=== PATIENT | female | born 1960 | race Caucasian/White ===

== ENCOUNTER 2022-11-09 07:22 | Emergency (ER) | payer OTHER, SELFPAY ==
--- NOTE | ~2022-11-09 | XR_ITS ---
EXAMINATION: XR shoulder RT min 2V DATE: 11/09/2022 07:44 INDICATION: Right shoulder pain. Fall. TECHNIQUE: 4 views of right shoulder were obtained. COMPARISON: None. FINDINGS: Bone alignment is normal. No fracture. Glenohumeral joint is normal. There is severe acromi oclavicular joint osteoarthritis. IMPRESSION: 1. Severe right acromioclavicular joint osteoarthritis. Reviewed, dictated and finalized at location A.
[2022-11-09 07:28] VITALS: BP 129/68; PULSE 76; RESP 18; TEMP 36.3; O2SAT 100
--- NOTE | 2022-11-09 07:30 | ED.UPPEXIN ---
HPI - Extremity Injury (Upper) General Chief Complaint: Extremity Injury, Upper Stated Complaint: right shoulder injury Time Seen by Provider: 11/09/22 07:26 Source: patient and RN notes reviewed Mode of arrival: ambulatory Limitations: no limitations History of Present Illness HPI narrative: This is a right hand dominant 62 year old female who presents for evaluation of right shoulder pain. PAtient states that her dog knocked her down onto her right shoulder. She reports mild pain to right shoulder but she reports she is unable to lift. She has not taken any medication for pain. She reports pain 4/10. She denies hitting her head or LOC. She denies numbness tingling. Related Data Allergies Allergy/AdvReac Type Severity Reaction Status Date / Time Sulfa (Sulfonamide Allergy Unknown Unknown Verified 11/09/22 07:36 Antibiotics) Review of Systems Review of Systems: All systems reviewed & are unremarkable except as noted in HPI and below PMFSH Surgical History Surgical History (Updated 11/09/22 @ 07:31 by Amarilys Pedraza MD) H/O: hysterectomy History of tonsillectomy Social History Social History (Updated 11/09/22 @ 07:31 by Amarilys Pedraza MD) Smoking status: Current every day smoker Exam Const: General: no acute distress and alert Nutritional Appearance: well nourished Orientation/consciousness: patient oriented x3 HENMT: Head: normal to inspection Eyes: EOM: EOMs intact bilaterally Neck: Neck: normal visual inspection Resp: Effort & Inspection: normal respiratory effort Auscultation: clear to auscultation bilaterally Cardio: Rate: regular rate Rhythm: regular rhythm Heart sounds: no murmurs Skin: General skin exam: normal color Rashes: no rashes Wounds: no wounds Neuro: General: patient oriented x3, moves all extremities and CN's II-XI intact bilaterally Extrem: Other: no shoulder deformity, no bruising, no swelling. PAtient is unable to abduct at shoulder due to pain. bilateral equal pedal pulses Psych: Mental Status: mental status grossly normal Affect: normal affect Attitude: cooperative Course Reevaluation(s) Reevaluation #1: I discussed with patient shoulder shows severe osteoarthritis. She has been given ibuprofen and right arm sling. She will follow up with PCP in 1-2 weeks for reassessment. Date: 11/09/22 Time: 08:15 Vital Signs Vital signs: Vital Signs Temperature 97.4 F L 11/09/22 07:28 Pulse Rate 76 11/09/22 07:28 Respiratory Rate 18 11/09/22 07:28 Blood Pressure 129/68 11/09/22 07:28 Pulse Oximetry 100 11/09/22 07:28 Oxygen Delivery Room Air 11/09/22 07:28 Temperature 97.4 F L 11/09/22 07:28 Pulse Rate 76 11/09/22 07:28 Respiratory Rate 18 11/09/22 07:28 Blood Pressure 129/68 11/09/22 07:28 Pulse Oximetry 100 11/09/22 07:28 Oxygen Delivery Room Air 11/09/22 07:28 MDM - Extremity Injury (Upper) Differential Diagnosis Differential diagnosis: Likely dislocation of shoulder, fracture of humerus, fracture of clavicle and other (shoulder sprain. ) Imaging Data Radiologist's impression: ITS Impressions Shoulder X-Ray 11/09/22 07:47 IMPRESSION: 1. Severe right acromioclavicular joint osteoarthritis. Discharge Plan Discharge Clinical Impression: Injury of right shoulder Qualifiers: Encounter type: initial encounter Qualified Code(s): S49.91XA - Unspecified injury of right shoulder and upper arm, initial encounter Patient Disposition: Home, Self-Care Condition: Stable Instructions: How to Use a Sling (ED), Shoulder Pain (ED), Rotator Cuff Injury Exercises (DC) Additional Instructions: Follow up with your primary care provider or orthopedic surgeon in 1-2 weeks if pain has not improved. Prescriptions: New ibuprofen 600 mg tablet 600 mg PO TID PRN (Reason: pain) Qty: 20 0RF Follow-up/Referrals: PHYSICIAN,BOND WRITER [Primary Care Provider] - [place] Eduardo M
--- NOTE | 2022-11-09 08:05 | PC.NURSE ---
ERP orders for a arm sling instead of immobilizer. RN applies sling. PMS is present after application.
[2022-11-09] MEDS: IBUPROFEN 600 MG TABLET PO (08:10)
[2022-11-09 08:19] VITALS: BP 106/55; PULSE 71; RESP 18; O2SAT 97
== END 2022-11-09 08:25 | disposition home or self-care (01) ==
PROVIDERS: Emergency Provider General Practice
DX: S49.91XA Unspecified injury of right shoulder and upper arm, initial encounter (principal); F17.200 Nicotine dependence, unspecified, uncomplicated; Z90.710 Acquired absence of both cervix and uterus; M19.011 Primary osteoarthritis, right shoulder; W54.1XXA Struck by dog, initial encounter
CPT/HCPCS: 73030; 99283; A4565; A9270

== ENCOUNTER 2023-11-20 07:59 | Outpatient (CLI) | payer OTHER, SELFPAY ==
--- NOTE | ~2023-11-20 | MR_ITS ---
MRI of the right shoulder Technique: Axial proton-density fat-sat images, coronal proton density fat-sat and T2 fat-sat images, and sagittal T1-weighted and T2 fat-sat images were acquired. Clinical History: Injury Findings: There is moderate AC joint degenerative change, with subacromial spur present. Coracoclavic ular, coracoacromial, and coracohumeral ligaments are intact. There is full-thickness tear involving essentially the entire supraspinatus tendon. Fluid-filled gap measures approximately 2.6 x 2.5 cm in extent. Infraspinatus tendon is intact, with moderate to sever e tendinosis. Subscapularis tendon is intact, with mild to moderate tendinosis. Tendon of the long he ad of the biceps is intact. No labral tear evident. Inferior glenohumeral ligament is intact. There is no significant degenerative change of the glenohum eral joint. There is minimal glenohumeral joint effusion. There is minimal fluid in the subacromial/s ubdeltoid bursa. No muscle atrophy or edema evident. Impression: Complete, full-thickness tear of the supraspinatus tendon, as detailed above. Background rotator cuff tendinosis, as above. Moderate AC joint degenerative change. Reviewed, dictated and finalized at location . Impression: Complete, full-thickness tear of the supraspinatus tendon, as detailed above. Background rotator cuff tendinosis, as above. Moderate AC joint degenerative change.
== END 2023-11-20 08:00 | disposition home or self-care (01) ==
LOC: ANHIMG 08:02
PROVIDERS: PCP Physician Assistant; Visit Provider Orthopaedic Surgery
DX: S46.811A Strain of other muscles, fascia and tendons at shoulder and upper arm level, right arm, initial encounter (principal)
CPT/HCPCS: 73221

== ENCOUNTER 2023-12-03 08:48 | Outpatient (CLI) | payer OTHER, SELFPAY ==
--- NOTE | ~2023-12-03 | XR_ITS ---
EXAMINATION: XR chest 2V DATE: 12/03/2023 09:13 INDICATION: Preop. TECHNIQUE: Frontal and lateral views of the chest were obtained. COMPARISON: None. FINDINGS: There is no pneumonia, pleural effusion, or pneumothorax. The heart size is normal. There i s chronic anterior wedging of multiple mid thoracic vertebral bodies. IMPRESSION: 1. No acute cardiopulmonary disease. Reviewed, dictated and finalized at location A.
--- NOTE | 2023-12-03 09:19 | ECG_ITS ---
Test Date: 2023-12-03 09:28:13 Measurements Intervals [place] Rate: P: VA: QRS: QRSD: T: QT: QTc: Interpretive Statements SINUS RHYTHM NORMAL ECG Electronically Signed On 12-03-2023 15:20:46 CDT by Mumtaz Alvarado D.O.
== END 2023-12-03 08:49 | disposition home or self-care (01) ==
PROVIDERS: PCP Physician Assistant; Visit Provider Physician Assistant
DX: Z01.818 Encounter for other preprocedural examination (principal)
CPT/HCPCS: 71046; 93005

== ENCOUNTER 2023-12-13 10:02 | Outpatient (CLI) | payer OTHER, SELFPAY ==
--- NOTE | ~2023-12-13 | CT_ITS ---
CT Scan of the Chest without Contrast: Clinical Indication: Lung cancer screening, nicotine dependence Technique: Contiguous sections were acquired throughout the chest without intravenous contrast. Dose reduction technique was used on this scan by utilizing automated exposure control and iterative recon struction technique. The dose-length product (DLP) was 72.74 mGy-cm. Findings: There is no evidence of any significant mediastinal, hilar or axillary lymphadenopathy. The mediastin al soft tissues appear normal. There is no evidence of pleural or pericardial effusion. There is a 10 mm fissural nodule along the right minor fissure (axial image 70). Images through the upper abdomen reveal 8.2 cm left renal mass with extensive macroscopic fat, compat ible with large angiomyolipoma. T9 compression fracture noted. Impression: Lung RADS 4A: Suspicious. 3 month follow-up CT recommended. PET CT could also be considered. 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 T9 compression fracture. Reviewed, dictated and finalized at location . Impression: Lung RADS 4A: Suspicious. 3 month follow-up CT recommended. PET CT could also b e considered. 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 T9 compression fracture.
== END 2023-12-13 10:03 | disposition home or self-care (01) ==
LOC: ANHIMG 10:04
PROVIDERS: PCP Physician Assistant; Visit Provider Physician Assistant
DX: Z12.2 Encounter for screening for malignant neoplasm of respiratory organs (principal); Z87.891 Personal history of nicotine dependence; R91.8 Other nonspecific abnormal finding of lung field
CPT/HCPCS: 71271

== ENCOUNTER 2023-12-26 08:27 | Outpatient (CLI) | payer OTHER, SELFPAY ==
--- NOTE | ~2023-12-26 | MM_ITS ---
EXAMINATION: MM screening jose BI w cb HISTORY: Screening TECHNIQUE: Craniocaudal and mediolateral oblique 3-D tomosynthesis images were obtained and synthetic 2-D images were generated. CAD analysis was submitted and interpreted. COMPARISON: No prior mammogram is available for comparison at this institution. BREAST PARENCHYMAL COMPOSITION: Not Dense: The breasts are almost entirely fatty. FINDINGS: There is no evidence of suspicious mass, calcification, or architectural distortion to sugg est malignancy in either breast. There has been no suspicious interval change. IMPRESSION: 1. No mammographic evidence of malignancy. 2. Recommend routine screening mammography in one year. BI-RADS Category 1: Negative Reviewed, dictated and finalized at location B.
== END 2023-12-26 08:28 | disposition home or self-care (01) ==
LOC: ANHIMG 08:28
PROVIDERS: PCP Physician Assistant; Visit Provider Physician Assistant
DX: Z12.31 Encounter for screening mammogram for malignant neoplasm of breast (principal)
CPT/HCPCS: 77063; 77067

== ENCOUNTER 2024-01-09 09:02 | Outpatient (CLI) | payer OTHER, SELFPAY ==
--- NOTE | ~2024-01-09 | PE_ITS ---
EXAMINATION: PET skull to mid thigh DATE: 01/09/2024 11:01 INDICATION: Lung nodule TECHNIQUE: Blood glucose level was 112 mg/dL. 9.982 mCi of 18-fluorodeoxyglucose (18-FDG) was adminis tered i.v. Low dose computed tomography (CT) images were acquired from the base of the brain to the p roximal thighs for attenuation correction and anatomic localization. Positron emission tomography (PE T) images were acquired in the same distribution beginning 57 minutes after injection. Images includi ng fused PET/CT images were reconstructed in axial, coronal, and sagittal planes. Automated exposure control technique was employed. The dose-length product was 854.13mGy-cm. COMPARISON: Chest CT dated 12/13/2023 FINDINGS: Head/neck: There is symmetric increased activity in the oral cavity, palatine and lingual tonsils, laryngeal mus cles and ocular muscles without CT correlate, likely physiologic. No pathologically enlarged cervical lymphadenopathy or suspicious foci of increased FDG uptake in the visualized head or neck. Chest: Small calcified left lower lobe nodule and calcified mediastinal lymph nodes consistent with old gran ulomatous disease. Mild emphysema. Mild dependent atelectasis in both lower lobes. No evident FDG upt fern associated with the previous noted nodule along the right minor fissure. When visualized on the s agittal images these appear to represent 2 separate likely benign flat lizz fissural nodules, the sma ller measuring 5 mm in maximal diameter extending caudal to the fissure and the second measuring 7 mm in maximal diameter extending cephalad to the fissure. No other suspicious pulmonary nodules, pneumo dimitri, pulmonary edema or pleural effusion. Heart size is normal. No pericardial effusion. Thoracic aor ta is normal in caliber. There is diffuse mild uptake along the mid to distal esophagus suggestive of esophagitis which could be related to reflux. There is a small sliding-type hiatal hernia. No pathol ogically enlarged or FDG avid thoracic lymphadenopathy. Abdomen/pelvis/proximal thighs: Physiologic renal accumulation and excretion of FDG activity in the kidneys, bladder and along portio ns of ureters. Again seen is an 8.5 x 5.3 cm mixed macroscopic fat and soft tissue density mass arisi ng from the upper pole of the left kidney with prominent draining vessels most consistent with an ang iomyolipoma. There is increased FDG uptake associated with the mass. There are also multiple new dens ities within the mass which suggests interval embolization. There are a few small nonobstructing ston es in the right kidney measuring <3 mm each. Normal degree and heterogenous pattern of increased upta ke throughout the liver without radiologic correlate or dominant FDG avid lesion. There are a few sma ll low-attenuation hepatic cysts, the largest along the gallbladder fossa measuring 1.3 cm with corre sponding photopenic defect on PET imaging. The gallbladder, pancreas, spleen and bilateral adrenal gl ands are normal. Moderate uptake scattered throughout the bowels without radiologic correlate, also l ikely physiologic. Photopenic defect associated with a 3.0 cm left adnexal cyst. The uterus is not id entified and has likely been surgically resected. There is increased FDG uptake at the right groin wh ich appears associated with stranding surrounding the right, and femoral artery and vein as opposed t o a few small right inguinal lymph nodes this is more likely related to recent vascular access likely associated with the suspected embolization of the left renal mass. Correlate with surgical history. No other pathologically enlarged or FDG avid abdominal, pelvic or inguinal lymphadenopathy. Musculoskeletal: There is mild uptake such with a healing anterior right third rib fracture. No other suspicious lytic , blastic or abnormally FDG avid bone lesions. IMPRESSION: 1. No abnormal FDG uptake associated with a couple small likely perifissu
[2024-01-09 09:32] LABS: Glucose Point of Care 112 mg/dl (65-105)
== END 2024-01-09 09:03 | disposition home or self-care (01) ==
LOC: ANHIMG 09:04
PROVIDERS: PCP Physician Assistant; Visit Provider Physician Assistant
DX: R91.1 Solitary pulmonary nodule (principal); K44.9 Diaphragmatic hernia without obstruction or gangrene
CPT/HCPCS: 78815; A9552

== ENCOUNTER 2024-08-11 09:18 | Outpatient (CLI) | payer OTHER, SELFPAY ==
--- NOTE | 2024-08-11 | ECG_ITS ---
Test Date: 2024-08-11 10:30:39 Measurements Intervals [place] Rate: 75 P: 152 MS: 171 QRS: -14 QRSD: 82 T: 150 QT: 372 QTc: 418 Interpretive Statements ECTOPIC ATRIAL RHYTHM POSSIBLE LEFT ATRIAL ENLARGEMENT [-0.1mV P-WAVE IN V1/V2] POSSIBLE LATERAL MYOCARDIAL INFARCTION , OF INDETERMINATE AGE [30 ms Q WAVE IN I/aVL/V5/V6] No previous ECG available for comparison Electronically Signed On 08-11-2024 13:42:11 CDT by Levar Claudio M.D.
--- NOTE | ~2024-08-11 | XR_ITS ---
EXAMINATION: XR chest 2V 08/11/2024 09:37 INDICATION: Preop clearance PROCEDURE: 2 view chest COMPARISON: 12/03/2023 FINDINGS: The lungs are clear. The cardiomediastinal silhouette is within normal limits. There are no pleural effusions. There is no pneumothorax suspected. There is a chronic mid thoracic wedge com pression fracture. There are breast implants. IMPRESSION: 1: NO ACUTE CARDIOPULMONARY DISEASE. Reviewed, dictated and finalized at location B.
--- OUTSIDE RECORDS SUMMARY | 2024-08-11 09:38 | XMS_ITS | Referral Summary ---
Author Organization [facility] Address [address] [place] [address] Care Team Providers Care Concrete Rod Buster Name Role Phone Laura Choudhary Primary Care Provider + Encounters Date Type Department Care Team Description 07/30/2024 3:00 PM CDT Lab [facility] Office Building [address] [place] [address] Renal angiomyolipoma 07/30/2024 3:20 PM CDT Office Visit [facility] Surgery [address] [place] [address] [address] [place] [address] Donald Nicolas MD Renal angiomyolipoma 07/29/2024 Telephone [facility] Surgery [address] [place] [address] [address] [place] [address] Shilpa Barcenas RMA 07/24/2024 Results Follow-Up [facility] Surgery [address] [place] [address] [address] [place] [address] Donald Nicolas MD Surgical pathology 07/17/2024 10:24 AM CDT - 07/18/2024 12:16 PM CDT Hospital Encounter [address] [address] Donald Nicolas MD Kidney lesion Discharge Disposition: Discharge to home or self care 07/17/2024 Orders Only [facility] Surgery [address] [place] [address] [address] [place] [address] Donald Nicolas MD Renal angiomyolipoma (Primary Dx) 07/17/2024 12:50 PM CDT - 07/17/2024 8:00 PM CDT Surgery [facility] Operating Room 1 [place] [address] Donald Nicolas MD XI RADICAL NEPHRECTOMY - LAPAROSCOPIC ROBOTIC ASSISTED 07/17/2024 11:47 AM CDT Anesthesia Event [facility] Operating Room 1 [place] [address] Manuel Sullivan MD Richardson, Genea Michelle, NP 06/24/2024 Telephone [facility] Surgery [address] [place] [address] [address] [place] [phone] Shilpa Barcenas, [facility] 06/22/2024 Telephone [facility] Surgery [address] [place] [address] [address] [place] [address] Meliza Barcenasl, [facility] 06/17/2024 2:00 PM CDT Pre-Admission Testing [facility] Center for Preoperative Assessment and Planning [facility] ([facility]) [address] [place] [address] Preoperative testing (Primary Dx); Kidney lesion 05/19/2024 9:56 AM DOCTOR CHIROPRACTIC - 05/19/2024 11:59 PM DOCTOR CHIROPRACTIC Hospital Encounter [facility] [place] [address] [place] [address] [place] [address] Renal angiomyolipoma Discharge Disposition: Discharge to home or self care 05/19/2024 10:40 AM DOCTOR CHIROPRACTIC Office Visit [facility] Surgery [address] [place] [address] [address] [place] [address] Donald Nicolas MD Renal angiomyolipoma (Primary Dx) from Last 3 Months Allergies Active Allergy Reactions Criticality Noted Date Comments Sulfa (Sulfonamide Antibiotics) Vomiting Low Medications amitriptyline (ELAVIL) 100 mg tabletIndicatio ns:Insomnia Take 1 tablet (100 mg total) by mouth nightly 12/30/2019 Active atorvastatin (LIPITOR) 40 mg tablet Take 1 tablet (40 mg total) by mouth nightly Active aspirin 81 mg enteric coated tablet Take 1 tablet (81 mg total) by mouth daily 05/12/2021 Active acetaminophen 500 mg capsuleIndicati ons:Pain Take 2 capsules (1,000 mg total) by mouth every 6 (six) hours 30 tablet 07/18/2024 Active oxyCODONE (ROXICODONE) 5 mg immediate release tabletIndicatio ns:Pain Take 1 tablet (5 mg total) by mouth every 4 (four) hours as needed for pain 10 tablet 07/18/2024 Active polyethylene glycol (MIRALAX) 17 gram/dose bulk powderIndicatio ns:constipation Take 17 g by mouth daily 510 g 07/18/2024 Active scopolamine 1 mg over 3 days patch [address] 1 patch on the skin every third day for 72 hours 14 patch 07/18/2024 Active Active Problems Problem Noted Date Diagnosed Date Kidney lesion 05/19/2024 Nausea and vomiting, unspecified vomiting type 1 Assessment & Plan (01/06/2024 11:31 AM CDT): 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 Woke up 01/03 with N/V so presented to the ED - ED labs reassuring (leukocytosis and elevated lactate attributable to procedure) - IR consulted in ED, presentation c/w embolization syndrome - IVF - Supportive care with antiemetics and pain control - Symptoms improved, advanced to regular diet - Low c/f procedural bleeding at this time given lack of pain and stable hgb - IR consented to discharge if tolerating PO - DC Rx: short course oxy 5 Q4, zofran, senna Renal angiomyolipoma 01/03/2024 Assessment & Plan (01/06/2024 11:13 AM CDT): S/p embolization with IR 01/02. Was planned for overnight observation but pt wanted to dc home instead. Presented to the ED 01/03 with N/V. - See N/V above - Continue f/u with urology Dyslipidemia 03/09/2020 Assessment & Plan (01/06/2024 11:13 AM CDT): - Cont statin Vasovagal syncope 01/20/2020 Cyclical vomiting 01/20/2020 Tobacco abuse 01/20/2020 Marijuana abuse 01/20/2020 Social History Tobacco Use Types Packs/Day Years Used Date Smoking Tobacco: Every Day Cigarettes 0.5 52.4 Started: 1972 Smokeless Tobacco: Never Tobacco Cessation:Ready to Q uit: Not Asked; Counseling Given: Not Answered Alcohol Use Standard Drinks/Week Comments Not Currently 0 (1 standard drink = 0.6 oz pur e alcohol) AUDIT-C Answer Date Recorded Q1: How often do you have a drink containing alcohol? Never 07/17/2024 Q2: How many drinks containi ng alcohol do you have on a typical day when you are drinking? Patient does not drink Q3: How often do you have si x or more drinks on one occasion? Never 07/17/2024 Personal Safety Answer Date Recorded Have you ever been in or are you currently in a harmful physical or emotional relationship or is someone making you feel afraid or unsafe? Denies 07/17/2024 Comments No Sex and Gender Information Value Date Recorded Sex Assigned at Not on file Legal Sex Female 8:28 AM DOCTOR CHIROPRACTIC Gender Identity Not on file Sexual Orientation Not on file Last Filed Vital Signs Vital Sign Reading Time Taken Comments Blood Pressure 149/72 07/18/2024 8:55 AM CDT Pulse 73 07/18/2024 8:55 AM CDT Temperature 36.6 C (97.9 F) 07/18/2024 8:55 AM CDT Respiratory Rate 16 07/18/2024 8:55 AM CDT Oxygen Saturation 100% 07/18/2024 8:55 AM CDT Inhaled Oxygen Concentration - - Weight 67.6 kg (149 lb) 07/30/2024 3:07 PM CDT Height 160 cm (5' 2.99 ) 07/30/2024 3:07 PM CDT Body Mass Index 26.4 07/30/2024 3:07 PM CDT Plan of Treatment Not on file Medical Devices Implanted Type Area Field Crop Technical Officer Device Identifier Shelf Expiration Date Model / Serial / Lot [employer] Coil Embolization Coated Detachable Helical Concerto [id number] Nylon Vq-7-9-[place] - [id number] Implanted:Qty: 1 on 01/03/2024 at [facility] [employer] 08/21/2026 NV-4-8-BELLA X / / [id number] [employer] Coil Embolization Coated Detachable Helical Concerto [id number] Nylon Xj-2-1-[place] - [id number] Implanted:Qty: 1 on 01/03/2024 at [facility] [employer] 10/03/2026 NV-3-4-BELLA X / / [id number] [employer] Coil Embolization Coated Detachable Helical Concerto [id number] Nylon Mz-4-9-[place] - [id number] Implanted:Qty: 1 on 01/03/2024 at [facility] [employer] 10/27/2026 NV-3-4-BELLA X / / [id number] [employer] Coil Embolization Coated Detachable Helical Concerto [id number] Nylon Sx-2-5-[place] - [id number] Implanted:Qty: 1 on 01/03/2024 at [facility] [employer] 08/21/2026 NV-4-8-BELLA X / / [id number] [employer] Coil Embolization Coated Detachable Helical Concerto [id number] Nylon Ci-3-2-[place] - [id number] Implanted:Qty: 1 on 01/03/2024 at [facility] [employer] 07/14/2026 NV-3-4-BELLA X / / [id number] [employer] Coil Embolization Coated Detachable Helical Concerto [id number] Nylon Mn-8-8-[place] - [id number] Implanted:Qty: 1 on 01/03/2024 at [facility] [employer] 05/29/2026 NV-3-4-BELLA X / / [id number] [employer] Angio-Seal Vip 6fr Closere Device [id number] - [id number] Implanted:Qty: 1 on 01/03/2024 at [facility] [employer] 06/13/2024 [id number] / / [id number] Procedures Procedure Name Priority Date/Time Associated Diagnosis Comments EGFR Routine 07/30/2024 3:01 PM CDT Renal angiomyolipoma CBC WITHOUT DIFFERENTIAL Routine 07/30/2024 3:01 PM CDT Renal angiomyolipoma BASIC METABOLIC PANEL Routine 07/30/2024 3:01 PM CDT Renal angiomyolipoma EGFR Timed 07/17/2024 9:56 PM CDT CBC WITHOUT DIFFERENTIAL Timed 07/17/2024 9:56 PM CDT BASIC METABOLIC PANEL Timed 07/17/2024 9:56 PM CDT MAGNESIUM Timed 07/17/2024 9:56 PM CDT PHOSPHORUS Timed 07/17/2024 9:56 PM CDT SURGICAL PATHOLOGY Routine 07/17/2024 3: 55 PM CDT Kidney lesion HI AN PROCEDURE PLACEHOLDER Routine 07/17/2024 12:10 PM CDT HI AN PROCEDURE PLACEHOLDER Routine 07/17/2024 12:09 PM CDT HI AN PROCEDURE PLACEHOLDER Routine 07/17/2024 12:09 PM CDT HI AN ELECTIVE ENDOTRACHEAL AIRWAY Routine 07/17/2024 12:09 PM CDT XI NEPHRECTOMY - LAPAROSCOPIC ROBOTIC ASSISTED 07/17/2024 11:52 AM CDT Kidney lesion Case Notes 06/24-Case has approval from Dr. Prieto to run passed 1899 via email (EF) 06/22- updated date to 07/17 per office via staff msg asking Dr. Prieto for permission to run late. (EF)05/20- 285+[id number]= 345 Epic time (EF) EGFR Routine 06/17/2024 2:53 PM CDT Kidney lesion DIFFERENTIAL AUTO Routine 06/17/2024 2:5 3 PM CDT Preoperative testing TYPE AND SCREEN 14 DAY Routine 06/17/2024 2:53 PM CDT Preoperative testing CBC WITH AUTO DIFFERENTIAL Routine 06/17/2024 2:53 PM CDT Preoperative testing BASIC METABOLIC PANEL Routine 06/17/2024 2:53 PM CDT Kidney lesion CT ABDOMEN W WO CONTRAST Schedule Routine, Read Routine (OP Routine) 05/19/2024 10:15 AM DOCTOR CHIROPRACTIC Renal angiomyolipoma POCT CREATININE FOR CONTRAST EVALUATION Routine 05/19/2024 10:07 AM DOCTOR CHIROPRACTIC from Last 3 Months Results * (ABNORMAL) eGFR (07/30/2024 3:01 PM CDT) eGFR 56(L) >=60 mL/min/1. 73 m2 Comment: Interpretive Data Reference Interval Normal >/= 90 mL/min/1.73m2 Mildly decreased* 60 - 89 mL/min/1.73m2 Mildly to moderately decreased 45 - 59 mL/min/1.73m2 Moderately to severely decreased 30 - 44 mL/min/1.73m2 Severely decreased 15 - 29 mL/min/1.73m2 Kidney Failure < 15 mL/min/1.73m2 *Relative to young adult level Estimated glomerular filtration rate is determined by the 2020 CKD-EPI equation recommended by the National Kidney Foundation (A Unifying Approach to GFR Estimation: Recommendations of the NKF-ASK Task Force on Reassessing the Inclusion of Race in Diagnosing Kidney Disease, JASN 2020). The CKD-EPI equation should not be used for patients with unstable renal function and has not been validated in children and those over 70. Current interpretive data was last reviewed 2021. Testing performed by: [facility], [address] [place] [address], [place]., [address] Blood 07/30/2024 3:01 PM CDT 07/30/2024 4:15 PM CDT us Donald Nicolas MD LAB BLOOD ORDERABLES Final Resul t [facility] [address] [place] [address] Department [place] [address] * (ABNORMAL) CBC without differential (07/30/2024 3:01 PM CDT) [facility] WBC 11.10(H) 3.80 - 9.90 K/cumm Comment:Testing performed by : [address] [address] Hgb 10.9(L) 11.9 - 15.5 g/dL [facility] Comment:Testing performed by : [address] [address] Hct 34.9(L) 35.6 - 45.5 % [facility] Comment:Testing performed by : [address] [address] Plt 471(H) 150 - 400 K/cumm [facility] Comment:Testing performed by : [address] [address] MPV 9.6 9.1 - 12.3 fL [facility] Comment:Testing performed by : [address] [address] RBC 3.58(L) 3.90 - 5.20 M/cumm [facility] Comment:Testing performed by : [address] [address] MCV 97.5(H) 81.3 - 96.4 fL [facility] Comment:Testing performed by : [address] [address] MCH 30.4 27.1 - 33.3 pg [facility] Comment:Testing performed by : [address] [address] MCHC 31.2(L) 32.3 - 35.7 g/dL [facility] Comment:Testing performed by : [address], [address] RDW CV 14.7 11.1 - 14.9 % [facility] Comment:Testing performed by : [address] [address] RDW SD 53.4(H) 35.7 - 48.1 fL [facility] Comment:Testing performed by : [address] [address] NRBC abs 0.00 0.00 - 0.01 K/cumm [facility] Comment:Testing performed by : [address] [address] Blood 07/30/2024 3:01 PM CDT 07/30/2024 4:17 PM CDT Narrative [facility] - 07/30/2024 4:26 PM CDT S/p left radical nephrectomy us Donald Nicolas MD LAB BLOOD ORDERABLES Final Resul t [facility] [address] [facility] Department [place] [address] * Basic metabolic panel (07/30/2024 3:01 PM CDT) Sodium 136 135 - 145 mmol/L Comment:Testing performed by : [address] [address] Potassium, pl 4.2 3.3 - 4.9 mmol/L [facility] Comment:Testing performed by : [address] [address] Chloride 102 97 - 110 mmol/L [facility] Comment:Testing performed by : [address] [address] CO2 25 22 - 32 mmol/L [facility] Comment:Testing performed by : [address] [address] Anion gap 9 2 - 15 mmol/L [facility] Comment:Testing performed by : [address] [address] BUN 14 6 - 25 mg/dL [facility] Comment:Testing performed by : [address] [address] Creatinine 1.10 0.60 - 1.10 mg/dL [facility] Comment:Testing performed by : [address] [address] Glucose 126 70 - 199 mg/dL [facility] Comment: Interpretive Data Fasting glucose >/= 126 mg/dl is diagnostic for diabetes. Fasting is defined as no caloric intake for at least 8 hours. Fasting glucose between 100 mg/dl to 125 mg/dl is diagnostic of prediabetes. In a patient with classic symptoms of hyperglycemia or hyperglycemic crisis, a random glucose >/= 200 mg/dl is diagnostic for diabetes. In the absence of unequivocal hyperglycemia, results should be confirmed by repeat testing. The classification and Diagnosis of Diabetes Diabetes Care 202; 46: S19-S40. Current interpretive data was last revised 2022. Testing performed by: [facility], [address] [place] [address]., [address] Calcium 9.1 8.5 - 10.3 mg/dL [facility] Comment:Testing performed by : [address] [address] Blood 07/30/2024 3:01 PM CDT 07/30/2024 4:15 PM CDT Narrative [facility] - 07/30/2024 4:30 PM CDT S/p left radical nephrectomy us Donald Nicolas MD LAB BLOOD ORDERABLES Final Resul t [facility] [address] [facility] Department [place] [address] * (ABNORMAL) eGFR (07/17/2024 9:56 PM CDT) eGFR 56(L) >=60 mL/min/1. 73 m2 Comment: Interpretive Data Reference Interval Normal >/= 90 mL/min/1.73m2 Mildly decreased* 60 - 89 mL/min/1.73m2 Mildly to moderately decreased 45 - 59 mL/min/1.73m2 Moderately to severely decreased 30 - 44 mL/min/1.73m2 Severely decreased 15 - 29 mL/min/1.73m2 Kidney Failure < 15 mL/min/1.73m2 *Relative to young adult level Estimated glomerular filtration rate is determined by the 2020 CKD-EPI equation recommended by the National Kidney Foundation (A Unifying Approach to GFR Estimation: Recommendations of the NKF-ASK Task Force on Reassessing the Inclusion of Race in Diagnosing Kidney Disease, JASN 2020). The CKD-EPI equation should not be used for patients with unstable renal function and has not been validated in children and those over 70. Current interpretive data was last reviewed 2021. Blood 07/17/2024 9:56 PM CDT 07/17/2024 10:17 PM CDT Donald Nicolas MD LAB BLOOD ORDERABLES Final Resul t Performing Organization Address City/[facility]/ZIP Co de Phone Number [facility] [place] [address] * (ABNORMAL) CBC without differential (07/17/2024 9:56 PM CDT) WBC 13.28(H) 3.80 - 9.90 K/cumm Hgb 11.8(L) 11.9 - 15.5 g/dL [facility] Hct 35.6 35.6 - 45.5 % [facility] Plt 282 150 - 400 K/cumm [facility] MPV 9.9 9.1 - 12.3 fL [facility] RBC 3.87(L) 3.90 - 5.20 M/cumm [facility] MCV 92.0 81.3 - 96.4 fL [facility] MCH 30.5 27.1 - 33.3 pg [facility] MCHC 33.1 32.3 - 35.7 g/dL [facility] RDW CV 14.8 11.1 - 14.9 % [facility] RDW SD 50.2(H) 35.7 - 48.1 fL [facility] NRBC abs 0.00 0.00 - 0.01 K/cumm [facility] Blood 07/17/2024 9:56 PM CDT 07/17/2024 10:17 PM CDT Donald Nicolas MD LAB BLOOD ORDERABLES Final Resul t Performing Organization Address City/[facility]/ZIP Co de Phone Number [facility] Department [place] [address] * Phosphorus (07/17/2024 9:56 PM CDT) [facility] Phosphorus, pl 3.4 2.3 - 4.5 mg/dL Blood 07/17/2024 9:56 PM CDT 07/17/2024 10:17 PM CDT Donald Nicolas MD LAB BLOOD ORDERABLES Final Resul t Performing Organization Address City/[facility] Co de Phone Number [facility] Department [place] [address] * Magnesium (07/17/2024 9:56 PM CDT) [facility] Magnesium 2.5 1.4 - 2.5 mg/dL Blood 07/17/2024 9:56 PM CDT 07/17/2024 10:17 PM CDT Donald Nicolas MD LAB BLOOD ORDERABLES Final Resul t Performing Organization Address [facility] de Phone Number [facility] Department [place] [address] * (ABNORMAL) Basic metabolic panel (07/17/2024 9:56 PM CDT) [facility] Sodium 140 135 - 145 mmol/L Potassium, pl 4.3 3.3 - 4.9 mmol/L [facility] Chloride 107 97 - 110 mmol/L [facility] CO2 25 22 - 32 mmol/L [facility] Anion gap 8 2 - 15 mmol/L [facility] BUN 13 6 - 25 mg/dL [facility] Creatinine 1.11(H) 0.60 - 1.10 mg/dL [facility] Glucose 134 70 - 199 mg/dL [facility] Comment: Interpretive Data Fasting glucose >/= 126 mg/dl is diagnostic for diabetes. Fasting is defined as no caloric intake for at least 8 hours. Fasting glucose between 100 mg/dl to 125 mg/dl is diagnostic of prediabetes. In a patient with classic symptoms of hyperglycemia or hyperglycemic crisis, a random glucose >/= 200 mg/dl is diagnostic for diabetes. In the absence of unequivocal hyperglycemia, results should be confirmed by repeat testing. The classification and Diagnosis of Diabetes Diabetes Care 202; 46: S19-S40. Current interpretive data was last revised 2022. Calcium 9.1 8.5 - 10.3 mg/dL [facility] Blood 07/17/2024 9:56 PM CDT 07/17/2024 10:17 PM CDT us Donald Nicolas MD LAB BLOOD ORDERABLES Final Resul t [facility] Department [place] [address] * Surgical pathology (07/17/2024 3:55 PM CDT) Tissue (Kidney, total nephrectomy) 07/17/2024 3:55 PM CDT Comment:Specimen bi-valved o n surgical table Narrative PATHOLOGY [facility] - 07/24/2024 2:55 PM CDT EPIC results best viewed via link to PDF [facility] Christina Diaz Laboratory [place] [address] Note to Patients: This report may contain a detailed description of human tissue sent by a health care provider to the laboratory for pathologic evaluation. The content of this report is essential for diagnosis and may provide important critical findings. This information may be unfamiliar to patients to review without a medical professional present. It is advised that the patient review this report in the presence of a health care provider who can answer questions and explain the details. SURGICAL PATHOLOGY REPORT FINAL Patient Name: FRANCA ROGERS Gender: F : 1960 (Age: 64) Address: [address] [place] [id number] Hospital #: [id number] Taken:07/17/2024 Received:07/17/2024 Reported: 07/24/2024 Patient Type: [facility] Inpatient Service: Urology Location: [facility] 310 Physician(s): Donald Nicolas M.D. TREV Vasquez M.D. 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 Liliana Hinojosa M.D., PH.D. Report Electronically Reviewed and Signed Out By Liliana Hinojoas M.D., PH.D. 07/24/2024 14:55:34 Microscopic Description and Comment: Immunostains of HMB45, Melan A, CD31, and Cathepsin K were performed with appropriate control. The results support the diagnosis. Shay Jerez M.D. 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 Operative procedure: Radical nephrectomy Specimen(s) Received: A: Left kidney Gross Description: Received in formalin, labeled with the patient's identifiers and left kidney is a 394.1 g, 10.2 x 8.5 x 7.0 cm kidney with perinephric fat. Extending from the renal pelvis are a ureter (5.0 cm in length x 0.3 cm in diameter), renal vein (0.8 cm in length x 0.5 cm in diameter), and renal artery (0.3 cm in length x 0.3 cm in diameter). Gerota's fascia is mostly intact on the surface of the specimen. The vascular and ureteral margins are shaved, and the external surface is inked black. The specimen is already sectioned transversely in the operating room to show a 6.5 x 5.0 x 4.8 cm beige, friable, solid, adipose lesion located in interpolar region of the left kidney with mostly fatty cut surface. The mass lesion occupies more than 70% of the surface area of the mid-transverse plane and directly abuts the renal pelvis. The lesion measures 2.0 cm to the ureteral pelvic junction, 1.5 cm to the arterial vascular margin, and 1.0 cm to the renal vein margin. The mass is abutting the renal capsule, perinephric fat and soft tissue. The distal ureteral margin is remote. There are no additional renal pelvic mucosal lesions grossly visible. The uninvolved renal parenchyma is minimal and is red-brown, with a indistinct corticomedullary junction. The renal vein is opened to show no lesion. The perinephric fat is sectioned and dissected to show no lymph nodes. No adrenal gland is present. Tire Technician sections are submitted and labeled as follows: A1 Ureter, artery and vein margins, en face A2 Lesion to kidney parenchyma, upper pole A3 Lesion to kidney parenchyma, lower pole A4 Lesion to renal pelvic A5 Lesion to capsule A6 Lesion to perirenal adipose tissue A7 Putative necrotic area A8-A10 Additional sections of the lesion Jar 2. /07/20/2024 15:36 Gross Resident:Shay Jerez M.D. By this signature, I attest that the above diagnosis is based upon my personal examination of the slides(and/or other material). Addenda/Procedures The performance characteristics of some immunohistochemical stains, fluorescence in-situ hybridization tests and immunophenotyping by flow cytometry cited in this report (if any) were determined by the Surgical Pathology and Flow Cytometry Departments at [facility] as part of an ongoing water quality manager program and in compliance with federally mandated regulations drawn from the Clinical Laboratory Improvement Act of 1988 (CLIA '88). Some of these tests rely on the use of analyte specific reagents and are subject to specific labeling requirements by the US Food and Drug Administration. Such diagnostic tests may only be performed in a facility that is certified by the Department of Health and Human Services as a high complexity laboratory under CLIA '88. The FDA has determined that such clearance or approval is not necessary. This test is used for clinical purposes. It should not be regarded as investigational or for research. Nevertheless, federal rules concerning the medical use of analyte specific reagents require that the following disclaimer be attached to the report: This test was developed and its performance characteristics determined by the Surgical Pathology and Flow Cytometry Departments of [facility]. It has not been cleared or approved by the U. S. Food and Drug Administration. IMAGES AND SCANNED DOCUMENTS, IF INCLUDED, ONLY VIEWABLE IN PDF VERSION OF REPORT Donald Nicolas MD LAB PATHOLOGY ORDERABLES Final R esult PATHOLOGY [facility] 3rd Floor [place], [place] [phone] * HI AN PROCEDURE PLACEHOLDER (07/17/2024 12:10 PM CDT) Narrative Ashleigh Davis CRNA - 07/17/2024 12:10 PM CDT Ashleigh Davis CRNA 07/17/2024 1:16 PM Arterial Line Patient location: OR Indication: continuous blood pressure monitoring Staff: Supervising provider: Manuel Sullivan MD Placed by: CHILD CARE C[facility] ADMINISTRATOR: Ashleigh Davis CRNA Procedure prep: Prep solution: chlorhexadine/alcohol Prep: sterile gloves and provider hat/mask Arterial line: Catheter size: 20 gauge Catheter length: 1 and 3/4 inch Catheter type: angiocath Seldinger technique: yes Laterality: right Site: radial artery Line secured: tape and Tegaderm Results: good waveform Number of attempts: 1 Assessment: Events: patient tolerated procedure well with no complications us Manuel Sullivan MD ANESTHESIA ORDERABLES Ed ited Result - Final * HI AN PROCEDURE PLACEHOLDER (07/17/2024 12:09 PM CDT) Narrative Ashleigh Davis CRNA - 07/17/2024 12:09 PM CDT Ashleigh Davis CRNA 07/17/2024 12:10 PM Peripheral IV Catheter Patient location: OR Staff: Supervising provider: Manuel Sullivan MD Placed by: CHILD CARE CENTER ADMINISTRATOR: Ashleigh Davis CRNA Preprocedure prep: Prep solution: chlorhexadine PPE: gloves and provider hat/mask PIV line: Laterality: left Site: hand Catheter size: 18 g Technique: anatomical landmarks, direct visualization and palpatation Procedure details: occlusive dressing applied and good blood return Number of attempts: 1 Assessment: Events: patient tolerated procedure well with no complications us Manuel Sullivan MD ANESTHESIA ORDERABLES Fi nal Result * HI AN ELECTIVE ENDOTRACHEAL AIRWAY, HI AN PROCEDURE PLACEHOLDER (07/17/2024 12:09 PM CDT) Narrative Ashleigh Davis CRNA - 07/17/2024 12:09 PM CDT Ashleigh Davis CRNA 07/17/2024 1:16 PM Airway Patient location: OR Urgency: elective Indications for airway management: anesthesia Difficult airway: no Staff: Supervising provider: Manuel Sullivan MD Placed by: [facility] CARE C[facility] ADMINISTRATOR: Ashleigh Davis CRNA Emergent airway documentation: Risks and benefits discussed: yes Consent obtained: yes Consent given by: parent Airway prep: Patient position: sniffing Mask difficulty assessment: 0 - not attempted Spontaneous ventilation during airway: absent Sedation level during airway: GA Final airway details: Final airway type: endotracheal airway Tube type: ETT ETT size: 7.0 mm Cuffed: yes Technique used for successful ETT placement: video laryngoscopy Insertion site: oral Video blade type: Duran Blade size: 3 Cormack-Lehane (direct): grade IIa - partial view of glottis Cormack-Lehane (video): grade I - full view of glottis Initial cuff pressure: 29 cm H2O Cuff volume: 5 mL Cuff inflated with: air ETT to lips: 22 cm Placement verified by: auscultation and CO2 detection Airway secured with: silk tape Number of attempts: 1 Ventilation between attempts: BVM us Manuel Sullivan MD ANESTHESIA ORDERABLES Ed ited Result - Final * TYPE AND SCREEN 14 DAY (06/17/2024 2:53 PM CDT) ABO Rh A Negative Osito, indirect Negative [facility] Blood 06/17/2024 2:53 PM CDT 06/17/2024 4:15 PM CDT Narrative [facility] - 06/17/2024 5:26 PM CDT Is this test being ordered in advance for a procedure?->Yes Expected date of procedure:->07/01/24 Has the patient been transfused in the past 3 months?->No Has the patient been in the past 3 months?->No us Izzy Perez SPEECH THERAPIST LAB BLOOD BANK TEST ORDER [place] Final Result Performing Organization Address City/State/[facility] Co de Phone Number [facility] Department [place] [address] * eGFR (06/17/2024 2:53 PM CDT) eGFR 63 >=60 mL/min/1. 73 m2 Comment: Interpretive Data Reference Interval Normal >/= 90 mL/min/1.73m2 Mildly decreased* 60 - 89 mL/min/1.73m2 Mildly to moderately decreased 45 - 59 mL/min/1.73m2 Moderately to severely decreased 30 - 44 mL/min/1.73m2 Severely decreased 15 - 29 mL/min/1.73m2 Kidney Failure < 15 mL/min/1.73m2 *Relative to young adult level Estimated glomerular filtration rate is determined by the 2020 CKD-EPI equation recommended by the National Kid[employer] (A Unifying Approach to GFR Estimation: Recommendations of the NKF-ASK Task Force on Reassessing the Inclusion of Race in Diagnosing Kidney Disease, JASN 2020). The CKD-EPI equation should not be used for patients with unstable renal function and has not been validated in children and those over 70. Current interpretive data was last reviewed 2021. Blood 06/17/2024 2:53 PM CDT 06/17/2024 3:46 PM CDT us Donald Nicolas MD LAB BLOOD ORDERABLES Final Resul t Performing Organization Address [facility] Co de Phone Number [facility] Department [place] [address] * (ABNORMAL) Differential, auto (06/17/2024 2:53 PM CDT) Neutrophil abs 5.5 1.5 - 6.5 K/cumm Imm gran abs 0.1 0.0 - 0.1 K/cumm [facility] Lymphocyte abs 3.5(H) 0.8 - 3.3 K/cumm [facility] Monocyte abs 0.7 0.2 - 0.8 K/cumm [facility] Eosinophil abs 0.1 0.0 - 0.5 K/cumm [facility] Basophil abs 0.1 0.0 - 0.1 K/cumm [facility] Neutrophil pct 55.9 % [facility] Comment: Interpretive Data Percent cell count reference ranges are not reported, since discordance with absolute values may lead to misinterpretation of CBC data. Current Interpretive Data was last revised on 2017. Imm gran pct 0.5 % [facility] Comment: Interpretive Data Percent cell count reference ranges are not reported, since discordance with absolute values may lead to misinterpretation of CBC data. Current Interpretive Data was last revised on 2017. Lymphocyte pct 35.5 % [facility] Comment: Interpretive Data Percent cell count reference ranges are not reported, since discordance with absolute values may lead to misinterpretation of CBC data. Current Interpretive Data was last revised on 2017. Monocyte pct 6.8 % [facility] Comment: Interpretive Data Percent cell count reference ranges are not reported, since discordance with absolute values may lead to misinterpretation of CBC data. Current Interpretive Data was last revised on 2017. Eosinophil pct 0.6 % [facility] Comment: Interpretive Data Percent cell count reference ranges are not reported, since discordance with absolute values may lead to misinterpretation of CBC data. Current Interpretive Data was last revised on 2017. Basophil pct 0.7 % [facility] Comment: Interpretive Data Percent cell count reference ranges are not reported, since discordance with absolute values may lead to misinterpretation of CBC data. Current Interpretive Data was last revised on 2017. Blood 06/17/2024 2:53 PM CDT 06/17/2024 3:45 PM CDT us Izzy Perez NP LAB BLOOD ORDERABLES Zoya l [facility] Department [place] [address] * (ABNORMAL) CBC with auto differential (06/17/2024 2:53 PM CDT) WBC 9.9 3.8 - 9.9 K/cumm Hgb 12.5 11.9 - 15.5 g/dL [facility] Hct 37.6 35.6 - 45.5 % [facility] Plt 325 150 - 400 K/cumm [facility] MPV 9.7 9.1 - 12.3 fL [facility] RBC 4.12 3.90 - 5.20 M/cumm [facility] MCV 91.3 81.3 - 96.4 fL [facility] MCH 30.3 27.1 - 33.3 pg [facility] MCHC 33.2 32.3 - 35.7 g/dL [facility] RDW CV 15.1(H) 11.1 - 14.9 % [facility] RDW SD 50.6(H) 35.7 - 48.1 fL [facility] NRBC abs 0.00 0.00 - 0.01 K/cumm [facility] Blood 06/17/2024 2:53 PM CDT 06/17/2024 3:45 PM CDT us Izzy Perez SPEECH THERAPIST LAB BLOOD ORDERABLES Zoya l Result [facility] Department [place] [address] * Basic metabolic panel (06/17/2024 2:53 PM CDT) Sodium 139 135 - 145 mmol/L Potassium, pl 4.2 3.3 - 4.9 mmol/L [facility] Chloride 104 97 - 110 mmol/L [facility] CO2 27 22 - 32 mmol/L [facility] Anion gap 8 2 - 15 mmol/L [facility] BUN 13 6 - 25 mg/dL [facility] Creatinine 1.01 0.60 - 1.10 mg/dL [facility] Glucose 79 70 - 199 mg/dL [facility] Comment: Interpretive Data Fasting glucose >/= 126 mg/dl is diagnostic for diabetes. Fasting is defined as no caloric intake for at least 8 hours. Fasting glucose between 100 mg/dl to 125 mg/dl is diagnostic of prediabetes. In a patient with classic symptoms of hyperglycemia or hyperglycemic crisis, a random glucose >/= 200 mg/dl is diagnostic for diabetes. In the absence of unequivocal hyperglycemia, results should be confirmed by repeat testing. The classification and Diagnosis of Diabetes Diabetes Care 2021; 46: S19-S40. Current interpretive data was last revised 2022. 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 No complaints. Hx of appy, mendel, hysterectomy, , tubal ligation. TECHNIQUE: CT scan of the abdomen performed without and with intravenous and without oral contrast using helical scanning technique with dynamic intravenous contrast injection. Reconstructed coronal and sagittal MPR images reviewed. All images stored on PACS. Automated exposure control was used as a dose optimization technique for this examination. CONTRAST TYPE/DOSE: 100mL of IOVERSOL 350 MG IODINE/ML INTRAVENOUS SYRINGE injected via intravenous COMPARISON: CT dated October 10, 2018 FINDINGS: LOWER CHEST: No significant pulmonary abnormalities. No effusion. LIVER: Normal size. No identified cystic or solid masses. GALLBLADDER: No stones identified. No wall thickening or inflammatory changes. BILE DUCTS: No intrahepatic or extrahepatic ductal dilatation. SPLEEN: Normal size. No focal lesions. PANCREAS: No identified cystic or solid masses. No significant calcifications. No adjacent inflammation or peripancreatic fluid collections. Pancreatic duct not dilated. ADRENALS: Normal. KIDNEYS/URINARY TRACT: Again identified involving the interpolar region of the left kidney is a partially exophytic lesion containing large amount of macroscopic fat. Several surgical clips are seen. This is difficult to measure in size however measures approximately 6.7 x 3.9 cm (series 7, image 36; previously 6.5 x 3.8 cm remeasured). Allowing for difference in technique this is stable. This is compatible with the known history of angiomyolipoma.. No stones. No hydronephrosis or hydroureter. Symmetric enhancement. GI: No dilated bowel loops. No obvious wall thickening. No significant diverticular disease. PERITONEUM: No ascites or free air. RETROPERITONEUM: No adenopathy. VASCULATURE: No abdominal aortic aneurysm. MUSCULOSKELETAL: No acute findings. OTHER: No other significant abnormality. IMPRESSION: Left kidney interpolar region 6.7 x 3.9 cm angiomyolipoma, stable. THIS IS AN ELECTRONICALLY VERIFIED FINAL REPORT 05/23/2024 10:41 AM - Electronically signed by Gurdeep Molina M.D. 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 No complaints. Hx of appy, mendel, hysterectomy, , tubal ligation. TECHNIQUE: CT scan of the abdomen performed without and with intravenousand without oral contrast using helical scanning technique with dynamic intravenous contrast injection. Reconstructed coronal and sagittal MPRimages reviewed. All images stored on PACS. Automated exposure control was usedas a dose optimization technique for this examination. CONTRAST TYPE/DOSE: 100mL of IOVERSOL 350 MG IODINE/ML INTRAVENOUSSYRINGE injected via intravenous COMPARISON: CT dated October 10, 2018 FINDINGS: LOWER CHEST: No significant pulmonary abnormalities. Noeffusion. LIVER: Normal size. No identified cystic or solid masses. GALLBLADDER: No stones identified. No wall thickening or inflammatory changes. BILE DUCTS: No intrahepatic or extrahepatic ductal dilatation. SPLEEN: Normal size. No focal lesions. PANCREAS: No identified cystic or solid masses. No significant calcifications. No adjacent inflammation or peripancreatic fluidcollections. Pancreatic duct not dilated. ADRENALS: Normal. KIDNEYS/URINARY TRACT: Again identified involving the interpolar region ofthe left kidney is a partially exophytic lesion containing large amount of macroscopic fat. Several surgical clips are seen. This is difficult to measure in size however measures approximately 6.7 x 3.9 cm (series 7,image 36; previously 6.5 x 3.8 cm remeasured). Allowing for difference intechnique this is stable. This is compatible with the known history ofangiomyolipoma.. No stones. No hydronephrosis or hydroureter. Symmetric enhancement. GI: No dilated bowel loops. No obvious wall thickening. No significant diverticular disease. PERITONEUM: No ascites or free air. RETROPERITONEUM: No adenopathy. VASCULATURE: No abdominal aortic aneurysm. MUSCULOSKELETAL: No acute findings. OTHER: No other significant abnormality. IMPRESSION: Left kidney interpolar region 6.7 x 3.9 cm angiomyolipoma, stable. THIS IS AN ELECTRONICALLY VERIFIED FINAL REPORT 05/23/2024 10:41 AM - Electronically signed by Gurdeep Molina M.D. JA: OMAR Report ID: [id number] Reading Location: [id number] Donald Nicolas MD IMG CT PROCEDURES Final Result * POCT creatinine for contrast evaluation (05/19/2024 10:07 AM DOCTOR CHIROPRACTIC) Creatinine POC 0.80 0.60 - 1.10 mg/dL Comment:Testing performed by : [facility], [address] [place] [address]., [id number] Blood 05/19/2024 10:0 7 AM DOCTOR CHIROPRACTIC 05/19/2024 10:07 AM DOCTOR CHIROPRACTIC Laura KARIMI POINT OF CARE TEST ORDER [place] Final Result [facility] [facility] [place] [address] from Last 3 Months Insurance [facility] Advance Directives For more information, please contact: [phone] * Full Code (Latest Code Status on File) Date Activated Date Inactivated Comments 07/17/2024 6:14 PM 07/18/2024 4:16 PM * Full Code Date Activated Date Inactivated Comments 01/04/2024 3:31 PM 01/06/2024 5:03 PM * Full Code Date Activated Date Inactivated Comments 01/03/2024 10:28 AM 01/04/2024 5:05 AM Care Teams [employer] Relationship Specialty Start Date End Date Laura Choudhary PA PCP - General Physician Bus Girl 01/06/20
--- OUTSIDE RECORDS SUMMARY | 2024-08-11 09:38 | XMS_ITS | Clinical Summary ---
Author Organization [facility] Address [address] [place] [address] Care Team Providers Care Diet Technician Registered Name Role Phone Laura Choudahry Primary Care Provider + Allergies Active Allergy Reactions Criticality Noted Date [...] 01/20/2020 Tobacco abuse 01/20/2020 Marijuana abuse 01/20/2020 Encounters Date Type Department Care Team Description 07/30/2024 3:20 PM CDT Office Visit [facility] [address] [place] [address] [address] [place] [address] Donald Nicolas MD Renal angiomyolipoma 07/30/2024 3:00 PM CDT Lab [facility] Office Building 1 Lab [address] [place] [address] Renal angiomyolipoma 07/29/2024 Telephone [facility] [address] [place] [address] [address] [place] [address] Shilpa Barcenas RMA 07/24/2024 Results Follow-Up [facility] [address] [place] [address] [address] [place] [address] Donald Nicolas MD Surgical pathology 07/17/2024 12:50 PM CDT - 07/17/2024 8:00 PM CDT Surgery [facility] Operating Room 1 [place] [address] Donald Nicolas MD XI RADICAL NEPHRECTOMY - LAPAROSCOPIC ROBOTIC ASSISTED 07/17/2024 11:47 AM CDT Anesthesia Event [facility] Operating Room 1 [place] [address] Manuel Sullivan MD Richardson, Genea Michelle, NP 07/17/2024 10:24 AM CDT - 07/18/2024 12:16 PM CDT Hospital Encounter [address] [address] Donald Nicolas MD Kidney lesion Discharge Disposition: Discharge to home or self care 07/17/2024 Orders Only [facility] [address] [place] [address] [address] [place] [address] Donald Nicolas MD Renal angiomyolipoma (Primary Dx) 06/24/2024 Telephone [facility] [address] [place] [address] [address] [place] [address] Shilpa Barcenas, [facility] 06/22/2024 Telephone [facility] [address] [place] [address] [address] [place] [address] Shilpa Barcenas, A 06/17/2024 2:00 PM CDT Pre-Admission Testing [facility] Center for Preoperative Assessment and Planning [facility] ([facility]) [address] [place] [address] Preoperative testing (Primary Dx); Kidney lesion 05/19/2024 10:40 AM ROLL CONTOUR GRINDER Office Visit [facility] [address] [place] [address] [address] [place] [address] Donald Nicolas MD Renal angiomyolipoma (Primary Dx) 05/19/2024 9:56 AM ROLL CONTOUR GRINDER - 05/19/2024 11:59 PM ROLL CONTOUR GRINDER Hospital Encounter [facility] [place] [address] [place] [address] [place] [address] Renal angiomyolipoma Discharge Disposition: Discharge to home or self care from Last 3 Months Surgical History Surgery Date Site/Laterality Comments PA LIG/TRNSXJ FLP TUBE ABDL/ VAG APPR UNI/BI Tubal Ligation - (Added by TW Conv) PA DELIVERY ONLY Section - X2 1981 & 1983 (Added by TW Conv) HYSTERECTOMY EMBOLIZATION ORGAN ISCHEMIA OR INFARCTION 01/03/2024 N/A APPENDECTOMY TUBAL LIGATION CHOLECYSTECTOMY Medical History Medical History Date Comments CVS disease PONV (postoperative nausea and vomiting) CVS Family History Medical History Relation Name Comments Cancer Father Heart failure Mother Anesthesia problems Neg Hx Relation Name Status Comments Father Mother Social History Tobacco Use Types Packs/Day Years [...] on file Legal Sex Female 8:28 AM ROLL CONTOUR GRINDER Gender Identity Not on file Sexual Orientation Not on file Obstetrics History Last Filed Vital Signs Vital Sign Reading [...] 07/30/2024 3:07 PM CDT Plan of Treatment Health Maintenance Due Date Last Done Comments Breast Cancer Screening-Mammogram 1960 Colon Cancer Screening-Colonoscopy 1960 Depression Screening 1960 Hepatitis C Screening 1960 Hepatitis B Screening 1978 Regular Well Visit/Exam 18-64 1978 Pneumococcal vaccine <65 (1 of 2 - PCV) 06/24/1979 Zoster Vaccine (1 of 2) 06/24/1979 Lung Cancer Screening 2010 Covid-19 Vaccine (3 - Pfizer risk series) 11/30/2020 11/02/2020, 10/12/2020 Influenza Vaccine (Season Ended) 2024 DTaP/Tdap/Td Vaccine (2 - Td or Tdap) 02/09/2032 Medical Devices Implanted Type Area Peoplesoft Analyst Device Identifier Shelf Expiration Date Model / Serial / Lot [employer] Coil Embolization Coated Detachable Helical Concerto 1rad7aj Nylon Tt-5-5-[place]iverside - [id number] Implanted:Qty: 1 on 01/03/2024 at [facility] [employer] 08/21/2026 NV-4-8-BELLA X / / [id number] Med[employer] Inc Coil Embolization Coated Detachable Helical Concerto [id number] Nylon Pe-9-7-Riverside - [id number] Implanted:Qty: 1 on 01/03/2024 at [facility] [employer] 10/03/2026 NV-3-4-BELLA X / / [id number] [employer] Coil Embolization Coated Detachable Helical Concerto [id number] Nylon Tl-4-0-Riverside - [id number] Implanted:Qty: 1 on 01/03/2024 at [facility] [employer] 10/27/2026 NV-3-4-BELLA X / / [id number] [employer] Coil Embolization Coated Detachable Helical Concerto [id number] Nylon Vm-5-0-Riverside - [id number] Implanted:Qty: 1 on 01/03/2024 at [facility] [employer] 08/21/2026 NV-4-8-BELLA X / / [id number] [employer] Coil Embolization Coated Detachable Helical Concerto 7sal6kt Nylon Zm-2-9-Riverside - [id number] Implanted:Qty: 1 on 01/03/2024 at [facility] [employer] 07/14/2026 NV-3-4-BELLA X / / [id number] [employer] Inc Coil Embolization Coated Detachable Helical Concerto [id number] Nylon Np-8-8-Riverside - [id number] Implanted:Qty: 1 on 01/03/2024 at [facility] [employer] 05/29/2026 NV-3-4-BELLA X / / [id number] [employer] Angio-Seal Vip 6fr Closere Device [id number] - [id number] Implanted:Qty: 1 on 01/03/2024 at [facility] [employer] 06/13/2024 [id number] / / [id number] Procedures Procedure Name Priority Date/Time Associated Diagnosis [...] 07/17/2024 3: 55 PM CDT Kidney lesion PA AN PROCEDURE PLACEHOLDER Routine 07/17/2024 12:10 PM CDT PA AN PROCEDURE PLACEHOLDER Routine 07/17/2024 12:09 PM CDT PA AN PROCEDURE PLACEHOLDER Routine 07/17/2024 12:09 PM CDT PA AN ELECTIVE ENDOTRACHEAL AIRWAY Routine 07/17/2024 12:09 PM CDT XI NEPHRECTOMY - LAPAROSCOPIC ROBOTIC ASSISTED 07/17/2024 11:52 AM CDT Kidney lesion Case Notes 06/24-Case has approval from Dr. Prieto to run passed 1900 via email (EF) 06/22- updated date to [...] Read Routine (OP Routine) 05/19/2024 10:15 AM ROLL CONTOUR GRINDER Renal angiomyolipoma POCT CREATININE FOR CONTRAST EVALUATION Routine 05/19/2024 10:07 AM ROLL CONTOUR GRINDER from Last 3 Months Results * (ABNORMAL) [...] was last reviewed 2021. Testing performed by: [address] [address] Blood 07/30/2024 3:01 PM CDT 07/30/2024 4:15 PM CDT us Donald Nicolas MD LAB BLOOD ORDERABLES Final Resul t [facility] [address] [facility] Department [place] [address] * (ABNORMAL) CBC without differential (07/30/2024 3:01 PM CDT) WBC 11.10(H) 3.80 - 9.90 K/cumm Comment:Testing performed by : [address] [address] Hgb 10.9(L) 11.9 - 15.5 g/dL [facility] Comment:Testing performed by : [address] [address] Hct 34.9(L) 35.6 - 45.5 % [facility] Comment:Testing performed by : [address] [address] Plt 471(H) 150 - 400 K/cumm [facility] Comment:Testing performed by : [address] [address] MPV 9.6 9.1 - 12.3 fL [facility] Comment:Testing performed by : [address] [address] RBC 3.58(L) 3.90 - 5.20 M/cumm [facility] Comment:Testing performed by : [address] [address] MCV 97.5(H) 81.3 - 96.4 fL [facility] Comment:Testing performed by : [address] [address] MCH 30.4 27.1 - 33.3 pg [facility] Comment:Testing performed by : [address] [address] MCHC 31.2(L) 32.3 - 35.7 g/dL [facility] Comment:Testing performed by : [address] [address] RDW CV 14.7 11.1 - 14.9 % [facility] Comment:Testing performed by : [address] [address] RDW SD 53.4(H) 35.7 - 48.1 fL [facility] Comment:Testing performed by : [address] [address] NRBC abs 0.00 0.00 - 0.01 K/cumm [facility] Comment:Testing performed by : [address] [address] Blood 07/30/2024 3:01 PM CDT 07/30/2024 4:17 PM CDT [facility] 4:26 PM CDT S/p left radical nephrectomy us Donald Nicolas MD LAB BLOOD ORDERABLES Final Resul t [facility] [address] [facility] Department [place] [address] * Basic metabolic panel (07/30/2024 3:01 PM CDT) Sodium 136 135 - 145 mmol/L Comment:Testing performed by : [facility], [address] [place] [address], [place]., [address] Potassium, pl 4.2 3.3 - 4.9 mmol/L [facility] Comment:Testing performed by : [address], [place]., [address] Chloride 102 97 - 110 mmol/L [facility] Comment:Testing performed by : [address], [place]., [address] CO2 25 22 - 32 mmol/L [facility] Comment:Testing performed by : [address], [place]., [address] Anion gap 9 2 - 15 mmol/L [facility] Comment:Testing performed by : [address], [place]., [address] BUN 14 6 - 25 mg/dL [facility] Comment:Testing performed by : [address], [place]., [address] Creatinine 1.10 0.60 - 1.10 mg/dL [facility] Comment:Testing performed by : [address], [place]., [address] Glucose 126 70 - 199 mg/dL [facility] Comment: Interpretive Data Fasting glucose >/= 126 [...] was last revised 2022. Testing performed by: [address] [address] Calcium 9.1 8.5 - 10.3 mg/dL [facility] Comment:Testing performed by : [address], [place]., [address] Blood 07/30/2024 3:01 PM CDT 07/30/2024 4:15 PM CDT Narrative [facility] - 07/30/2024 4:30 PM CDT S/p left radical nephrectomy Donald Nicolas MD LAB BLOOD ORDERABLES Final Resul t [facility] [address] [facility] Department [place] [address] * (ABNORMAL) eGFR (07/17/2024 9:56 PM CDT) [...] of Race in Diagnosing Kidney Disease, JASN 202). The CKD-EPI equation should not be used for patients with unstable renal function and has not been validated in children and those over 70. Current interpretive data was last reviewed 2021. Blood 07/17/2024 9:56 PM CDT 07/17/2024 10:17 PM CDT Donald Nicolas MD LAB BLOOD ORDERABLES Final Resul t [facility] [place] [address] * (ABNORMAL) CBC without differential (07/17/2024 9:56 [...] MD LAB BLOOD ORDERABLES Final Resul t [facility] [place] [address] * Phosphorus (07/17/2024 9:56 PM CDT) Phosphorus, pl 3.4 2.3 - 4.5 mg/dL Blood 07/17/2024 9:56 PM CDT 07/17/2024 10:17 PM CDT Donald Nicolas MD LAB BLOOD ORDERABLES Final Resul t [facility] [place] [address] * Magnesium (07/17/2024 9:56 PM CDT) Magnesium 2.5 1.4 - 2.5 mg/dL Blood 07/17/2024 9:56 PM CDT 07/17/2024 10:17 PM CDT Donald Nicolas MD LAB BLOOD ORDERABLES Final Resul t Performing Organization Address [facility] Co de Phone Number [facility] Department [place] [address] * (ABNORMAL) Basic metabolic panel (07/17/2024 9:56 PM CDT) Sodium 140 135 - 145 mmol/L Potassium, [...] ORDERABLES Final Resul t Performing Organization Address [facility] Co de Phone Number [facility] Yaquelin [facility] Department [place] [address] * Surgical pathology (07/17/2024 3:55 PM CDT) Tissue (Kidney, total nephrectomy) 07/17/2024 3:55 PM CDT Comment:Specimen bi-valved o n surgical table Narrative PATHOLOGY [facility] - 07/24/2024 2:55 PM CDT EPIC results best viewed via link to PDF [facility] [place] [address] Note to Patients: This report may contain [...] Gender: F : 1960 (Age: 64) Address: [address] [place], [place] [id number] Hospital #: [id number] Taken:07/17/2024 Received:07/17/2024 Reported: 07/24/2024 Patient Type: [facility] Inpatient Service: Urology Location: [place] [address] Physician(s): Blaze Kim PA James Riley McGinnis, M.D. 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 Liliana Hinojosa M.D., PH.D. Report Electronically Reviewed and Signed Out By Liliana Hinojosa M.D., PH.D. 07/24/2024 14:55:34 Microscopic Description and [...] lymph nodes. No adrenal gland is present. Helminthology Teacher sections are submitted and labeled as follows: A1 Ureter, artery and vein margins, en face A2 Lesion to kidney parenchyma, upper pole A3 Lesion to kidney parenchyma, lower pole A4 Lesion to renal pelvic A5 Lesion to capsule A6 Lesion to perirenal adipose tissue A7 Putative necrotic area A8-A10 Additional sections of the lesion Jar 2. 07/20/2024 15:36 Gross Resident:Shay Jerez M.D. By this signature, I attest that the above diagnosis is based upon my personal examination of the slides(and/or other material). Addenda/Procedures The performance characteristics of some immunohistochemical stains, fluorescence in-situ hybridization tests and immunophenotyping by flow cytometry cited in this report (if any) were determined by the Surgical Pathology and Flow Cytometry Departments at [facility] as part of an ongoing quality control supervisor program and in compliance with federally mandated [...] Surgical Pathology and Flow Cytometry Departments of [facility]. It has not been cleared or approved by the U. S. Food and Drug Administration. IMAGES AND SCANNED DOCUMENTS, IF INCLUDED, ONLY VIEWABLE IN PDF VERSION OF REPORT us Donald Nicolas MD LAB PATHOLOGY ORDERABLES Final R esult PATHOLOGY [facility] 3rd Floor [place], [place] [phone] * PA AN PROCEDURE PLACEHOLDER (07/17/2024 12:10 PM CDT) Narrative Ashleigh Davis CRNA - 07/17/2024 12:10 PM CDT Ashleigh Davis CRNA 07/17/2024 1:16 PM Arterial Line Patient location: OR Indication: continuous blood pressure monitoring Staff: Supervising provider: Manuel Sullivan MD Placed by: CLINICAL TECHNOLOGIST: Ashleigh Davis CRNA Procedure prep: Prep solution: chlorhexadine/alcohol Prep: sterile gloves and provider hat/mask Arterial line: Catheter size: 20 gauge Catheter length: 1 and 3/4 inch Catheter type: angiocath Seldinger technique: yes Laterality: right Site: radial artery Line secured: tape and Tegaderm Results: good waveform Number of attempts: 1 Assessment: Events: patient tolerated procedure well with no complications Manuel Sullivan MD ANESTHESIA ORDERABLES Ed ited Result - Final * PA AN PROCEDURE PLACEHOLDER (07/17/2024 12:09 PM CDT) Narrative Ashleigh Davis CRNA - 07/17/2024 12:09 PM CDT Ashleigh Davis CRNA 07/17/2024 12:10 PM Peripheral IV Catheter Patient location: OR Staff: Supervising provider: Manuel Sullivan MD Placed by: CLINICAL TECHNOLOGIST: Ashleigh Davis CRNA Preprocedure prep: Prep solution: chlorhexadine PPE: gloves and provider hat/mask PIV line: Laterality: left Site: hand Catheter size: 18 g Technique: anatomical landmarks, direct visualization and palpatation Procedure details: occlusive dressing applied and good blood return Number of attempts: 1 Assessment: Events: patient tolerated procedure well with no complications Manuel Sullivan MD ANESTHESIA ORDERABLES Fi nal Result * PA AN ELECTIVE ENDOTRACHEAL AIRWAY, PA AN PROCEDURE PLACEHOLDER (07/17/2024 12:09 PM CDT) Narrative Ashleigh Davis CRNA - 07/17/2024 12:09 PM CDT Ashleigh Davis CRNA 07/17/2024 1:16 PM Airway Patient location: OR Urgency: elective Indications for airway management: anesthesia Difficult airway: no Staff: Supervising provider: Manuel Sullivan MD Placed by: CLINICAL TECHNOLOGIST: Ashleigh Davis CRNA Emergent airway documentation: Risks [...] 1 Ventilation between attempts: BVM us Manuel Charan Sullivan MD ANESTHESIA ORDERABLES Ed ited Result - Final * TYPE AND SCREEN 14 DAY (06/17/2024 2:53 PM CDT) ABO Rh A Negative Osito, indirect Negative [facility] Blood 06/17/2024 2:53 PM CDT 06/17/2024 4:15 PM CDT Narrative [facility] - 06/17/2024 5:26 PM CDT Is this test being ordered in advance for a procedure?->Yes Expected date of procedure:->07/01/24 Has the patient been transfused in the past 3 months?->No Has the patient been in the past 3 months?->No us Izzy Perez NP LAB BLOOD BANK TEST ORDER CLOVIS Final Result [facility] Department [place] [address] * eGFR (06/17/2024 2:53 PM CDT) eGFR [...] MD LAB BLOOD ORDERABLES Final Resul t [facility] [place] [address] * (ABNORMAL) Differential, auto (06/17/2024 2:53 PM CDT) Neutrophil abs 5.5 1.5 - 6.5 K/cumm Imm gran abs 0.1 0.0 - 0.1 K/cumm [facility] Lymphocyte abs 3.5(H) 0.8 - 3.3 K/cumm [facility] Monocyte abs 0.7 0.2 - 0.8 K/cumm [facility] Eosinophil abs 0.1 0.0 - 0.5 K/cumm [facility] Basophil abs 0.1 0.0 - 0.1 K/cumm [facility] Neutrophil pct 55.9 % [facility] Comment: [...] revised on 2017. Lymphocyte pct 35.5 % [facility] Comment: Interpretive Data Percent cell count reference [...] Izzy Perez NP LAB BLOOD ORDERABLES Zoya carrasco Result [facility] Department [place] [address] * (ABNORMAL) CBC with auto differential (06/17/2024 [...] 2:53 PM CDT 06/17/2024 3:45 PM CDT Izzy Perez NP LAB BLOOD ORDERABLES Zoya danilo Result [facility] Department [place] [address] * Basic metabolic panel (06/17/2024 2:53 PM CDT) [facility] Sodium 139 135 - 145 mmol/L Potassium, [...] 2022. Calcium 9.8 8.5 - 10.3 mg/dL [facility] Blood 06/17/2024 2:53 PM CDT 06/17/2024 3:46 PM CDT us Donald Nicolas MD LAB BLOOD ORDERABLES Final Resul t Performing Organization Address [facility]/ZIP Co de Phone Number [facility] [place] [address] * CT abdomen with and without contrast (05/19/2024 10:15 AM ROLL CONTOUR GRINDER) Anatomical Region Laterality Modality Body N/A Computed Tomogra phy 05/23/2024 10:3 7 AM ROLL CONTOUR GRINDER Narrative 05/23/2024 10:41 AM ROLL CONTOUR GRINDER EXAM DESCRIPTION: CT ABDOMEN W WO CONTRAST [...] Gurdeep Molina M.D. JA: OMAR Report ID: [id number] Reading Location: [id number] Procedure Note Gurdeep Molina MD - 05/23/2024 EXAM DESCRIPTION: CT ABDOMEN [...] Gurdeep Molina M.D. JA: OMAR Report ID: [id number] Reading Location: [id number] us Donald Nicolas MD IMG CT PROCEDURES Final Result * POCT creatinine for contrast evaluation (05/19/2024 10:07 AM ROLL CONTOUR GRINDER) Creatinine POC 0.80 0.60 - 1.10 mg/dL Comment:Testing performed by : [facility], [address] [place] [address]., [id number] Blood 05/19/2024 10:0 7 AM ROLL CONTOUR GRINDER 05/19/2024 10:07 AM ROLL CONTOUR GRINDER us Laura KARIMI POINT OF CARE TEST ORDER CLOVIS Final Result [place] [id number] [facility] Department [place] [address] from Last 3 Months Insurance [facility] Advance Directives For more information, please contact: [phone] * Full Code (Latest Code Status on File) Date Activated Date Inactivated Comments 07/17/2024 6:14 PM 07/18/2024 4:16 PM * Full Code Date Activated Date Inactivated Comments 01/04/2024 3:31 PM 01/06/2024 5:03 PM * Full Code Date Activated Date Inactivated Comments 01/03/2024 10:28 AM 01/04/2024 5:05 AM Care Teams Diet Technician Registered Relationship Specialty Start Date End Date Laura Choudhary PA PCP - General Physician Tentering Machine Off Bearer 01/06/20
--- OUTSIDE RECORDS SUMMARY | 2024-08-11 09:38 | XMS_ITS | Data Portability ---
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 Role Phone LILLY PETTY Primary Care Provider [phone] Assessment Encounter Date Assessment Date Assessment LastModified by Organization Details LastModified Time 06/10/2023 06/10/2023 patient will think about scheduling pap Not available 06/10/2023 15:19:45 12/03/2023 12/03/2023 mammogram scheduled for 12/2023 refills sent Not available 12/03/2023 11:00:25 Plan of Treatment Reminders Order Date Submit Date Provider Last Modified By Organization Details Last Modified Time Details Appointments ANY 30 2024 08:30A M TREV LAIRD Not available Not available Not available Lab pap, IG + reflex HPV 2023 024 [facility], [facility] [facility], [address], [place], [address], 12/25/2023 12:13:04 CBC w/ auto diff 2023 024 [facility], [address], [address], [place], [address], 12/04/2023 08:33:53 PT/PTT, plasma 2023 024 [facility], [address] [facility], [address], [place], [address], 12/04/2023 08:33:53 CMP, serum or plasma 2023 024 [facility], [address], [address], [place], [address], 12/04/2023 08:33:51 HbA1c (hemoglob in A1c), blood 2023 024 [facility], [address], [address], [place], [address], 12/04/2023 08:33:52 lipid panel, serum 2023 024 [facility], [address], [address], [place], [address], 12/04/2023 08:33:50 CMP, serum or plasma 2022 023 [facility], [address], [address], [place], [address], 12/19/2022 11:16:23 CBC w/ auto diff 2022 023 [facility], [address], [address], [place], [address], 12/19/2022 11:16:24 lipid panel, serum 2022 023 [facility], [address], [address], [place], [address], 12/19/2022 11:16:22 HbA1c (hemoglob in A1c), blood 2022 023 [facility], [address], [address], [place], [address], 12/19/2022 06:18:12 Referral None recorded. Procedures None recorded. Surgeries None recorded. Imaging LDCT, chest, for lung cancer screening [address] [facility] (Imaging), [address], [place], [address], 12/13/2023 14:22:07 XR, chest, 2 view [address] [facility] (Imaging), [address] [place] [address] [place] [address], [address], 12/03/2023 11:32:50 MAMMO, screening , digital, bilateral [address] (Imaging), [address], [place], [address], 09/03/2023 07:59:37 MAMMO, screening , bilateral [address] (Imaging), [address] [place] [address], [place], [address], 04/11/2023 15:07:22 Medication Orders amitripty line 100 mg tablet 2023 024 [id number], [address], [place], [place], [phone], 12/03/2023 09:11:30 atorvasta tin 40 mg tablet 2023 024 [facility], [address], [place], [place], [phone], 12/03/2023 09:11:31 amitripty line 100 mg tablet [address] [facility]28477, [address], [place], [place], [id number], 06/10/2023 15:17:42 ondansetr on 4 mg disintegr ating tablet 2023 024 [facility]36361, [address], [place], [place], [phone], 06/10/2023 15:09:58 atorvasta tin 40 mg tablet [address] [facility] #56128, [address], [place], [place], [phone], 06/10/2023 15:09:59 Patient TargetsNo targets recorded. Patient Instructions Encounter Date Encounter Id Patient Instructions Last Modified By Organization Details Last Modified Time 06/10/2023 [id number] A healthy lifestyle: care instructions Not available 06/10/2023 15:20:01 12/03/2023 [id number] rhythm strip, EKG* [facility] Not available 12/05/2023 14:36:02 Reason for Referral None Reported. Results Created Date Observation Date Name Description Value Unit Range Abnormal Flag Note LastModifiedBy Organization Detail LastModifiedTime 12/19/1912/19/2022 HEMOG LOBIN A1C hemoglobin A1C 5.6 % 4.8-5. 6 Predi abete s: 5.7 - 6.4 Diabe anthony: >6.4 Glyce alejandra contr ol for adult s with diabe anthony: <7.0 Not Available [facility] ([facility]) [address] [place], [address], 12/19/2022 06:18:12 12/19/19 23 12/19/2022 LIPID PANEL cholesterol, total 176 mg/dL 100-19 9 Not Available [facility] ([facility]) [address] [place], [address], 12/19/2022 11:16:22 12/19/19 23 12/19/2022 LIPID PANEL triglyceride s 117 mg/dL 0-149 Not Available [facility] ([facility]) [address] [place], [address], 12/19/2022 11:16:22 12/19/19 23 12/19/2022 LIPID PANEL HDL cholesterol 57 mg/dL >39 Not Available [facility] ([facility]) [address] [place], [address], 12/19/2022 11:16:22 12/19/19 23 12/19/2022 LIPID PANEL VLDL cholesterol jenae 21 mg/dL 5-40 Not Available [facility] ([facility]) [address] [facility], [place], [address], 12/19/2022 11:16:22 12/19/19 23 12/19/2022 LIPID PANEL LDL chol calc ([facility]) 98 mg/dL 0-99 Not Available [facility]) [address] [facility], [place], [address], 12/19/2022 11:16:22 12/19/19 23 12/19/2022 COMP. METAB OLIC PANEL (14) glucose 80 mg/dL 70-99 Not Available [facility] ([facility]) [address] [place], [address], 12/19/2022 11:16:23 12/19/19 23 12/19/2022 COMP. METAB OLIC PANEL (14) BUN 11 mg/dL 8-27 Not Available [facility] ([facility]) [address] [place], [address], 12/19/2022 11:16:23 12/19/19 23 12/19/2022 COMP. METAB OLIC PANEL (14) creatinine 0.80 mg/dL 0.57-1 .00 Not Available [facility] ([facility]) [address] [facility], [place], [address], 12/19/2022 11:16:23 12/19/19 23 12/19/2022 COMP. METAB OLIC PANEL (14) eGFR 83 mL/mi n/1.7 3 >59 Not Available [facility] ([facility]) [address] [place], [address], 12/19/2022 11:16:23 12/19/19 23 12/19/2022 COMP. METAB OLIC PANEL (14) BUN/creatini ne ratio 14 12-28 Not Available [facility] ([facility]) [address] [facility] [place], [address], 12/19/2022 11:16:23 12/19/19 23 12/19/2022 COMP. METAB OLIC PANEL (14) sodium 137 mmol/ L 134-14 4 Not Available [facility] ([facility]) [address] [facility] [place], [address], 12/19/2022 11:16:23 12/19/19 23 12/19/2022 COMP. METAB OLIC PANEL (14) potassium 4.4 mmol/ L 3.5-5. 2 Not Available [facility] ([facility]) [address] [facility] [place], [address], 12/19/2022 11:16:23 12/19/19 23 12/19/2022 COMP. METAB OLIC PANEL (14) chloride 100 mmol/ L 96-106 Not Available [facility] ([facility]) [address] [facility] [place], [address], 12/19/2022 11:16:23 12/19/19 23 12/19/2022 COMP. METAB OLIC PANEL (14) carbon dioxide, total 21 mmol/ L 20-29 Not Available [facility] ([facility]) [address] [facility] [place], [address], 12/19/2022 11:16:23 12/19/19 23 12/19/2022 COMP. METAB OLIC PANEL (14) calcium 9.5 mg/dL 8.7-10 .3 Not Available [facility] ([facility]) [address] [facility] [place], [address], 12/19/2022 11:16:23 12/19/19 23 12/19/2022 COMP. METAB OLIC PANEL (14) protein, total 7.0 g/dL 6.0-8. 5 Not Available [facility] ([facility]) [address] [facility] [place], [address], 12/19/2022 11:16:23 12/19/19 23 12/19/2022 COMP. METAB OLIC PANEL (14) albumin 4.5 g/dL 3.9-4. 9 Not Available [facility] ([facility]) [address] [facility] [place], [address], 12/19/2022 11:16:23 12/19/19 23 12/19/2022 COMP. METAB OLIC PANEL (14) globulin, total 2.5 g/dL 1.5-4. 5 Not Available [facility] ([facility]) [address] [facility] [place], [address], 12/19/2022 11:16:23 12/19/19 23 12/19/2022 COMP. METAB OLIC PANEL (14) A/G ratio 1.8 1.2-2. 2 Not Available [facility] ([facility]) [address] [facility] [place], [address], 12/19/2022 11:16:23 12/19/19 23 12/19/2022 COMP. METAB OLIC PANEL (14) bilirubin, total 0.3 mg/dL 0.0-1. 2 Not Available [facility] ([facility]) [address] [place], [address], 12/19/2022 11:16:23 12/19/19 23 12/19/2022 COMP. METAB OLIC PANEL (14) alkaline phosphatase 101 IU/L 44-121 Not Available [facility] ([facility]) [address] [facility] [place], [address], 12/19/2022 11:16:23 12/19/19 23 12/19/2022 COMP. METAB OLIC PANEL (14) AST (SGOT) 24 IU/L 0-40 Not Available [facility] ([facility]) [address] [place], [address], 12/19/2022 11:16:23 12/19/19 23 12/19/2022 COMP. METAB OLIC PANEL (14) ALT (SGPT) 32 IU/L 0-32 Not Available [facility] ([facility]) [address] [facility], [place], [address], 12/19/2022 11:16:23 12/19/19 23 12/19/2022 CBC WITH DIFFE RENTI AL/PL ATELE T WBC 11.2 x10e3 /uL 3.4-10 .8 above high normal Not Available [facility] ([facility]) [address] [place], [address], 12/19/2022 11:16:24 12/19/19 23 12/19/2022 CBC WITH DIFFE RENTI AL/PL ATELE T RBC 3.93 x10e6 /uL 3.77-5 .28 Not Available [facility] ([facility]) [address] [place], [address], 12/19/2022 11:16:24 12/19/19 23 12/19/2022 CBC WITH DIFFE RENTI AL/PL ATELE T hemoglobin 12.3 g/dL 11.1-1 5.9 Not Available [facility] ([facility]) [address] [place], [address], 12/19/2022 11:16:24 12/19/19 23 12/19/2022 CBC WITH DIFFE RENTI AL/PL ATELE T hematocrit 36.1 % 34.0-4 6.6 Not Available [facility] ([facility]) [address] [place], [address], 12/19/2022 11:16:24 12/19/19 23 12/19/2022 CBC WITH DIFFE RENTI AL/PL ATELE T MCV 92 fL 79-97 Not Available [facility] ([facility]) [address] [place], [address], 12/19/2022 11:16:24 12/19/19 23 12/19/2022 CBC WITH DIFFE RENTI AL/PL ATELE T MCH 31.3 pg 26.6-3 3.0 Not Available [facility] ([facility]) [address] [facility], [place], [address], 12/19/2022 11:16:24 12/19/19 23 12/19/2022 CBC WITH DIFFE RENTI AL/PL ATELE T MCHC 34.1 g/dL 31.5-3 5.7 Not Available [facility] ([facility]) [address] [facility], [place], [address], 12/19/2022 11:16:24 12/19/19 23 12/19/2022 CBC WITH DIFFE RENTI AL/PL ATELE T RDW 14.4 % 11.7-1 5.4 Not Available [facility] ([facility]) [address] [facility], [place], [address], 12/19/2022 11:16:24 12/19/19 23 12/19/2022 CBC WITH DIFFE RENTI AL/PL ATELE T platelets 339 x10e3 /uL 150-45 0 Not Available [facility] ([facility]) [address] [facility], [place], [address], 12/19/2022 11:16:24 12/19/19 23 12/19/2022 CBC WITH DIFFE RENTI AL/PL ATELE T neutrophils 61 % notest ab. Not Available [facility] ([facility]) [address] [facility], [place], [address], 12/19/2022 11:16:24 12/19/19 23 12/19/2022 CBC WITH DIFFE RENTI AL/PL ATELE T lymphs 30 % notest ab. Not Available [facility] ([facility]) [address] [place], [address], 12/19/2022 11:16:24 12/19/19 23 12/19/2022 CBC WITH DIFFE RENTI AL/PL ATELE T monocytes 7 % notest ab. Not Available [facility] ([facility]) [address] [facility], [place], [address], 12/19/2022 11:16:24 12/19/19 23 12/19/2022 CBC WITH DIFFE RENTI AL/PL ATELE T eos 1 % notest ab. Not Available [facility] ([facility]) [address] [facility], [place], [address], 12/19/2022 11:16:24 12/19/19 23 12/19/2022 CBC WITH DIFFE RENTI AL/PL ATELE T basos 1 % notest ab. Not Available [facility] ([facility]) [address] [facility], [place], [address], 12/19/2022 11:16:24 12/19/19 23 12/19/2022 CBC WITH DIFFE RENTI AL/PL ATELE T neutrophils (absolute) 6.9 x10e3 /uL 1.4-7. 0 Not Available [facility] ([facility]) [address] [facility], [place], [address], 12/19/2022 11:16:24 12/19/19 23 12/19/2022 CBC WITH DIFFE RENTI AL/PL ATELE T lymphs (absolute) 3.4 x10e3 /uL 0.7-3. 1 above high normal Not Available [facility] ([facility]) [address] [facility], [place], [address], 12/19/2022 11:16:24 12/19/1912/19/2022 CBC WITH DIFFE RENTI AL/PL ATELE T monocytes(ab solute) 0.7 x10e3 /uL 0.1-0. 9 Not Available [facility] ([facility]) [address] [facility], [place], [address], 12/19/2022 11:16:24 12/19/19 23 12/19/2022 CBC WITH DIFFE RENTI AL/PL ATELE T eos (absolute) 0.1 x10e3 /uL 0.0-0. 4 Not Available [facility] ([facility]) [address] [facility], [place], [address], 12/19/2022 11:16:24 12/19/19 23 12/19/2022 CBC WITH DIFFE RENTI AL/PL ATELE T baso (absolute) 0.1 x10e3 /uL 0.0-0. 2 Not Available [facility] ([facility]) [address] [facility], [place], [address], 12/19/2022 11:16:24 12/19/19 23 12/19/2022 CBC WITH DIFFE RENTI AL/PL ATELE T immature granulocytes 0 % notest ab. Not Available [facility] ([facility]) [address] [facility], [place], [address], 12/19/2022 11:16:24 12/19/19 23 12/19/2022 CBC WITH DIFFE RENTI AL/PL ATELE T immature grans (abs) 0.0 x10e3 /uL 0.0-0. 1 Not Available [facility] ([facility]) [address] [facility], [place], [address], 12/19/2022 11:16:24 12/03/19 24 12/04/2023 LIPID PANEL cholesterol, total 310 mg/dL 100-19 9 above high normal Not Available [facility] ([facility]) [address] [place], [address], 12/04/2023 08:33:50 12/03/19 24 12/04/2023 LIPID PANEL triglyceride s 364 mg/dL 0-149 above high normal Not Available [facility] ([facility]) [address] [place], [address], 12/04/2023 08:33:50 12/03/19 24 12/04/2023 LIPID PANEL HDL cholesterol 39 mg/dL >39 below low normal Not Available [facility] ([facility]) [address] [place], [address], 12/04/2023 08:33:50 12/03/19 24 12/04/2023 LIPID PANEL VLDL cholesterol jenae 74 mg/dL 5-40 above high normal Not Available [facility] ([facility]) [address] [facility], [place], [address], 12/04/2023 08:33:50 12/03/19 24 12/04/2023 LIPID PANEL LDL chol calc ([facility]) 197 mg/dL 0-99 above high normal Not Available [facility] ([facility]) [address] [facility], [place], [address], 12/04/2023 08:33:50 12/03/19 24 12/04/2023 LIPID PANEL LDL calc comment: COMMEN T Consi jagruti evalu ating for Famil ial Hyper mendel stero lemia (FH), if clini jason indic ated. Not Available [facility] ([facility]) [address] [place], [address], 12/04/2023 08:33:50 12/03/19 24 12/04/2023 COMP. METAB OLIC PANEL (14) glucose 82 mg/dL 70-99 Not Available [facility] ([facility]) [address] [place], [address], 12/04/2023 08:33:51 12/03/19 24 12/04/2023 COMP. METAB OLIC PANEL (14) BUN 9 mg/dL 8-27 Not Available [facility] ([facility]) [address] [place], [address], 12/04/2023 08:33:51 12/03/19 24 12/04/2023 COMP. METAB OLIC PANEL (14) creatinine 0.77 mg/dL 0.57-1 .00 Not Available [facility] ([facility]) [address], [place], [address], 12/04/2023 08:33:51 12/03/19 24 12/04/2023 COMP. METAB OLIC PANEL (14) eGFR 87 mL/mi n/1.7 3 >59 Not Available [facility] ([facility]) [address] [place], [address], 12/04/2023 08:33:51 12/03/19 24 12/04/2023 COMP. METAB OLIC PANEL (14) BUN/creatini ne ratio 12 12-28 Not Available [facility] ([facility]) [address] [facility] [place], [address], 12/04/2023 08:33:51 12/03/19 24 12/04/2023 COMP. METAB OLIC PANEL (14) sodium 140 mmol/ L 134-14 4 Not Available [facility] ([facility]) [address] [place], [address], 12/04/2023 08:33:51 12/03/19 24 12/04/2023 COMP. METAB OLIC PANEL (14) potassium 4.2 mmol/ L 3.5-5. 2 Not Available [facility] ([facility]) [address] [facility] [place], [address], 12/04/2023 08:33:51 12/03/19 24 12/04/2023 COMP. METAB OLIC PANEL (14) chloride 104 mmol/ L 96-106 Not Available [facility] ([email or web address]) [address] [facility] [place], [address], 12/04/2023 08:33:51 12/03/19 24 12/04/2023 COMP. METAB OLIC PANEL (14) carbon dioxide, total 21 mmol/ L 20-29 Not Available [facility] ([email or web address]) [address] [facility] [place], [address], 12/04/2023 08:33:51 12/03/19 24 12/04/2023 COMP. METAB OLIC PANEL (14) calcium 9.5 mg/dL 8.7-10 .3 Not Available [facility] ([facility]) [address], [place], [address], 12/04/2023 08:33:51 12/03/19 24 12/04/2023 COMP. METAB OLIC PANEL (14) protein, total 6.8 g/dL 6.0-8. 5 Not Available [facility] ([facility]) [address], [place], [address], 12/04/2023 08:33:51 12/03/19 24 12/04/2023 COMP. METAB OLIC PANEL (14) albumin 4.3 g/dL 3.9-4. 9 Not Available [facility] ([facility]) [address], [place], [address], 12/04/2023 08:33:51 12/03/19 24 12/04/2023 COMP. METAB OLIC PANEL (14) globulin, total 2.5 g/dL 1.5-4. 5 Not Available [facility] ([facility]) [address], [place], [address], 12/04/2023 08:33:51 12/03/19 24 12/04/2023 COMP. METAB OLIC PANEL (14) bilirubin, total <0.2 mg/dL 0.0-1. 2 Not Available [facility] ([facility]) [address] [place], [address], 12/04/2023 08:33:51 12/03/19 24 12/04/2023 COMP. METAB OLIC PANEL (14) alkaline phosphatase 110 IU/L 44-121 Not Available [facility] ([facility]) [address], [place], [address], 12/04/2023 08:33:51 12/03/19 24 12/04/2023 COMP. METAB OLIC PANEL (14) AST (SGOT) 18 IU/L 0-40 Not Available [facility] ([facility]) [address] [facility], [place], [address], 12/04/2023 08:33:51 12/03/19 24 12/04/2023 COMP. METAB OLIC PANEL (14) ALT (SGPT) 14 IU/L 0-32 Not Available [facility] ([facility]) [address] [facility], [place], [address], 12/04/2023 08:33:51 12/03/19 24 12/04/2023 HEMOG LOBIN A1C hemoglobin A1C 5.6 % 4.8-5. 6 Predi abete s: 5.7 - 6.4 Diabe anthony: >6.4 Glyce alejandra contr ol for adult s with diabe anthony: <7.0 Not Available [facility] ([facility]) [address] [facility], [place], [address], 12/04/2023 08:33:52 12/03/19 24 12/04/2023 CBC WITH DIFFE RENTI AL/PL ATELE T WBC 11.1 x10e3 /uL 3.4-10 .8 above high normal Not Available [facility] ([facility]) [address] [facility], [place], [address], 12/04/2023 08:33:53 12/03/19 24 12/04/2023 CBC WITH DIFFE RENTI AL/PL ATELE T RBC 4.51 x10e6 /uL 3.77-5 .28 Not Available [facility] ([facility]) [address] [place], [address], 12/04/2023 08:33:53 12/03/19 24 12/04/2023 CBC WITH DIFFE RENTI AL/PL ATELE T hemoglobin 13.5 g/dL 11.1-1 5.9 Not Available [facility] ([facility]) [address] [facility], [place], [address], 12/04/2023 08:33:53 12/03/19 24 12/04/2023 CBC WITH DIFFE RENTI AL/PL ATELE T hematocrit 43.1 % 34.0-4 6.6 Not Available [facility] ([facility]) [address] [facility], [place], [address], 12/04/2023 08:33:53 12/03/19 24 12/04/2023 CBC WITH DIFFE RENTI AL/PL ATELE T MCV 96 fL 79-97 Not Available [facility] ([facility]) [address] [facility], [place], [address], 12/04/2023 08:33:53 12/03/19 24 12/04/2023 CBC WITH DIFFE RENTI AL/PL ATELE T MCH 29.9 pg 26.6-3 3.0 Not Available [facility] ([facility]) [address] [facility], [place], [address], 12/04/2023 08:33:53 12/03/19 24 12/04/2023 CBC WITH DIFFE RENTI AL/PL ATELE T MCHC 31.3 g/dL 31.5-3 5.7 below low normal Not Available [facility] ([facility]) [address] [facility], [place], [address], 12/04/2023 08:33:53 12/03/19 24 12/04/2023 CBC WITH DIFFE RENTI AL/PL ATELE T RDW 13.9 % 11.7-1 5.4 Not Available [facility] ([facility]) [address] [facility], [place], [address], 12/04/2023 08:33:53 12/03/19 24 12/04/2023 CBC WITH DIFFE RENTI AL/PL ATELE T platelets 312 x10e3 /uL 150-45 0 Not Available [facility] ([facility]) [address] [facility], [place], [address], 12/04/2023 08:33:53 12/03/19 24 12/04/2023 CBC WITH DIFFE RENTI AL/PL ATELE T neutrophils 61 % notest ab. Not Available [facility] ([facility]) [address] [facility], [place], [address], 12/04/2023 08:33:53 12/03/19 24 12/04/2023 CBC WITH DIFFE RENTI AL/PL ATELE T lymphs 30 % notest ab. Not Available [facility] ([facility]) [address] [facility], [place], [address], 12/04/2023 08:33:53 12/03/19 24 12/04/2023 CBC WITH DIFFE RENTI AL/PL ATELE T monocytes 6 % notest ab. Not Available [facility] ([facility]) [address] [facility], [place], [address], 12/04/2023 08:33:53 12/03/19 24 12/04/2023 CBC WITH DIFFE RENTI AL/PL ATELE T eos 1 % notest ab. Not Available [facility] ([facility]) [address] [facility], [place], [address], 12/04/2023 08:33:53 12/03/19 24 12/04/2023 CBC WITH DIFFE RENTI AL/PL ATELE T basos 1 % notest ab. Not Available [facility] ([facility]) [address] [facility], [place], [address], 12/04/2023 08:33:53 12/03/19 24 12/04/2023 CBC WITH DIFFE RENTI AL/PL ATELE T neutrophils (absolute) 6.9 x10e3 /uL 1.4-7. 0 Not Available [facility] ([facility]) [address] [facility], [place], [address], 12/04/2023 08:33:53 12/03/19 24 12/04/2023 CBC WITH DIFFE RENTI AL/PL ATELE T lymphs (absolute) 3.3 x10e3 /uL 0.7-3. 1 above high normal Not Available [facility] ([facility]) [address] [facility], [place], [address], 12/04/2023 08:33:53 12/03/19 24 12/04/2023 CBC WITH DIFFE RENTI AL/PL ATELE T monocytes(ab solute) 0.6 x10e3 /uL 0.1-0. 9 Not Available [facility] ([facility]) [address] [facility], [place], [address], 12/04/2023 08:33:53 12/03/19 24 12/04/2023 CBC WITH DIFFE RENTI AL/PL ATELE T eos (absolute) 0.1 x10e3 /uL 0.0-0. 4 Not Available [facility] ([facility]) [address] [facility], [place], [address], 12/04/2023 08:33:53 12/03/19 24 12/04/2023 CBC WITH DIFFE RENTI AL/PL ATELE T baso (absolute) 0.1 x10e3 /uL 0.0-0. 2 Not Available [facility] ([facility]) [address] [facility], [place], [address], 12/04/2023 08:33:53 12/03/19 24 12/04/2023 CBC WITH DIFFE RENTI AL/PL ATELE T immature granulocytes 1 % notest ab. Not Available [facility] ([facility]) [address] [facility], [place], [address], 12/04/2023 08:33:53 12/03/19 24 12/04/2023 CBC WITH DIFFE RENTI AL/PL ATELE T immature grans (abs) 0.1 x10e3 /uL 0.0-0. 1 Not Available [facility] ([facility]) [address] [facility], [place], [address], 12/04/2023 08:33:53 12/03/19 24 12/04/2023 PT AND PTT INR 1.0 0.9-1. 2 Refer ence inter adele is for non-a ntico agula kevin patie nts. Sugge sted INR thera peuti c range for Vitam in K antag onist thera py: Stand lópez Dose (mode rate inten sity thera peuti c range ): 2.0 - 3.0 Highe r inten sity thera peuti c range 2.5 - 3.5 Not Available [facility] ([facility]) [address] [facility], [place], [address], 12/04/2023 08:33:53 12/03/19 24 12/04/2023 PT AND PTT prothrombin time 10.8 sec 9.1-12 .0 Not Available [facility] ([facility]) [address] [facility], [place], [address], 12/04/2023 08:33:53 12/03/19 24 12/04/2023 PT AND PTT APTT 32 sec 24-33 This test has not been valid ated for monit oring unfra ction ated hepar in thera py. aPTT- based thera peuti c range s for unfra ction ated hepar in thera py have not been estab navarro urena For gener al guide lines on Hepar in monit oring , refer to the [facility] Direc tory of Servi rod. Not Available [facility] ([facility]) [address] [facility], [place], [address], 12/04/2023 08:33:53 12/19/1912/19/2023 IGP,A PTIMA HPV,A GE GDLN age gdln acog testing 30-65 Not Available [facility] ([facility]) [address] [place], [address], 12/25/2023 12:13:04 12/19/19 24 12/20/2023 IGP, APTIM A HPV, RFX 16/18 ,45 HPV aptima Negati ve negati ve This nucle ic acid ampli ficat ion test detec ts fourt een high- risk HPV types (16,1 8,31, 33,35 ,39,4 5,51, 52,56 ,58,5 9,66, 68) witho ut diffe renti ation . Not Available [facility] ([facility]) [address] [facility], [place], [address], 12/25/2023 12:13:05 12/19/1912/25/2023 IGP, APTIM A HPV, RFX 16/18 ,45 diagnosis: Shan gupta NEGAT JENNIFFER FOR INTRA EPITH ELIAL LESKING N OR JASON KENDRICK . Not Available [facility] ([facility]) [address] [facility], [place], [address], 12/25/2023 12:13:05 12/19/1912/25/2023 IGP, APTIM A HPV, RFX 16/18 ,45 specimen adequacy: Shan gupta Satis facto ry for evalu ation . No endoc ervic al compo nent is ident ified . Not Available [facility] ([facility]) [address] [facility], [place], [address], 12/25/2023 12:13:05 12/19/19 24 12/25/2023 IGP, APTIM A HPV, RFX 16/18 ,45 clinician provided ICD10: Shan gupta Z12.4 Not Available [facility] ([facility]) [address] [facility], [place], [address], 12/25/2023 12:13:05 12/19/19 24 12/25/2023 IGP, APTIM A HPV, RFX 16/18 ,45 performed by: Shan funes, Octavio gupta (ASCP ) Not Available [facility] ([facility]) [address] [facility], [place], [address], 12/25/2023 12:13:05 12/19/1912/25/2023 IGP, APTIM A HPV, RFX 16/18 ,45 . . Not Available [facility] ([facility]) [address] [facility], [place], [address], 12/25/2023 12:13:05 12/19/19 24 12/25/2023 IGP, APTIM A HPV, RFX 16/18 ,45 note: Commen t The Pap smear is a scree chaya test desig barak to aid in the detec tion of kenneth ligna nt and malig nant condi tions of the uteri ne cervi x. It is not a diagn ostic proce dure and shoul d not be used as the sole means of detec ting cervi jenae cance r. Both false -posi tive and false -nega tive repor ts do occur . Not Available [facility] ([facility]) [address] [facility], [place], [address], 12/25/2023 12:13:05 12/19/1912/25/2023 IGP, APTIM A HPV, RFX 16/18 ,45 test methodology: Commen t This liqui d based ThinP rep(R ) pap test was scree barak with the use of an image guide rodrick vega. Not Available [facility] ([facility]) [address] [facility], [place], [address], 12/25/2023 12:13:05 12/19/19 24 12/25/2023 IGP, APTIM A HPV, RFX 16/18 ,45 HPV genotype reflex Commen t Crite ava not met, HPV Genot ype not perfo rmed. Not Available [facility] ([facility]) [address] [facility], [place], [address], 12/25/2023 12:13:05 11/20/19 24 11/20/2023 MRI, shoul jagruti, w/o contr ast No observ ation record ed. [address], [place], [address], 11/20/2023 10:51:33 12/03/19 24 12/03/2023 XR, chest , 2 view No observ ation record ed. [address], [place], [address], 12/03/2023 13:28:50 12/03/19 24 12/03/2023 XR, chest , 2 view No observ ation record ed. [address] [address], [place], [address], 12/05/2023 14:42:45 12/03/19 24 12/03/2023 rhyth m strip , EKG* No observ ation record ed. [address] [address], [place], [address], 12/05/2023 14:43:44 12/04/19 24 12/03/2023 rhyth m strip , EKG* No observ ation record ed. [address] [address], [place], [address], 12/05/2023 16:34:28 12/05/19 24 12/03/2023 rhyth m strip , EKG* No observ ation record ed. [address] [facility], [place], [address], 12/05/2023 15:59:33 12/13/19 24 12/13/2023 LDCT, chest , for lung cance r scree chaya No observ ation record ed. [address] [address], [place], [address], 12/16/2023 10:20:31 12/13/19 24 12/13/2023 LDCT, chest , for lung cance r scree chaya No observ ation record ed. [address] [address], [place], [address], 12/16/2023 10:20:32 12/26/1912/26/2023 MAMMO , scree chaya, digit al, bilat eral No observ ation record ed. [address], [place], [address], 12/26/2023 10:28:51 12/26/1912/26/2023 MAMMO , scree chaya, digit al, bilat eral No observ ation record ed. [address], [place], [address], 12/26/2023 15:02:14 01/09/2001/09/2024 PET-C T, skull base to mid-t high scan No observ ation record ed. [address], [place], [address], 01/14/2024 11:43:16 01/09/2001/09/2024 PET-C T, skull base to mid-t high scan No observ ation record ed. [address], [place], [address], 01/14/2024 11:43:17 Result Notes None recorded. Problems Name Problem SNOMED Code Status Onset Date Resolution Date Notes Provider Name and Address Organization Details Recorded Time Cyclical vomiting syndrome 58826169 Active 2018 RAHUL GREENWOOD NP [address] [place], [address] [facility] 9 15:23:40 Polyp of sigmoid colon 952568439 Active 2019 Next colonosco py November 2023. tubulovil lous with high grade dysplasia . Repeat colonosco py in March 2020. RAHUL GREENWOOD NP [address] [place], [address] [facility] 16:54:49 Marijuana user 691461413 Active 2019 TREV LAIRD Attn: Accountkatiana g,[address] [facility], [place], [address], [place] [facility] 0 14:55:22 Tobacco user 510861369 Active 2020 RAHUL KRYSTYNA, ACCESS SERVICE REPRESENTATIVE [address], [place], [address], [place] [facility] 1 10:22:23 Internal hemorrhoi ds 79031442 Active 2020 RAHUL GREENWOOD, ACCESS SERVICE REPRESENTATIVE [address], [place], [address], [place] [facility] 1 16:54:55 Smoker 67913425 Active 2022 TREV LAIRD Attn: Accountkatiana g,[address] [facility], [place], [address], [place] [facility] 3 09:50:14 Hyperlipi demia 43484678 Active 2022 TREV LAIRD Attn: Accountkatiana g,[address] [facility], [place], [address], [place] [facility] 3 09:50:25 Cervical cancer Papanicol aou smear screening declined 688231523948 107 Active 2023 TREV LAIRD Attn: Accountkatiana g,[address] [facility], [place], [address], [place] [facility] 4 15:20:29 Overweigh t 337147948 Active 2023 TREV LAIRD Attn: Accountkatiana g,[address] [facility], [place], [address], [place] [facility] 4 15:20:30 Problem Notes None recorded. Procedures Surgical History Date Name Laterality Status Provider Name and Address Organization Details Recorded Time 01/16/20 19 EXCISION, NECK MASS (SURG) completed TREV LAIRD Attn: Accounting,[address] [facility], [place], [address], [place] [facility] 01/21/2019 13:53:47 01/16/20 19 LARYNGOSCOPY, DIRECT, WITH BIOPSY (SURG) completed TREV LAIRD Attn: Accounting,[address], [place], [address], [facility] 01/27/2019 12:54:04 01/16/20 19 LARYNGOSCOPY, DIRECT, WITH BIOPSY (SURG) completed Jhonny Montoya MD [address], [place], [address], [facility] 01/28/2019 11:23:38 Total hysterectomy completed Georgie Ferreira MA [facility] 10/21/2018 14:26:05 section completed Georgie Ferreira MA [facility] 10/21/2018 14:26:30 section completed Georgie Ferreira MA [facility] 10/21/2018 14:26:37 arm repair completed Georgie Ferreira MA [facility] 10/21/2018 14:26:57 Imaging Results Imaging Date Name Status LastModified by Organiz ation Details LastModified Time 11/20/2023 MRI, shoulder, w/o contrast completed [address] [place] [address], [address], 11/20/2023 10:51:33 12/03/2023 XR, chest, 2 view completed [address] [place] [address], [address], 12/03/2023 13:28:50 12/03/2023 XR, chest, 2 view completed [address] [place] [address], [address], 12/05/2023 14:42:45 12/03/2023 rhythm strip, EKG* completed [address] [place] [address], [address], 12/05/2023 14:43:44 12/03/2023 rhythm strip, EKG* completed [address] [place] [address], [address], 12/05/2023 16:34:28 12/03/2023 rhythm strip, EKG* completed [address] [facility], [place], [address], 12/05/2023 15:59:33 12/13/2023 LDCT, chest, for lung cancer screening completed [address] [facility], [place], [address], 12/16/2023 10:20:31 12/13/2023 LDCT, chest, for lung cancer screening completed [address] [facility], [place], [address], 12/16/2023 10:20:32 12/26/2023 MAMMO, screening, digital, bilateral completed [address] [facility], [place], [address], 12/26/2023 10:28:51 12/26/2023 MAMMO, screening, digital, bilateral completed [address] [facility], [place], [address], 12/26/2023 15:02:14 01/09/2024 PET-CT, skull base to mid-thigh scan completed [address] [address], [place], [address], 01/14/2024 11:43:16 01/09/2024 PET-CT, skull base to mid-thigh scan completed [address], [address], 01/14/2024 11:43:17 Procedure Notes None recorded. Medical Equipment None Reported. Allergies Allergen ID Allergen Name Allergen Category Reaction Reaction Severity Criticality Documentation Date Start Date Code Code System Note Provider Name and Address Organization Details Recorded Time 605939 Substance with sulfonami de structure and antibacte rial mechanism of action (substanc e) medicatio n vomiting Not available low 10/21/2018 [address] [id number] SNOMED WALLY [place], [place] [facility] 17:46:06 Medications Name Sig Start Date Stop Date Status Note LastModified by Organization Details LastModified Time Prescriptio n - New 10/04 completed Not Available Not Available Not Available Miralax 17 gram/dose oral powder In a pitcher, mix entire bottle of Miralax in one 64 ounce bottle of yellow or green Gatorade. Beginning at 5:00 PM the evening before the colonosco py, drink 1 8-ounce glass every 15 minutes until completed . Drink 4 glasses of water after finishing this mixture 05/11 completed Not Available Not Available Not Available atorvastati n 40 mg tablet take one tablet EVERY night for cholester ol 2024 active Not Available Not Available Not Avai lable prednisone 10 mg tablet 12/02 completed Not Available Not Available Not Available hydrocodone 5 mg-acetamin ophen 325 mg tablet Take 1 tablet every 6 hours by oral route. 02/02 completed Not Available Not Available Not Available aspirin 81 mg tablet,batsheva yed release Take 1 tablet every day by oral route. 2021 active Not Available Not Available Not Avai lable amoxicillin 500 mg tablet 05/11 completed Not Available Not Available Not Available famotidine 20 mg tablet 10/21 completed Not Available Not Available Not Available amitriptyli ne 25 mg tablet Take 1 tablet 3 times a day by oral route at bedtime for 30 days. 05/18 completed Not Available Not Available Not Available cephalexin 500 mg capsule 02/02 completed Not Available Not Available Not Available simvastatin 20 mg tablet Take 1 tablet every day by oral route at bedtime for 90 days. 12/18 completed Not Available Not Available Not Available Promethegan 25 mg rectal suppository 10/21 completed Not Available Not Available Not Available ibuprofen 600 mg tablet 12/18 completed Not Available Not Available Not Available ondansetron 4 mg disintegrat ing tablet Place 2 tablets twice a day by transling ual route for 5 days. active Not Available Not Available No t Available amitriptyli ne 100 mg tablet Take 1 tablet every day by oral route for 90 days. active Not Available Not Available No t Available naproxen 500 mg tablet Take 1 tablet twice a day by oral route for 30 days. 12/18 completed Not Available Not Available Not Available Dulcolax (bisacodyl) 5 mg tablet,batsheva yed release At 2:00 PM the day before the colonosco py, take all 4 tablets of Dulcolax by mouth at one time with 8 ounces of water 05/11 completed Not Available Not Available Not Available oxycodone 5 mg tablet active Not Available Not Available No t Available GaviLyte-G 236 gram-22.74 gram-6.74 gram-5.86 gram oral solution At 5:00 PM the day prior to the procedure , drink 8 ounces every 15 minutes until gone 10/04 completed Not Available Not Available Not Available Suprep Bowel Prep Kit 17.5 gram-3.13 gram-1.6 gram oral solution Take 354 mL by oral route for 1 day. 10/04 completed Not Available Not Available Not Available Vitals Date Recorded Body height Body mass index (BMI) Body weight Heart rate Oxygen saturation Oxygen saturation in Arterial blood by Pulse oximetry Systolic blood pressure Diastolic blood pressure Provider Name and Address Organization Details Last Updated DateTime 3 160.02 cm 27.1 kg/m2 09826.6 3 g 78 /min 99 % 99 % 110 mm[Hg] 74 mm[Hg] WALLY [place] [facility] 3 14:01:04 Date Recorded Body height Body mass index (BMI) Body weight Heart rate Oxygen saturation Oxygen saturation in Arterial blood by Pulse oximetry Systolic blood pressure Diastolic blood pressure Provider Name and Address Organization Details Last Updated DateTime 4 160.02 cm 27.1 kg/m2 16395.3 3 g 92 /min 99 % 99 % 112 mm[Hg] 73 mm[Hg] WALLY [place] [facility] 4 14:56:46 Date Recorded Body height Body mass index (BMI) Body weight Heart rate Oxygen saturation Oxygen saturation in Arterial blood by Pulse oximetry Systolic blood pressure Diastolic blood pressure Provider Name and Address Organization Details Last Updated DateTime 4 160.02 cm 27.2 kg/m2 76792.7 3 g 105 /min 99 % 99 % 134 mm[Hg] 80 mm[Hg] WALLY [place] [facility] 4 08:48:54 Date Recorded Body height Body mass index (BMI) Body weight Oxygen saturation Oxygen saturation in Arterial blood by Pulse oximetry Systolic blood pressure Diastolic blood pressure Provider Name and Address Organization Details Last Updated DateTime 4 160.02 cm 27 kg/m2 00156.4 4 g 99 % 99 % 134 mm[Hg] 77 mm[Hg] Amalia Baldwin MA [facility] 4 08:24:49 Date Recorded Heart rate Provider Name an d Address Organization Details Last Updated DateTime 12/19/2023 100 /min Bernadine LAIRD Attn: Accounting,[address] [facility], [place], [address], [facility] 12/20/2023 06:41:27 Date Recorded Body height Body mass index (BMI) Body weight Heart rate Oxygen saturation Oxygen saturation in Arterial blood by Pulse oximetry Systolic blood pressure Diastolic blood pressure Provider Name and Address Organization Details Last Updated DateTime 5 160.02 cm 25.5 kg/m2 47476 g 106 /min 98 % 98 % 103 mm[Hg] 64 mm[Hg] Amalia Baldwin MA [facility] 5 09:22:22 Social History Question Answer Notes LastModified by Organizat ion Details LastModified Time Tobacco Smoking Status Current Every Day Smoker 1/2 ppd Amalia Baldwin MA null, [facility] 05/11/2021 10:49:09 What Is Your Level Of Caffeine Consumption? None Information not available 01/01/2020 What Was The Date Of Your Most Recent Tobacco Screening? 12/03/2023 Information not available 12/03/2023 How Many Children Do You Have? 2 Information not available 01/01/2020 How Much Tobacco Do You Smoke? 0.5 PPD Information not available 10/21/2018 General Stress Level Low Information not available 01/01/2020 On What Date Was Tobacco Cessation Counseling Provided? 12/03/2023 Information not available 12/03/2023 How Many Years Have You Smoked Tobacco? 40 Information not available 10/21/2018 Sex: Female Functional Status Question Answer Note LastModified by Organizat ion Details LastModified Time What is your level of alcohol consumption? None Information not available 01/01/2020 Do you or have you ever used smokeless tobacco? Never used smokeless tobacco Information not available 01/01/2020 Do you or have you ever used e-cigarettes or vape? Never used electronic cigarettes Information not available 01/01/2020 Mental Status None recorded. Family History Relationship Description Onset Age of this Age Resolved Age Notes LastModified by Organization Details LastModified Time Mother Congestive heart failure 63 [email or web address] Not available 2018 14:25:04 Sister Diabetes mellitus [email or web address] Not available 2018 14:25:10 Father Malignant neoplasm of skin [email or web address] Not available 2018 14:25:30 Medical History Condition Response Coronary Artery Disease N High Blood Pressure N Atrial Fibrillation N Kidney or Bladder Problems Y Thyroid Problems N GI Problems Y Depression N COPD N Blood Clots N Skin Problems N Anemia Y Heart Attack (AZ) N Anxiety Disorder N Diabetes N Muscle, Joint, or Bone Problems N Seizures/Epilepsy N Acid Reflux (GERD) N Cancer N Stroke N Asthma N Allergies N High Cholesterol N Hepatitis N Liver Disease N Headaches N Heart Failure N Osteoporosis N Gynecological History Statement/Question Response Date of Last Pap Smear Date of Last Mammogram Date of LMP Age at First Child 21 Obstetrics History GPAL:G 2 P 2 0 0 2 Type Value Multiple Births 0 Full Term 2 Induced 0 Spontaneous 0 Premature 0 Living 2 Ectopics 0 Total 2 Immunizations Vaccine Type Date Status Note Provider Nam e and Address Organization Details Recorded Time COVID-19, mRNA, LNP-S, PF, 30 mcg/0.3 mL dose 10/12/2020 completed Not Available [facility] 5 09:15:13 COVID-19, mRNA, LNP-S, PF, 30 mcg/0.3 mL dose 11/02/2020 completed Not Available [facility] 5 09:15:13 Tdap 02/08/2022 completed TREV LAIRD Attn: Accounting,[address] [place], [address], [facility] 02/08/2022 16:52:40 Past Encounters Encounter ID Performer Location Encounter Start Date Encounter Closed Date Diagnosis/Indication Diagnosis SNOMED-CT Code Diagnosis ICD10 Code Diagnosis Note [id number] TREV LAIRD [facility] [address] [place] [address] 10/21/2018 14:04:10 10/22/2018 12:15:37 Cyclical vomiting syndrome 75052290 G43.A0 Patient has episodes of vomiting every 3-4 months x 14 years. She has no may when they start. She has to go to ER from [facility]. She has bloody stools for a few days after episodes. - EGD/ colonoscop y- checking labs- referral to GI [id number] Vince Davalos DO [facility] [address] [place] [address] 01/06/2019 14:12:38 01/13/2019 15:52:17 Cyclical vomiting syndrome 97426174 R11.15 EGD to assess for esophageal changes Screening for malignant neoplasm of colon 685260355 Z12.11 Localized swelling, mass and lump, neck 735679422 R22.1 To see ENT [id number] [facility] [address] [place] [address] 01/07/2019 11:16:42 01/08/2019 08:13:01 Mass of neck 082909982 R22.1 [id number] Jhonny Montoya MD [facility] [address] [place] [address] 01/19/2019 10:08:50 01/19/2019 13:15:26 Mass of neck 948360514 R22.1 [id number] TREV LAIRD [facility] [address] [place] [address] 01/19/2019 12:30:43 01/20/2019 15:31:53 Cyclical vomiting syndrome 28246213 G43.A0 Patient has episodes of vomiting every 3-4 months x 14 years. Discussed recent studies showing some efficacy in use of amitriptyl ine to reduce episodes of vomiting. Patient is willing to try. Side effects of medication discussed. No cardiac history. Patient not taking other medication s- encouraged to go back and get EGD/ colonoscop y- continue seeing GI Infection of skin 949793 000 L08.9 patient went to ER for neck pain after procedure to remove lymph node. ER prescribed Keflex - patient encouraged to finish medication - f/u after completion of abx [id number] Jhnony Montoya MD [facility] ts [address] [place] [address] 01/26/2019 11:15:01 01/27/2019 15:34:46 Mass of neck 970141069 R22.1 [id number] TREV LAIRD [facility] [address] [place] [address] 02/02/2019 10:54:55 02/03/2019 14:21:24 Cyclical vomiting syndrome 11508056 G43.A0 Patient started amitripyli ne last month. She is taking 25 mg and is to titrate up to 50 mg this week. target dose is 50 mg -100 mg/night. Last episode was in September. Side effects of medication discussed. No cardiac history. Patient not taking other medication s.- encouraged to go back and get EGD/ colonoscop y- continue seeing GI [id number] TREV LAIRD [facility] [address] [place] [address] 05/18/2019 11:58:53 05/19/2019 10:45:53 Cyclical vomiting syndrome 57899066 G43.A0 Patient started amitripyli ne last month. She is taking 75. target dose is 50 mg -100 mg/night. Has had two episode since starting medication adn they did not require her to go to hospital. They were also shorter in length. Will try 10 mg as studies show this is a good dose for most people. If patietn does not like it with decrease to 75 mg. She has gaine 10 lbs since staring medication and is at a healthy weight. increase to 100 mg qhs Screening mammography 24 687996 Z12.31 HAS NOT HAD MAMMOGRAM. patient agrees to have this done. printed and given to patient. she is to call and make an appointmen t, Screening for malignant neoplasm of cervix 551295440 Z12.4 patient refuses pap at this time [id number] TREV LAIRD [facility] [address] [place] [address] 01/01/2020 15:30:27 01/02/2020 19:36:02 Cyclical vomiting syndrome 05904339 G43.A0 Patient doing well on amitripyli ne 100 and has one episode of vomiting since April. No medication side effets. She has gaine 10 lbs since staring medication and is at a healthy weight. - continue 100 mg qhs- continue eating healthy diets- encouraged to stop marijuana Syncope 344063167 R55 Patient has episodes of passing out. This has happened a couple of times in the last few months. Before she passes out she gets heated and sweaty and has about 30 seconds to one minute before she hits the ground. She does not know how long she passes out for. Episodes occur randomly and are not affected by position.d enies CP, Palpitatio ns, sob, numbness, tingling - cardiology - ER if happens again- labs- stay hydrated [id number] TREV LAIRD [facility] [address] [place] [address] 01/26/2020 10:49:12 01/27/2020 08:45:21 Syncope 179881784 R55 cardiologi is ordering echo and heart monitor. She is wondering if current amitriptyl ine can cause heart issues as she read it online. She denies any new symptoms and states medication is causing less episodes of cyclical vomiting. We discussed risk v benefits of medication . She has had less syncopal episodes, hospitaliz ations with medication . The severity of vomiting has also decreased allowing her to maintain hydration. This lowers risk of kidney damage, falls, dehydratio n, among other things. She denies CP, Palpitatio ns, sob, numbness, tingling. Will wait for workup from cardiology . In his note he states he does not feel like syncopal episodes have anything to do with her heart. He also urged her to stop smoking marijuana which she states she will not. - cardiology - ER if happens again- labs- stay hydrated [id number] RAHUL GREENWOOD NP [facility] [address] [facility] [place] [address] 10/04/2020 09:44:40 10/04/2020 15:23:50 Adenomatous polyp of colon 200612857 D12.6 colonoscop y on 03/31/2019 with sigmoid tubulovill ous adenoma with high grade dysplasia. Cyclical v omiting syndrome 86615165 R11.15 On amitriptyl ineNo vomiting x 6 months Tobacco user 135092742 Z 72.0 Strongly encouraged to discontinu e smoking Marijuana user 777651346 F12.90 daily use [id number] TREV LAIRD [facility] [address] [place] [address] 05/11/2021 10:29:53 05/12/2021 10:11:44 Screening mammography 53342244 Z12.31 HAS NOT HAD MAMMOGRAM. patient agrees to have this done. printed and given to patient. she is to call and make an appointmen t, Cyclical v omiting syndrome 81484438 R11.15 Patient doing well on amitripyli ne 100 and has one episode in last year. No medication side effets. She has gaine 10 lbs since staring medication and is at a healthy weight. - continue 100 mg qhs- continue eating healthy diets- encouraged to stop marijuana Cholesterol screening 27 0607779 Z13.220 Overweight 060384758 E66 .3 [id number] TREV LAIRD [facility] [address] [place] [address] 02/08/2022 09:42:01 02/12/2022 11:42:52 Screening mammography 88284090 Z12.31 Has not had MAMMOGRAM. patient agrees to have this done. printed and given to patient. she is to call and make an appointmen t, Administra tion of diphtheria, pertussis, and tetanus vaccine 109225078 Z23 agreed to tdap. Hyperlipidemia 23549046 E78.5 she stopped taking statindisc ussed last labsdiscus sed healthy diet HIV screening 614098653 Z11.4 Overweight 629383217 E66 .3 - advised healthy diet Cyclical v omiting syndrome 81880815 R11.15 Patient doing well on amitripyli ne 100 and not had any ER visits. medication side effects:dr shalini elizalde. - continue 100 mg qhs- continue eating healthy diets- encouraged to stop marijuana [id number] TREV LAIRD [facility] [address] [place] [address] 11/13/2022 16:29:53 11/14/2022 11:26:42 Cyclical vomiting syndrome 60491921 R11.15 Patient doing well on amitripyli ne 100 and not had any ER visits. medication side effects:dr shalini elizalde. needs refills - continue 100 mg qhs- continue eating healthy diets- encouraged to stop marijuana Pain of ri ght shoulder joint [id number] 0410422 M25.511 patient with R shoulder pain after falling directly on shoulder. pain with movement making exam difficult. affecting QOL, ADL and unable to work until improved. Due to effect on QOL I am sending to ortho as injection may help. Will request xray from ER. start NSAID. Patient understand s Cv risk with NSAID. Hyperlipidemia 24249745 E78.5 she stopped taking statindisc ussed last labsdiscus sed healthy diet Smoker 33720324 F17.200 advised quitting. [id number] TREV LAIRD [facility] [address] [place] [address] 12/18/2022 13:52:03 12/18/2022 15:23:32 Pain of right shoulder joint [id number] 1964906 M25.511 following orthoappoi ntment 12/19/22 Hyperlipidemia 68178097 E78.5 taking statin nightlydis cussed last labsdiscus sed healthy diet Smoker 79986843 F17.200 advised quitting. Adult [facility] th examination 883831280 Z00.00 - labs- mammogram reminder- advised quitting smoking- due for pap, states she will go to obgyn Screening mammography 24 356402 Z12.31 Has not had MAMMOGRAM. patient agrees to have this done. printed and given to patient. she is to call and make an appointmen t, [id number] TREV LAIRD [facility] [address] [facility] [place] [address] 06/10/2023 14:45:15 06/10/2023 15:21:38 Cyclical vomiting syndrome 12734264 R11.15 Patient doing well on amitripyli ne 100 and not had any ER visits. medication side effects:dr shalini elizalde. needs refills - continue 100 mg qhs- continue eating healthy diets- encouraged to stop marijuana Hyperlipidemia 30289330 E78.5 she is taking statindisc ussed last labsdiscus sed healthy diet Smoker 19874079 F17.200 advised quitting. Screening mammography 24 074120 Z12.31 Has not had MAMMOGRAM. patient agrees to have this done. printed and given to patient. she is to call and make an appointmen t Overweight 835534874 E66 .3 - advised healthy diet Cervical c ancer Papanicolaou smear screening declined 6870974029 43708 Z53.20 patient will consider thisadvisraulito d to bring with her for comfort [id number] Alex Rodriguez MD [facility] [address] [facility] [place] [address] 12/03/2023 08:33:12 12/03/2023 11:03:46 Pre-surgery evaluation 734036527 Z01.818 - vitals wnl- labs- xray- EKG- if abnormal will need cardiology clearance- denies cp, sob, palpitatio ns or known apnea- she is advised to quit smoking to improve outcomes and healing Cyclical v omiting syndrome 05819080 R11.15 Patient doing well on amitripyli ne 100 and not had any ER visits. medication side effects:dr shalini elizalde. needs refills - continue 100 mg qhs- continue eating healthy diets- encouraged to stop marijuana Hyperlipidemia 20072389 E78.5 she is taking statindisc ussed last labsdiscus sed healthy diet Smoker 46353464 F17.200 35 pack smoking hxadvised quitting. smoking age approx 89 ppd for 30 years1/2 pack for 10 years [id number] Alex Rodriguez MD [facility] [address] [facility] [place] [address] 12/19/2023 08:13:38 12/19/2023 09:14:38 Screening for malignant neoplasm of cervix 766874415 Z12.4 Patient with no previous hx of mammogram or pap.Pap obtainedCB E performedB reast education providedma mmogram scheduled december 2023 [id number] Alex Rodriguez MD [facility] [address] [place] [address] 08/11/2024 09:14:08 08/11/2024 09:53:53 Preoperative state 65934750 Z01.818 - vitals wnl- labs- xray- EKG- if abnormal will need cardiology clearance- denies cp, sob, palpitatio ns or known apnea- she is advised to quit smoking to improve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
--- OUTSIDE RECORDS SUMMARY | 2024-08-11 09:38 | XMS_ITS | Encounter Summary ---
Author Organization [facility] Address [address] [place] [address] Phone Care Team Providers Care Summer Analyst Name Role Phone Laura Choudhary Primary Care Provider + Encounter Details Date Type Department Care Team (Late st Contact Info) Description 07/24/2024 Results Follow-Up [facility] [address] [place] [address] Donald Nicolas MD [address] [place], [place] [id number] Surgical pathology Social History Tobacco Use Types Packs/Day Years Used Date Smoking Tobacco: Every Day Cigarettes 0.5 52.4 Started: 1973 Smokeless Tobacco: Never Alcohol Use Standard Drinks/Week Comments Not Currently [...] on file Legal Sex Female 8:28 [employer] Gender Identity Not on file Sexual Orientation Not on file documented as of this encounter Plan of Treatment Not on file documented as of this encounter Visit Diagnoses Not on filedocumented in this encounter Care Teams Summer Analyst Relationship Specialty Start Date End Date Laura Choudhary PA PCP - General Physician [employer] Data [employer] 01/06/20 documented as of this encounter
== END 2024-08-11 09:19 | disposition home or self-care (01) ==
PROVIDERS: PCP Physician Assistant; Visit Provider Physician Assistant
DX: Z01.818 Encounter for other preprocedural examination (principal)
CPT/HCPCS: 71046; 93005

== ENCOUNTER 2024-10-06 07:59 | Outpatient (CLI) | payer OTHER, SELFPAY ==
[2024-10-06 08:42] LABS: Cholesterol 196 mg/dL (0-200); HDL Direct 57 mg/dL; Triglycerides 155 mg/dL (<150)
== END 2024-10-06 08:00 | disposition home or self-care (01) ==
LOC: ANHLAB 08:03
PROVIDERS: PCP Physician Assistant; Visit Provider Internal Medicine Interventional Cardiology
DX: E78.49 Other hyperlipidemia (principal)
CPT/HCPCS: 36415; 80061

== ENCOUNTER 2024-10-19 01:53 | Day surgery (SDC) | payer OTHER, SELFPAY ==
[2024-10-12 11:30] VITALS: BMI 26.1
--- NOTE | 2024-10-12 11:32 | PC.NURSE ---
Report to the Outpatient Waiting Room, entrance under the green pavilion located off [facility], at time _0600_ on date _[id number]_. Planned Procedure Time: _0730_.? Time changes happen often and if your time is changed the preop area will call you the afternoon before. - You and your visitor will be asked to self-screen and do not enter if you have any COVID symptoms. Please call surgeon if you need to reschedule. - A mask is optional within the hospital at this time. Patients may have clear liquids (water, carbonated beverages, clear teas, apple juice) until 3 hours prior to surgery with a maximum of 20 ounces. - No food from midnight until time of surgery and no smoking, or chewing tobacco (or any form of nicotine). No chewing gum, candy or mints. Take only the following medications with a SIP of water on the morning of surgery: ____None DO NOT STOP ANY OF YOUR OTHER PRESCRIPTION MEDICATIONS PRIOR TO SURGERY EXCEPT THE FOLLOWING Hold all vitamins and supplements for 3 days per anesthesiologist. Medications to discontinue per physician Date to take last dose Please no make-up, nail palauan, hairspray, perfume, deodorant, or body powder the day of surgery.? No jewelry (including any body piercings) or valuables the day of surgery, leave them at home.? Please take a shower or bath the night before, or the morning of, surgery with an antibacterial soap.? Wear comfortable, loose fitting clothing. - Jewelry must be removed prior to entering the operating room.? Rings and piercings that are not removed may be cut off. - The hospital will not accept responsibility for valuables.? - Please leave all valuables, including medications, at home the day of surgery. If you are going home after surgery, a licensed entry driver operator must drive you home.? - NO public transportation without another adult if you receive anesthesia. - We recommend that an adult stay with you for 24 hours following discharge. - We also recommend that you do not drive, make important decision, drink alcoholic beverages, or take any drugs that were not prescribed by your health care provider for at least 24 hours after your discharge time. Follow any additional instructions given to you from your surgeon. Telephone instructions given to __Franca___and asked if any additional questions and then verbalized understanding. Patient advised to call surgeon office or pre surgery nurse liaison [phone] if any additional questions.
[2024-10-19] VITALS (10 sets, daily range): BP systolic 106–150; BP diastolic 46–73; PULSE 56–84; RESP 14–18; TEMP 36.2–36.7; O2SAT 95–100
--- NOTE | 2024-10-19 06:38 | P.HP_ITS ---
H&P: HPI History of Present Illness Date/Time: 10/19/24 06:38 Chief Complaint: Patient is shoulder pain right. She has a rotator cuff tear. She has failed conservative treatment. She has pain and weakness would like to consider surgical reconstruction. 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 Social History Social History Smoking packs per day: 1 Smoking cigarettes per day: 20.0 Years smoked: 50 Smoking pack-years: 50.00 Smoking status: Current every day smoker Tobacco type: cigarettes Second hand tobacco smoke exposure: Yes Smoking end date: 10/06/24 Alcohol intake: never Substance use: current Substance use type: marijuana Do You Feel Safe in your Home?: Yes Lack of Transportation: No Lack of Food: Never True Current Housing: I Have Housing Concerned About Future Housing: No Difficulty Paying Gas/Electric Bills: No Difficulty Paying for Meds: No Currently Unemployed: No Education: High School Diploma/GED Difficulty w/ Childcare or Family Care: No Living arrangements: with family Occupation/Education: occupation 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 Neurologically she appears to be intact. She has good motion with only mild pain in the cervical spine. She is very weak and has difficulty getting arm above the horizontal. Eyes: General: appearance normal, both eyes and all related structures Neck: Neck: supple Resp: Effort & Inspection: normal respiratory effort Cardio: Rate: regular rate Rhythm: regular rhythm Radiology Reports: Comments: [place], [place] [id number] Magnetic Resonance Report Signed Patient: Franca Smiley MRI of the right shoulder Technique: Axial proton-density fat-sat images, coronal proton density fat-sat and T2 fat-sat images, and sagittal T1-weighted and T2 fat-sat images were acquired. Clinical History: Injury Findings: There is moderate AC joint degenerative change, with subacromial spur present. Coracoclavicular, coracoacromial, and coracohumeral ligaments are intact. There is full-thickness tear involving essentially the entire supraspinatus tendon. Fluid-filled gap measures approximately 2.6 x 2.5 cm in extent. Infraspinatus tendon is intact, with moderate to severe tendinosis. Subscapularis tendon is intact, with mild to moderate tendinosis. Tendon of the long head of the biceps is intact. No labral tear evident. Inferior glenohumeral ligament is intact. There is no significant degenerative change of the glenohumeral joint. There is minimal glenohumeral joint effusion. There is minimal fluid in the subacromial/subdeltoid bursa. No muscle atrophy or edema evident. Impression: Complete, full-thickness tear of the supraspinatus tendon, as detailed above. Background rotator cuff tendinosis, as above. Moderate AC joint degenerative change. Reviewed, dictated and finalized at location M. Electronically signed by Alex Mcnulty Shoulder X-Ray 08/06/24 Shoulder MRI 11/20/23 Orthopedics Result Report 08/06/24 Assessment and Plan Assessment and plan (1) Rotator cuff tear, right: Code(s): M75.101 - Unspecified rotator cuff tear or rupture of right shoulder, not specified as traumatic Status: Acute Assessment and Plan: Patient has rotator cuff tear right. She has failed conservative treatment like to consider surgical intervention. She also has arthritis of the acromioclavicular joint. She has tried medicine therapy cortisone exercise time is to the point where nothing really is helping her. I discussed surgical intervention with her in detail. I discussed the risks, benefits, limitations, and alternatives. She understands and agrees would like to proceed. Will proceed per her request with arthroscopy right shoulder open distal clavicle excision rotator cuff debridement repair proceed as indicated. (2) Arthritis of right acromioclavicular joint: Code(s): M19.011 - Primary osteoarthritis, right shoulder Status: Chronic
--- NOTE | 2024-10-19 06:41 | WPDHPUPDATE1 ---
History and Physical Update Update Date/Time: 10/19/24 06:41 History and Physical has been reviewed, including an updated exam of the patient. There are NO changes in the patient's condition. Risks, benefits, and alternatives have been discussed and questions answered. Patient agrees to proceed with procedure.
[2024-10-19] MEDS: ACETAMINOPHEN 500 MG TABLET 1000 MG PO (07:00)
[2024-10-19] MEDS: KETOROLAC 15 MG/ML VIAL (*BKC) IV PUSH (07:00)
--- NOTE | 2024-10-19 07:05 | P.PNAN_ITS ---
Anes - Initial Pre Proc Eval Procedure: Operation Date: 10/19/24 07:30 Proposed Procedures p Right Shoulder Arthroscopy, Open Rotator Cuff Repair, Distal Clavicle Excision, Proceed as Indicated - Bhavesh Yeh MD Date/Time: 10/19/24 07:05 Surgeon: Bhavesh Yeh MD Pre Op Diagnosis: right rot. cuff tear, ac arthritis Patient Data Age: 64 Gender: F Height: 1.6 m Weight: 66.8 kg Allergies Allergy/AdvReac Type Severity Reaction Status Date / Time Sulfa (Sulfonamide Allergy Unknown Unknown Verified 10/12/24 11:19 Antibiotics) Home Medications ?Medication ?Instructions ?Recorded ?Confirmed ?Type amitriptyline 100 mg tablet 100 mg PO QHS 11/21/22 10/12/24 History atorvastatin 40 mg tablet 40 mg PO HS 12/25/23 10/12/24 History Patient hx anesthesia problems: none Family hx anesthesia problems: none Results Review: All pre-operative results and documents have been reviewed as part of the pre- operative evaluation. [facility] Past Medical History Medical History (Updated 10/19/24 @ 07:05 by Jhonny Arredondo MD) Smoker Adhesive capsulitis of right shoulder Arthritis of right acromioclavicular joint Surgical History Surgical History History of nephrectomy, left History of History of surgery on arm History of tonsillectomy H/O: hysterectomy Family History Family History Mother Heart disease CHF (congestive heart failure) Father Cancer Sibling No problems noted. Social History Social History Smoking packs per day: 1 Smoking cigarettes per day: 20.0 Years smoked: 50 Smoking pack-years: 50.00 Smoking status: Current every day smoker Tobacco type: cigarettes Second hand tobacco smoke exposure: Yes Smoking end date: 10/06/24 Alcohol intake: never Substance use: current Substance use type: marijuana Do You Feel Safe in your Home?: Yes Lack of Transportation: No Lack of Food: Never True Current Housing: I Have Housing Concerned About Future Housing: No Difficulty Paying Gas/Electric Bills: No Difficulty Paying for Meds: No Currently Unemployed: No Education: High School Diploma/GED Difficulty w/ Childcare or Family Care: No Living arrangements: with family Occupation/Education: occupation 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[employer] Gender identity (if verbalized by the patient): Female Spiritual care concerns: No Anes - Eval Final PreProcedure Day of Procedure 10/19/24 07:05 Patient weight: normal Heart: regular rate and rhythm Lungs: clear to auscultation Airway: Mallampati scale class II and special considerations poor dentition Neurological: alert and oriented Last oral intake: >/= 8 hours ASA classification: III Emergent: no Anesthetic plan: proceed Anesthesia type and monitoring: general ETT and standard monitoring Results Review: All pre-operative results and documents have been reviewed as part of the pre- operative evaluation. Informed Consent: The patient's anesthetic plan and its attendant risks and benefits were discussed with the patient/family/POA. Questions were solicited and answers provided to the satisfaction of the patient/family/POA.
[2024-10-19] MEDS: ceFAZolin 2 GM in SODIUM CHLORIDE 0.9% IV 50 ML 100 ML IVPB (08:02)
[2024-10-19] MEDS: LIDO 1%/EPINEPHRINE 1:100,000 20 ML VIAL 30 ML INFILTRATE (08:35)
--- NOTE | 2024-10-19 08:43 | W.PM.PROC2 ---
Procedure Note - Detailed Date of Procedure 10/19/24 Pre-op Diagnosis Rotator Cuff Tear RIGHT Acromioclavicular arthritis Post-op Diagnosis Same Procedure Performed Rotator cuff repair Distal clavicle excision Surgeon Bhavesh Yeh MD Anesthesia General Findings Pain and Tearing of the rotator Cuff Description of Procedure Patient brought to the operative room #7. A general anesthetic was administered. The patient was placed in the beach chair position with the RIGHT shoulder exposed.? After sterile prep and drape, standard posterior and lateral portals were used for arthroscopy. The joint itself looked reasonably good the biceps tendon was grossly intact.? There was a very large tear of the rotator cuff in the supraspinatus and subscapular regions. There was some extension into the infraspinatus as well. This was gently debrided.? The subacromial space had an intense bursa, this was debrided with a shaver and acromioplasty performed arthroscopically.? The subacromial space was quite tight initially. I then proceeded to open the shoulder. A longitudinal incision made from the AC joint distalward over the shoulder.? Dissection carried down to the fascia. The fascia overlying the acromioclavicular joint was split. The AC joint found and a distal clavicle excision performed removing 3 to 4 millimeters of bone.? The edges beveled.? The deltoid was then split from the tip of the acromion. The remainder of the bursa was debrided.? The rotator cuff was torn in the supraspinatus, infraspinatus and subscapular areas. The tear was very large, at least quarter sized. This was debrided and repaired to bone using #2 Ethibond suture.? At this point the deltoid was repaired to itself, the acromion and the trapezius with #2 Ethibond. The skin was closed with 2-0 Vicryl and clay.? A sterile dressing was applied. The patient tolerated the procedure well and left the operating room satisfactory condition. Estimated Blood Loss 50 Drains No Packing No Pathology None sent Complications No immediate complications Condition Stable Disposition PACU [facility] Billing Surgery - Charge Forward: Surgery Billing ([id number] RTC Repair [id number] DCE)
[2024-10-19] MEDS: LACTATED RINGERS 1,000 ML 30 ML IV CONT ×2 (08:55)
[2024-10-19] MEDS: fentaNYL CITRATE INJ (*CRX) 100 MCG/2 ML VIAL 25 MCG IV PUSH ×8 (09:08→09:40)
[2024-10-19] MEDS: oxyCODONE HCL (*CRX) 5 MG TAB IR PO (10:20)
--- NOTE | 2024-10-19 11:30 | SUR.PREOP ---
PT APPLIED HER OWN SCOPALAMINE PATCH IN PREOP RT POSTERIOR EAR BEFORE SURGERY FROM ANOTHER MD RX
== END 2024-10-19 11:29 | disposition home or self-care (01) ==
PROVIDERS: PCP Physician Assistant; Visit Provider Orthopaedic Surgery
PROC: (CPT 29805; principal; 2024-10-19 07:30)
DX: M75.101 Unspecified rotator cuff tear or rupture of right shoulder, not specified as traumatic (principal); M19.011 Primary osteoarthritis, right shoulder; F17.210 Nicotine dependence, cigarettes, uncomplicated; F12.90 Cannabis use, unspecified, uncomplicated
CPT/HCPCS: 23412; 23120; J0690; A9270; J1596; J1885; J2004; J2250; J2405; J2704; J2710; J3010; J7120

== ENCOUNTER 2024-10-24 22:39 | Observation (INO) | payer OTHER, SELFPAY ==
[2024-10-24] VITALS (9 sets, daily range): BP systolic 94–125; BP diastolic 27–99; PULSE 112–121; RESP 14–27; TEMP 35.3; O2SAT 90–100
--- NOTE | ~2024-10-24 | XR_ITS ---
EXAMINATION: XR chest 1V portable DATE: 10/24/2024 23:11 INDICATION: Altered mental status TECHNIQUE: frontal view of the chest was obtained. COMPARISON: Chest radiograph dated 08/11/2024 FINDINGS: The lungs are clear with no focal airspace opacities, pulmonary edema, pleural effusion or pneumothor ax. The cardiomediastinal silhouette is normal. Distal right clavicle resection with skin clay abo ut the right shoulder. IMPRESSION: 1. No acute cardiopulmonary disease. Reviewed, dictated and finalized at location A.
--- NOTE | ~2024-10-24 | CT_ITS ---
EXAMINATION: CT brain wo con DATE: 10/25/2024 02:20 INDICATION: Altered mental status TECHNIQUE: Computed tomography (CT) of the head was performed without intravenous contrast. Sagittal and coronal reconstructions were performed. The mA was adjusted according to patient size. Iterative reconstruction technique was employed. The dose-length product was 681.00 mGy-cm. COMPARISON: None FINDINGS: No acute intracranial hemorrhage, acute infarction or abnormal extra axial fluid collection. Ventricl es are normal and symmetric. No mass/mass effect. There are some residual vascular contrast related t o contrast-enhanced CT from a couple hours prior. The orbits, paranasal sinuses and mastoid air cells are normal. IMPRESSION: 1. Normal head CT. Reviewed, dictated and finalized at location A. IMPRESSION: 1. Normal head CT.
--- NOTE | ~2024-10-24 | CT_ITS ---
EXAMINATION: CTA chest abdomen pelvis DATE: 10/24/2024 23:24 INDICATION: Abdominal pain, nausea and vomiting TECHNIQUE: Computed tomographic angiography (CTA) of the chest, abdomen and pelvis was performed with 100 cc of Omnipaque-350 intravenous contrast. Additional 3D reconstructions utilizing rotating maxim um intensity projection (MIP) were performed. Automated exposure control and iterative reconstruction technique were employed. The dose-length product was 699.52 mGy-cm. COMPARISON: PET/CT dated 01/09/2024 FINDINGS: Chest: Mild emphysema. Mild discoid atelectasis in the left lower lobe. No significant interval change in a 9 mm long flat lenticular intrafissural lymph node along the right minor fissure. Calcified left lowe r lobe nodule consistent with old granulomatous disease. No pneumonia, pulmonary edema or pleural eff usion. No pulmonary embolism. Heart size is normal. No pericardial effusion. Thoracic aorta is normal in caliber with no dissection. No pathologically enlarged thoracic lymphadenopathy. Small sliding-ty pe hiatal hernia. Moderate thoracic spondylosis with chronic T7-T9 compression fractures with up to 4 0% anterior vertebral body height loss at T9. Abdomen and pelvis: There are few scattered low-attenuation hepatic cysts the largest measuring up to 1.5 cm. Small splen ic calcification consistent with old granulomatous disease. Gallbladder, pancreas, right adrenal glan d and right kidney are normal. 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 7 mm hypo dense abnormality medial limb of the left adrenal gland. Moderate amount of stool in the sigmoid colo n and rectum with fluid layering in the more proximal colon consistent with diarrhea. No bowel obstru ction. There is subtle stranding about the distal descending colon consistent with a mild colitis whi ch could be infectious, inflammatory or less likely ischemic in etiology. Allred catheter within the d ecompressed bladder. The uterus is not identified and has likely been surgically resected. 3.2 cm lef t adnexal cyst. No free intraperitoneal gas or fluid. No pathologically enlarged abdominal or pelvic lymphadenopathy. There is scattered nonhemodynamically significant calcified atherosclerosis of the n ormal caliber abdominal aorta and many of the other arteries. Mild degenerative skeletal changes in the lumbar spine and pelvis. IMPRESSION: 1. Mild emphysema. No acute cardiopulmonary disease. 2. Verify positioning surrounding the descending colon suggestive of colitis and fluid in the proxima l to distal colon consistent with diarrhea. This could be infectious, inflammatory or less likely isc hemic in etiology. 3. Small sliding-type hiatal hernia. 4. Normal caliber aorta with no dissection or hemodynamically significant stenosis. Reviewed, dictated and finalized at location A. IMPRESSION: 1. Mild emphysema. No acute cardiopulmonary disease. 2. Verify positioning surrounding the descending colon suggestive of colitis an d fluid in the proximal to distal colon consistent with diarrhea. This could be infectious, inflammatory or less likely ischemic in etiology. 3. Small sliding-type hiatal hernia. 4. Normal caliber aorta with no dissection or hemodynamically significant steno sis.
--- NOTE | 2024-10-24 22:44 | ECG_ITS ---
Test Date: 2024-10-24 22:44:40 Measurements Intervals [place] Rate: 118 P: 87 PA: 162 QRS: 11 QRSD: 82 T: 77 QT: 308 QTc: 433 Interpretive Statements SINUS TACHYCARDIA WITH OCCASIONAL VENTRICULAR PREMATURE COMPLEXES BASELINE ARTIFACT- I, II, III, AVR, AVL, AVF, V1-V6 ABNORMAL ECG Compared to ECG 10/24/2024 22:43:51 Ventricular premature complex(es) now present Electronically Signed On 10-25-2024 16:24:41 CDT by Mumtaz Alvarado D.O.
--- NOTE | 2024-10-24 22:48 | ECG_ITS ---
Test Date: 2024-10-24 22:43:51 Measurements Intervals [place] Rate: 116 P: 80 SD: 167 QRS: -4 QRSD: 77 T: 74 QT: 302 QTc: 421 Interpretive Statements SINUS TACHYCARDIA EARLY PRECORDIAL R/S TRANSITION BORDERLINE ST-T WAVE ABNORMALITY- HIGH LATERAL LEADS ABNORMAL ECG Compared to ECG 08/11/2024 10:30:39 Ectopic atrial rhythm no longer present Electronically Signed On 10-25-2024 08:16:20 CDT by Mumtaz Alvarado D.O.
[2024-10-24] MEDS: LACTATED RINGERS 1,000 ML 999 ML (22:50)
[2024-10-24] MEDS: NALOXONE HCL 0.4 MG/ML VIAL (22:50)
[2024-10-24] MEDS: ONDANSETRON INJ 4 MG/2 ML VIAL (22:51)
--- NOTE | 2024-10-24 23:06 | PC.NURSE ---
Blood cultures drawn by via arterial stick.
[2024-10-24 23:08] LABS: Hematocrit 38.8 % (37.0-47.0); Hemoglobin 12.7 g/dL (12.0-15.0); Immature Granulocyte Percent A 1.4 % (0-0.5); Lymphocytes Absolute Auto 2.78 K/mm3 (0.9-3.2); Mean Corpuscular HGB Conc 32.7 g/dl (32-36); Mean Corpuscular Hemoglobin 30.2 pg (26-34); Mean Corpuscular Volume 92.2 fl (80-100); Nucleated Red Blood Cells Absolute Auto 0.000 K/mm3 (0.0-0.012); Nucleated Red Blood Cells Perc 0.0 % (0.0-0.2); Platelet Count Result 351 k/mm3 (150-375); Red Blood Count 4.21 M/mm3 (4.2-5.4); White Blood Count 25.5 K/mm3 (4.5-10.0)
[2024-10-24 23:09] LABS: Alveolar/Arterial O2 Gradient 67.1 mmHg; Fractional Inspired Oxygen 32 %; HCO3 ABG 13.9 mEq/l (22.0-26.0); Oxygen Content ABG 18.7 %vol (16.0-22.0); Oxygen Saturation ABG 99.2 % (95.0-100.0); PO2 ABG 143.6 mmHg (80.0-100.0); PO2 FiO2 Ratio Arterial Blood 4.49 %
[2024-10-24 23:13] LABS: Liters per Minute 3.0 LPM; Modified Allen's Test Pass; PCO2 ABG 14.9 mmHg (35.0-45.0); Site Drawn LEFT RADIAL
[2024-10-24 23:19] LABS: INR 1.0; Prothrombin Time 13.1 Seconds (11.1-14.7)
[2024-10-24 23:20] LABS: Acetaminophen < 10 ug/mL (10-30); Salicylate < 1.0 mg/dL (2-20)
[2024-10-24 23:21] LABS: Partial Thromboplastin Time 25.9 Seconds (22.3-36.8)
[2024-10-24 23:22] LABS: Alanine Aminotransferase 22 U/L (6-35); Albumin Level 4.1 g/dL (3.5-5.1); Alkaline Phosphatase 131 U/L (38-126); Anion Gap 17 mmol/L (4-12); Aspartate Amino Transferase 37 U/L (14-36); Bilirubin,Total 0.8 mg/dL (0.2-1.3); Blood Urea Nitrogen 29 mg/dL (7-17); Calcium 10.5 mg/dL (8.4-10.2); Carbon Dioxide 11 mmol/L (22-30); Chloride 106 mmol/L (98-107); Estimated Glomerular Filt Rate 35; Glucose 219 mg/dL (65-110); Potassium 4.3 mmol/L (3.4-5.0); Sodium 134 mmol/L (137-145); Total Protein 7.5 g/dL (6.3-8.2)
[2024-10-24 23:26] LABS: Anisocytosis 1+; Burr Cells 1+; Schistocytes Rare
[2024-10-24 23:32] LABS: Add Urine Microscopic? YES; Appearance Urine Clear (Clear); Glucose Urine UA Negative (Negative); Leukocyte Esterase Ur Trace LEU/UL (Negative); Need Manual Microscopic Reviewed; Nitrate Urine Negative (Negative); Specific Grav Ur 1.018 (1.001-1.035)
[2024-10-24 23:33] LABS: Troponin I 0.013 ng/mL (0.000-0.034)
[2024-10-24 23:38] LABS: Cannabinoid Screen Urine Positive (Negative)
[2024-10-25] VITALS (24 sets, daily range): BP systolic 121–167; BP diastolic 56–94; PULSE 110–126; RESP 9–22; TEMP 36.2–37.8; O2SAT 94–100; BMI 25.6
[2024-10-25] MEDS: LACTATED RINGERS 1,000 ML 999 ML IV CONT
--- NOTE | 2024-10-25 00:17 | PC.NURSE ---
2nd set of blood cultures drawn via right arterial stick by .
[2024-10-25] MEDS: CEFEPIME 2 GM in SODIUM CHLORIDE 0.9% IV 50 ML 100 ML IVPB (00:19)
[2024-10-25] MEDS: VANCOMYCIN 1,750 MG/NS 500 ML 1,750 MG/500 ML BAG 250 MG IVPB (01:02)
--- NOTE | 2024-10-25 01:38 | ED.AMS ---
HPI - Altered Mental Status General Chief Complaint: Altered Mental Status Stated Complaint: AMS, RECENT SHOULDER SURGERY. History of Present Illness HPI narrative: Patient with history of cyclic vomiting syndrome who smokes marijuana daily, recent right shoulder surgery on narcotic pain medication, presents here after her noticed that she seemed to be less responsive, and moaning about her abdominal pain, nausea and vomiting. To me, patient cannot say anything other than scream help me, my stomach hurts, I can't poop. Related Data Home Medications ?Medication ?Instructions ?Recorded ?Confirmed ?Last Taken ?Type amitriptyline 100 mg tablet 100 mg PO QHS 11/21/22 10/25/24 10/24/24 History atorvastatin 40 mg tablet 40 mg PO HS 12/25/23 10/25/24 10/24/24 History Allergies Allergy/AdvReac Type Severity Reaction Status Date / Time Sulfa (Sulfonamide Allergy Unknown Unknown Verified 10/24/24 23:37 Antibiotics) Review of Systems Review of Systems: All systems reviewed & are unremarkable except as noted in HPI and below PMFSH Past Medical History Medical History (Updated 10/25/24 @ 03:52 by Chel Omalley MD) Smoker Adhesive capsulitis of right shoulder Arthritis of right acromioclavicular joint Surgical History Surgical History History of nephrectomy, left History of History of surgery on arm History of tonsillectomy H/O: hysterectomy Family History Family History Mother Heart disease CHF (congestive heart failure) Father Cancer Sibling No problems noted. Social History Social History Smoking packs per day: 1 Smoking cigarettes per day: 20.0 Years smoked: 50 Smoking pack-years: 50.00 Smoking status: Current every day smoker Second hand tobacco smoke exposure: Yes Alcohol intake: never Substance use: current Substance use type: marijuana Other substance usage details: daily 50 years Do You Feel Safe in your Home?: Yes Lack of Transportation: No Lack of Food: Never True Current Housing: I Have Housing Concerned About Future Housing: No Difficulty Paying Gas/Electric Bills: No Difficulty Paying for Meds: No Currently Unemployed: No Education: High School Diploma/GED Difficulty w/ Childcare or Family Care: No Living arrangements: with family Occupation/Education: occupation 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 EYES: Conjunctiva normal ENT: Hearing grossly intact LUNGS: Tachypneic HEART: Tachycardic ABD: [Soft], slightly tender diffusely to palpation EXT: Bruises R shoulder SKIN: Bruises R shoulder NEURO: When she screams help me or I need to poop it is with very clear normal voice. No gross focal sensory or strength deficits. Course Vital Signs Vital signs: Vital Signs Pulse Rate 121 H 10/24/24 22:40 Respiratory Rate 27 H 10/24/24 22:40 Blood Pressure 118/44 L 10/24/24 22:40 Pulse Oximetry 100 10/24/24 22:40 Temperature 100.0 F H 10/25/24 02:52 Pulse Rate 117 H 10/25/24 03:17 Respiratory Rate 16 10/25/24 03:17 Blood Pressure 165/81 H 10/25/24 03:17 Pulse Oximetry 94 10/25/24 03:17 Oxygen Delivery Room Air 10/25/24 02:55 Oxygen Flow Rate 6 10/24/24 23:00 Procedures EJ/Peripheral Line Neck R: EJ/Peripheral Line Date: 10/24/24 EJ/Peripheral Line Time: 23:30 Skin Cleansed in Sterile Fashion: Yes Size (gauge): 20 IV Secured and Dressing Applied: Yes Patient Tolerated Procedure: well and no complications Arm R: EJ/Peripheral Line Date: 10/25/24 EJ/Peripheral Line Time: 23:35 Skin Cleansed in Sterile Fashion: Yes Ultrasound Guided: Yes Size (gauge): 18 IV Secured and Dressing Applied: Yes Patient Tolerated Procedure: well and no complications MDM - Altered Mental Status MDM Narrative Medical decision making narrative: Patient with history of cyclic vomiting syndrome who smokes marijuana daily, recent right shoulder surgery on narcotic pain medication, presents here after her noticed that she seemed to be less responsive, and moaning about her abdominal pain, nausea and vomiting. To me, patient cannot say anything other than scream help me, my stomach hurts, I can't poop. When she 1st arrived, she appeared quite obtunded, in distress, and was difficult to arouse, she is immediately placed on monitors, EJ access obtained by myself, 2nd ultrasound IV placed by myself, blood drawn by myself from arterial stick with ABG. She had no focal neurologic deficits, moving all extremities normally. Broad workup with my differential including possible PE given her recent surgery, opiate overdose, infection. Narcan and zofran given. Initial temp was low, patient was vomiting, and sepsis protocol with abx and IVF initiated. CTA chest/abd/pelvis obtained. When patient returned from CT, she actually is now much more awake and alert. I did fully open, she is speaking full sentences, her is now at bedside, and agrees that she is back to baseline. She had been taking her pain medication for surgery and had been more constipated as a result, had continue to smoke marijuana, and has started having abdominal pain, nausea vomiting, like she has with her chronic vomiting syndrome. Given this I have high suspicion for possible cannabinoid hyperemesis, and she is given a dose of droperidol. On re-evaluation, symptoms improved. CTA of her chest, abdomen, pelvis without large/central saddle embolus but otherwise nondiagnostic for PE, no signs of right heart strain, no consolidations, and on the abdomen/pelvis she does appear to have some enterocolitis, as well as constipation. Discussed with patient that I will be planning on admitting her to the hospital, she gets asked me for an enema to help her a bowel movement, since the constipation is higher up, I will try a dose of methylnaltrexone. Before getting the Relistor, she started having a massive bowel movement. Lab Data 10/24/24 23:00 10/24/24 23:00 Labs: Lab Results 10/24/24 10/24/24 10/25/24 Range/Units 23:00 23:05 02:06 WBC 25.5 H (4.5-10.0) K/mm3 RBC 4.21 (4.2-5.4) M/mm3 Hgb 12.7 (12.0-15.0) g/dL Hct 38.8 (37.0-47.0) % MCV 92.2 (80-100) fl MCH 30.2 (26-34) pg MCHC 32.7 (32-36) g/dl RDW 14.6 H (11.5-14.5) % Plt Count 351 (150-375) k/mm3 MPV 9.7 (7.4-10.4) fl Immature Gran % (Auto) 1.4 H (0-0.5) % Neut % (Auto) 85.1 H (45.5-73.1) % Lymph % (Auto) 10.9 L (18.3-44.2) % [place] % (Auto) 1.8 L (2.6-8.5) % Eos % (Auto) 0.3 (0-4.4) % Baso % (Auto) 0.5 (0.2-1.2) % Lymph # (Auto) 2.78 (0.9-3.2) K/mm3 [place] # (Auto) 0.5 (0.1-0.6) K/mm3 Eos # (Auto) 0.1 (0-0.3) K/mm3 Baso # (Auto) 0.1 (0.0-0.1) K/mm3 Abs Immat Gran (auto) 0.37 H (0.00-0.031) K/mm3 Absolute Neuts (auto) 21.7 H (1.3-6.7) K/mm3 Absolute Nucleated RBC 0.000 (0.0-0.012) K/mm3 Band Neutrophils % Not Reportable Nucleated RBC % 0.0 (0.0-0.2) % Platelet Estimate Adequate (Adequate) Anisocytosis 1+ [place] Cells 1+ Schistocytes Rare PT 13.1 (11.1-14.7) Seconds INR 1.0 APTT 25.9 (22.3-36.8) Seconds Sodium 134 L (137-145) mmol/L Potassium 4.3 (3.4-5.0) mmol/L Chloride 106 (98-107) mmol/L Carbon Dioxide 11 L (22-30) mmol/L Anion Gap 17 H (4-12) mmol/L BUN 29 H (7-17) mg/dL Creatinine 1.50 H (0.7-1.0) mg/dL Estim Creat Clear Calc Not Reportable Estimated GFR 35 L (59 - ) Glucose 219 H (65-110) mg/dL Lactic Acid 3.2 H 0.8 (0.7-2.0) mmol/L Calcium 10.5 H (8.4-10.2) mg/dL Total Bilirubin 0.8 (0.2-1.3) mg/dL AST 37 H (14-36) U/L ALT 22 (6-35) U/L Alkaline Phosphatase 131 H (38-126) U/L Troponin I 0.013 (0.000-0.034) ng/mL Total Protein 7.5 (6.3-8.2) g/dL Albumin 4.1 (3.5-5.1) g/dL Urine Color Dark yellow (Yellow) Urine Appearance Clear (Clear) Urine pH 6.0 (5.0-9.0) Ur Specific [place] 1.018 (1.001-1.035) Urine Protein 1+ H (Negative) mg/dL Urine Glucose (UA) Negative (Negative) mg/dL Urine Ketones Trace H (Negative) mg/dL Ur Blood (Man) Negative (Negative) Urine Nitrate Negative (Negative) Urine Bilirubin Negative (Negative) Urine Urobilinogen 1.0 (<2.0) mg/dL Add Ur Microanalysis Reviewed Leukocyte Esterase Rfl Trace H (Negative) EDWARD/UL Urine RBC 0-2 (0-2) /hpf Urine WBC 0-5 (0-3) /hpf Ur Squamous Epith Cells None seen (Few) /hpf Urine Bacteria None seen /hpf Urine Casts 11-20 Urine Mucus Present /lpf Salicylates < 1.0 L (2-20) mg/dL Urine Opiates Screen Positive A (Negative) Urine Methadone Screen Negative (Negative) Acetaminophen < 10 L (10-30) ug/mL Ur Barbiturates Screen Negative (Negative) Ur Phencyclidine Scrn Negative (Negative) Ur Amphetamine Screen Negative (Negative) U Benzodiazepines Scrn Negative (Negative) Urine Cocaine Screen Negative (Negative) U Cannabinoids Screen Positive A (Negative) Ethyl Alcohol < 10 (<10) mg/dL ABG Data ABG results: 10/24/24 23:06 Puncture Site Left radial ABG pH 7.589 H* ABG pCO2 14.9 L* ABG pO2 143.6 H ABG PO2/FiO2 Ratio 4.49 ABG HCO3 13.9 L ABG O2 Saturation 99.2 ABG O2 Content 18.7 ABG Base Excess -4.6 A-a Gradient 67.1 Oxyhemoglobin 95.0 Total Hemoglobin 13.8 O2 Delivery Device Nasal cannula O2 Liters/Min 3.0 FiO2 32 Critical Care Time Critical Care Time Critical Care Time: Yes Total Critical Care Time: 72 Discharge Plan Discharge Clinical Impression: Altered mental status, Cannabinoid hyperemesis syndrome, Enterocolitis Patient Disposition: Still a Patient Condition: Serious
--- NOTE | 2024-10-25 03:42 | ADMGEN ---
This patient, Franca Smiley, was admitted to 2 Medical Room 257-. Patient/family oriented to hospital policies and general routines including ID bracelet, bed and alarms, visiting hours, pain management, procedures, bathroom and other care routines, personal items, smoking policy, room service/diet, and visiting hours. Information on how to activate the Rapid Response Team has been discussed. Patient/Family are encouraged to report perceived risks to care and to ask questions if they do not understand what they are told or what they should do.
--- NOTE | 2024-10-25 06:55 | PM.IMHP ---
H&P: HPI History of Present Illness Date/Time: 10/25/24 06:55 Chief Complaint: Altered mental status Narrative: 64yo female with hx of cyclic vomiting syndrome, daily marijuana use and recent shoulder surgery who is brought in to the ED for altered mental status. Patient underwent a right rotator cuff repair and distal clavicle excision on 10/19/24. She was discharged on [place]. Patient presented to the ED after her noted her to be less responsive and moaning with complaints of abdominal pain, nausea and vomiting. She was unable to provide a hx to the ED provider. In the ED, she was tachycardic (121), hypothermic (95.6) and tachypneic. Pertinent labs: Lactic 3.2, WBC 25K, rare schistocytes, Na 134, bicarb 11 (AG 17), BUN 29, Cr 1.5, glucose 219, Calcium 10.5. No prior labs to compare. ABG showing 7.59/15/144 on 3L. UA was not consistent with UTI but did have trace ketones. UDS screen was positive for opiates and cannabinoids. Salicylates, acetaminophen and alcohol levels negative. CXR clear to my reading. Preliminary CTA Ch/A/P showing no large or central emboli but the rest of the pulmonary tree was nondiagnostic for subsegmental PE. No focal airspace disease but atelectasis noted left base. Thoracic aorta without dissection. She had hepatic steatosis, evidence of left nephrectomy, mild narrowing of the celiac and SMA and wall thickening and pericolinic fat stranding descending and sigmoid colon c/w inflammatory infectious colitis. There was prominent fluid and stool with multiple fluid filled small bowel loops. CT brain showing no acute findings. BCx collected. EKG showing sinus tachycardia (116). She was treated for sepsis with IV fluids and abx. She was given naloxone, droperidol. Relistor ordered but not given since she had a large BM in the ED. She was admitted for further care. Patient more awake and alert since admission and provides the following history. She began to have nausea and vomiting since returning home. No hematemesis. She states she 'passed out' and describes this as being conscious but not able to respond. She has cyclic vomiting syndrome and states this is typical presentation for her. She has crampy abdominal pain and took about 10 ExLax over the past few days. She has a patch that she wears behind her ear when she becomes nauseous (possibly scopolamine per family) and she was wearing this for the past few days. No headaches, vision changes, hearing changes, dysphagia or odynophagia. No hx of PUD. She has not had an EGD that she is aware of. She has had 3 colonoscopies (about every 5 years) with removal of benign polyps with her last colonoscopy 2 years ago. She has been having chest pain that comes on after developing nausea involving the 'whole chest'. No radiation to the pain. No CAD. Last treadmill stress test a few weeks ago was negative. No dysuria or hematuria. Her shoulder pain is tolerable and declines any further narcotics. The plan was for outpatient therapy once she saw the orthopedist in followup. 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 Social History Social History (Updated 10/25/24 @ 09:43 by Nnamdi Shay MD) Social History: Patient quit tobacco August 2024 after smoking 1ppd x 50yrs. No alcohol use. Smokes marijuana 1-2 joints per day. No other drug use and no hx of IVDU. Home with . Has 3 dogs, snake, chix and ducks. Code status - full Surrogate decision maker - blanka Love dtr Smoking packs per day: 1 Smoking cigarettes per day: 20.0 Years smoked: 50 Smoking pack-years: 50.00 Smoking status: Former smoker Second hand tobacco smoke exposure: Yes Alcohol intake: never Substance use: current Substance use type: marijuana Other substance usage details: daily 50 years Do You Feel Safe in your Home?: Yes Lack of Transportation: No Lack of Food: Never True Current Housing: I Have Housing Concerned About Future Housing: No Difficulty Paying Gas/Electric Bills: No Difficulty Paying for Meds: No Currently Unemployed: No Education: High School Diploma/GED Difficulty w/ Childcare or Family Care: No Living arrangements: with family Occupation/Education: occupation 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[employer] Gender identity (if verbalized by the patient): Female Spiritual care concerns: No Meds Home Medications and Allergies Home Medications ?Medication ?Instructions ?Recorded ?Confirmed ?Type amitriptyline 100 mg tablet 100 mg PO QHS 11/21/22 10/25/24 History atorvastatin 40 mg tablet 40 mg PO HS 12/25/23 10/25/24 History hydrocodone 7.5 mg-acetaminophen 1 tablet PO Q4H PRN pain #40 tabs 10/19/24 10/25/24 Rx 325 mg tablet Allergies Allergy/AdvReac Type Severity Reaction Status Date / Time Sulfa (Sulfonamide Allergy Unknown Unknown Verified 10/24/24 23:37 Antibiotics) Vital Signs Vital Signs - 24 hr 10/24/24 22:40 10/24/24 22:41 10/24/24 22:45 Temperature Pulse Rate 121 H 116 H 118 H Respiratory Rate 27 H 17 21 H Blood Pressure 118/44 L 118/44 L 94/56 L Pulse Oximetry 100 100 100 Oxygen Delivery Room Air Oxygen Flow Rate 10/24/24 22:48 10/24/24 22:50 10/24/24 22:55 Temperature Pulse Rate 114 H 117 H 121 H Respiratory Rate 14 20 23 H Blood Pressure 104/70 123/52 L 113/27 L Pulse Oximetry 98 98 100 Oxygen Delivery Oxygen Flow Rate 10/24/24 23:00 10/24/24 23:00 10/24/24 23:25 Temperature Pulse Rate 116 H 112 H Respiratory Rate 17 21 H Blood Pressure 96/69 L 113/51 L Pulse Oximetry 90 98 95 Oxygen Delivery Nasal Cannula Oxygen Flow Rate 6 10/24/24 23:30 10/25/24 00:15 10/25/24 00:20 Temperature 95.6 F L 97.3 F L 97.6 F Pulse Rate 113 H 118 H 115 H Respiratory Rate 23 H 18 14 Blood Pressure 125/99 H 148/87 H 145/87 H Pulse Oximetry 99 100 100 Oxygen Delivery Oxygen Flow Rate 10/25/24 00:25 10/25/24 00:36 10/25/24 00:46 Temperature 98.2 F 98.4 F Pulse Rate 117 H 116 H 115 H Respiratory Rate 19 16 9 L Blood Pressure 121/91 H 152/94 H 141/93 H Pulse Oximetry 100 100 100 Oxygen Delivery Oxygen Flow Rate 10/25/24 00:47 10/25/24 01:00 10/25/24 01:02 Temperature 98.4 F 98.7 F 98.8 F Pulse Rate 115 H 115 H 113 H Respiratory Rate 12 13 12 Blood Pressure 147/91 H Pulse Oximetry 100 100 100 Oxygen Delivery Oxygen Flow Rate 10/25/24 01:15 10/25/24 01:16 10/25/24 01:30 Temperature 99.1 F 99.1 F 99.3 F Pulse Rate 115 H 116 H 118 H Respiratory Rate 14 15 18 Blood Pressure 160/67 H Pulse Oximetry 100 100 100 Oxygen Delivery Oxygen Flow Rate 10/25/24 01:31 10/25/24 01:32 10/25/24 01:45 Temperature 99.3 F 99.4 F 99.5 F Pulse Rate 119 H 119 H 123 H Respiratory Rate 18 22 H 18 Blood Pressure 165/56 H Pulse Oximetry 100 100 100 Oxygen Delivery Oxygen Flow Rate 10/25/24 01:46 10/25/24 02:00 10/25/24 02:01 Temperature 99.5 F 99.5 F 99.5 F Pulse Rate 122 H 125 H 126 H Respiratory Rate 18 22 H 19 Blood Pressure 167/70 H 158/87 H Pulse Oximetry 100 100 100 Oxygen Delivery Oxygen Flow Rate 10/25/24 02:52 10/25/24 02:55 10/25/24 03:17 Temperature 100.0 F H Pulse Rate 117 H 117 H Respiratory Rate 13 16 Blood Pressure 153/70 H 165/81 H Pulse Oximetry 100 95 94 Oxygen Delivery Room Air Oxygen Flow Rate 10/25/24 03:51 10/25/24 03:55 Temperature 98.4 F Pulse Rate 110 H Respiratory Rate 16 Blood Pressure 141/61 H Pulse Oximetry 100 Oxygen Delivery Room Air Oxygen Flow Rate Exam Narrative: Tm 100.0 98.4 141/61 110 16 100% ra Gen - unwell appearing female in no acute respiratory distress who is nontoxic-appearing lying semi recumbent in bed HEENT - normocephalic. Atraumatic. Pupils equal round and reactive. Extraocular motions intact. Sclera clear and anicteric. Nares patent. Oropharynx was poorly visualized. No oral lesions. Dry mucous membranes. Tongue was midline. Palate brynn symmetrically. No facial asymmetry. Neck - neck was supple. No dominant adenopathy, thyromegaly or masses Chest - lungs are clear to auscultation bilaterally. No wheezes or crackles. Breast exam was deferred. CV - heart was regular rate and rhythm. S1-S2. No murmurs gallops or rubs. Abd - abdomen was soft. Diffusely tender with voluntary guarding. No obvious HSM. Ext - no clubbing, cyanosis or edema. 2+ DP pulses bilaterally. 2+ right radial pulse. Right anterior shoulder with dried vasoline dressing covering a dried horizontal wound that is well approximated with dried blood but no erythema, warmth or drainage. 2 small clay noted right posterior shoulder without erythema, warmth or drainage. Neuro - patient is alert and oriented x4. Strength is 5/5 in both upper and lower extremities except limited use of right arm due to recent surgery. Cranial nerves 2-12 are intact. Speech is clear. Normal sensation to the right hand. Psych - normal mood and affect. Patient is pleasant and cooperative. Skin - warm and dry. No rashes noted. H&P: Results Labs Labs: Short CBC 10/24/24 Range/Units 23:00 WBC 25.5 H (4.5-10.0) K/mm3 Hgb 12.7 (12.0-15.0) g/dL Hct 38.8 (37.0-47.0) % Plt Count 351 (150-375) k/mm3 BMP 10/24/24 23:00 Sodium 134 L Potassium 4.3 Chloride 106 Carbon Dioxide 11 L BUN 29 H Creatinine 1.50 H Glucose 219 H Calcium 10.5 H Cardiac Enzymes 10/24/24 Range/Units 23:00 Troponin I 0.013 (0.000-0.034) ng/mL Liver Function 10/24/24 Range/Units 23:00 Total Bilirubin 0.8 (0.2-1.3) mg/dL AST 37 H (14-36) U/L ALT 22 (6-35) U/L Alkaline Phosphatase 131 H (38-126) U/L Albumin 4.1 (3.5-5.1) g/dL Urine 10/24/24 Range/Units 23:05 Urine Color Dark yellow (Yellow) Urine Appearance Clear (Clear) Urine pH 6.0 (5.0-9.0) Ur Specific [place] 1.018 (1.001-1.035) Urine Protein 1+ H (Negative) mg/dL Urine Glucose (UA) Negative (Negative) mg/dL Assessment and Plan Assessment and plan (1) Sepsis: Code(s): A41.9 - Sepsis, unspecified organism Status: Acute Assessment and Plan: Patient presents with AMS and found to be septic (AMS, tachycardia, tachypnea, leukocytosis and lactic acidosis). Unclear if the renal insufficiency is acute or chronic given her hx of nephrectomy. CXR clear. UA not consistent with UTI. BCx pending. CTA Ch/A/P showing evidence of enterocolitis. She was given cefepime and vanco in ED. Change to Rocephin and Flagyl. Stop Vanco. Follow up on BCx (2) Enterocolitis: Code(s): K52.9 - Noninfective gastroenteritis and colitis, unspecified Status: Acute Assessment and Plan: She had a large BM in the ED and another BM since admission. Still with abd pain. Also having bright red blood per rectum. No hx of hemorrhoids. Suspect either rectal tear or related to enterocolitis. Check stool studies. Monitor HH. Consider GI consult. Abx as above. (3) Cannabinoid hyperemesis syndrome: Code(s): R11.2 - Nausea with vomiting, unspecified; F12.90 - Cannabis use, unspecified, uncomplicated Status: Acute Assessment and Plan: Patient with Cyclic vomiting syndrome probably triggered by her daily marijuana use. Educate about the benefits of abstaining from marijuana use. Still with nausea/vomiting. Continue Zofran prn. Add phenergan. NPO except for ice chips until n/v subsides. (4) Altered mental status: Code(s): R41.82 - Altered mental status, unspecified Status: Acute Assessment and Plan: Patient with AMS on arrival. CT brain showing no acute findings. Etiology could be related to sepsis picture, excessive narcotic use and/or marijuana use. Mental status better. Monitor for now. Check B12, TSH (5) Renal failure: Code(s): N19 - Unspecified kidney failure Status: Acute Assessment and Plan: Cr 1.5 on admission. Could be related to recent nephrectomy or acute from dehydration. Follow renal function, UOP and electrolytes (6) Rotator cuff tear, right: Code(s): M75.101 - Unspecified rotator cuff tear or rupture of right shoulder, not specified as traumatic Status: Acute Assessment and Plan: Patient had right rotator cuff repair 10/19. Wound site dry and does not clinical appear to be a possible source of infection. Will provide a courtesy call to ortho to inform them that the patient is here. Hold off on PT/OT unless ortho feels otherwise (7) Tobacco abuse: Code(s): Z72.0 - Tobacco use Status: Acute Assessment and Plan: Patient was educated about the benefits of smoking cessation. Plan DVT Prophylaxis - SCDs Code status - Full
[2024-10-25] MEDS: ONDANSETRON INJ 4 MG/2 ML VIAL IV PUSH (08:35)
[2024-10-25] MEDS: DEXTROSE 5%/0.9% SOD CHL 1,000 ML 70 ML IV CONT (10:57)
[2024-10-25] MEDS: cefTRIAXone 1 GM in SODIUM CHLORIDE 0.9% IV 50 ML 100 ML IVPB (10:57)
[2024-10-25] MEDS: PROMETHAZINE HCL 25 MG/ML AMPUL IM (10:57)
[2024-10-25] MEDS: metroNIDAZOLE 500 MG/ISO 100ML 500 MG/100 ML BAG 100 MG IVPB ×2 (12:26→21:20)
[2024-10-25] MEDS: PROMETHAZINE HCL 25 MG TABLET PO (17:47)
[2024-10-25 17:50] LABS: IFOB Positive Control Positive; Immunochemical Fecal Occult Bl Positive (N)
[2024-10-25 18:27] LABS: Toxigenic C. Diff NEGATIVE (NEGATIVE)
[2024-10-25] MEDS: ACETAMINOPHEN 500 MG TABLET 1000 MG PO (21:35)
[2024-10-26] MEDS: ONDANSETRON INJ 4 MG/2 ML VIAL IV PUSH (02:11)
[2024-10-26] MEDS: DEXTROSE 5%/0.9% SOD CHL 1,000 ML 70 ML IV CONT ×2 (02:15→23:00)
[2024-10-26] MEDS: PROMETHAZINE HCL 25 MG TABLET PO (04:44)
[2024-10-26 05:14] VITALS: BP 151/79; PULSE 105; RESP 16; TEMP 36.3; O2SAT 99
[2024-10-26] MEDS: metroNIDAZOLE 500 MG/ISO 100ML 500 MG/100 ML BAG 100 MG IVPB ×3 (05:20→21:04)
[2024-10-26 05:47] LABS: Alanine Aminotransferase 20 U/L (6-35); Albumin Level 3.3 g/dL (3.5-5.1); Alkaline Phosphatase 97 U/L (38-126); Anion Gap 8 mmol/L (4-12); Aspartate Amino Transferase 35 U/L (14-36); Bilirubin,Total 0.5 mg/dL (0.2-1.3); Blood Urea Nitrogen 16 mg/dL (7-17); Calcium 8.6 mg/dL (8.4-10.2); Carbon Dioxide 19 mmol/L (22-30); Chloride 107 mmol/L (98-107); Estimated CRCL calculation 42 ml/min; Estimated Glomerular Filt Rate 56; Glucose 147 mg/dL (65-110); Potassium 3.4 mmol/L (3.4-5.0); Sodium 134 mmol/L (137-145); Total Protein 6.2 g/dL (6.3-8.2)
[2024-10-26 05:58] LABS: Hematocrit 35.3 % (37.0-47.0); Hemoglobin 11.3 g/dL (12.0-15.0); Immature Granulocyte Percent A 0.6 % (0-0.5); Lymphocytes Absolute Auto 1.62 K/mm3 (0.9-3.2); Mean Corpuscular HGB Conc 32.0 g/dl (32-36); Mean Corpuscular Hemoglobin 30.0 pg (26-34); Mean Corpuscular Volume 93.6 fl (80-100); Nucleated Red Blood Cells Absolute Auto 0.000 K/mm3 (0.0-0.012); Nucleated Red Blood Cells Perc 0.0 % (0.0-0.2); Platelet Count Result 292 k/mm3 (150-375); Red Blood Count 3.77 M/mm3 (4.2-5.4); White Blood Count 22.3 K/mm3 (4.5-10.0)
[2024-10-26 06:16] LABS: Thyroid Stimulating Hormone Reflex 0.690 uIU/mL (0.465-4.68)
[2024-10-26 06:41] LABS: Anisocytosis 1+; Burr Cells 1+
[2024-10-26 06:42] LABS: Schistocytes None Seen
[2024-10-26 06:58] LABS: Vitamin B12 535.0 pg/mL (239-931)
[2024-10-26] MEDS: PROMETHAZINE HCL 25 MG/ML AMPUL IM ×3 (07:47→17:55)
[2024-10-26 08:00] VITALS: PULSE 105; RESP 16; O2SAT 99
[2024-10-26] MEDS: cefTRIAXone 1 GM in SODIUM CHLORIDE 0.9% IV 50 ML 100 ML IVPB (08:37)
[2024-10-26] MEDS: CHOLECALCIFEROL (VITAMIN D3) 125 MCG (5,000 UNITS) TABLET PO (08:44)
[2024-10-26] MEDS: POTASSIUM CHLORIDE 20 MEQ ER TABLET 40 MEQ PO (08:44)
--- NOTE | 2024-10-26 09:18 | PM.PNORT ---
Progress Note: A&P Assessment and Plan (1) Altered mental status: Code(s): R41.82 - Altered mental status, unspecified Status: Acute Assessment and Plan: Patient came into the hospital confused and with question sepsis. She think there is a reasonable possibility she took too much narcotic. Was given Narcan in the emergency room and seemed to improve. Today she looks pretty good. Her incision is clean. Subjective Subjective Date/Time Seen: 10/26/24 09:18 Principal diagnosis: Confusion Review of Systems Review of Systems: All systems reviewed & are unremarkable except as noted in HPI and below Exam Narrative: Patient is neurologically intact. Incision is clean no redness there is minimal swelling. Objective Data Vital Signs Vital Signs: Vital Signs - 24 hr 10/25/24 09:22 10/25/24 11:00 10/25/24 14:00 Temperature 97.2 F L Pulse Rate 119 H Respiratory Rate 16 Blood Pressure 149/77 H Pulse Oximetry 98 98 Oxygen Delivery Room Air Room Air 10/25/24 20:34 10/26/24 05:14 Temperature 98.4 F 97.4 F L Pulse Rate 118 H 105 H Respiratory Rate 16 16 Blood Pressure 151/83 H 151/79 H Pulse Oximetry 99 99 Oxygen Delivery Intake/Output Intake/Output: Intake & Output 10/23/24 10/24/24 10/25/24 10/26/24 23:59 23:59 23:59 23:59 Intake Total 2800 1050 Output Total 1625 Balance 1175 1050 Meds/Results Medications: Active Medications Generic Name Dose Route Start Last Admin Trade Name Freq PRN Reason Stop Dose Admin Acetaminophen 1,000 mg 10/25/24 10:07 10/25/24 21:35 Acetaminophen 500 Mg Tablet PO 1,000 mg Q6H PRN Administration Mild Pain (1-3) or Fever Acetaminophen 650 mg 10/25/24 10:07 Acetaminophen 650 Mg Suppository RECTAL Q6H PRN Mild Pain (1-3) or Fever Metronidazole 500 mg in 100 mls @ 100 mls/hr 10/25/24 12:00 10/26/24 05:20 Flagyl 500 Mg/Iso Soln 100 Ml IVPB 100 mls/hr Q8HR RD Administration Ceftriaxone Sodium 1 gm/ 50 mls @ 100 mls/hr 10/25/24 10:10 10/26/24 08:37 Sodium Chloride IVPB 100 mls/hr QAM RD Administration Dextrose/Sodium Chloride 1,000 mls @ 70 mls/hr 10/25/24 10:15 10/26/24 02:15 Dextrose 5% Sodium Chloride 0.9% IV CONT 70 mls/hr .[id number] RD Administration Ondansetron HCl 4 mg 10/25/24 08:16 10/26/24 02:11 Ondansetron Inj 4 Mg/2 Ml Vial IV PUSH 4 mg Q6H PRN Administration Nausea And Vomiting Promethazine HCl 25 mg 10/25/24 10:07 10/26/24 04:44 Promethazine Hcl 25 Mg Tablet PO 25 mg Q4H PRN Administration Nausea And Vomiting Promethazine HCl 25 mg 10/25/24 10:07 10/26/24 07:47 Promethazine Hcl 25 Mg/Ml Ampul IM 25 mg Q4H PRN Administration Nausea And Vomiting Vitamin D 125 mcg 10/26/24 09:00 10/26/24 08:44 Cholecalciferol (Vitamin D3) 125 Mcg (5,000 Units) Tablet PO [address] Administration Radiology Results: ITS Impressions Chest X-Ray 10/25/24 08:23 IMPRESSION: 1. No acute cardiopulmonary disease. Head CT 10/25/24 08:36 IMPRESSION: 1. Normal head CT. Chest/Abdomen/Pelvis CTA 10/25/24 12:11 IMPRESSION: 1. Mild emphysema. No acute cardiopulmonary disease. 2. Verify positioning surrounding the descending colon suggestive of colitis and fluid in the proximal to distal colon consistent with diarrhea. This could be infectious, inflammatory or less likely ischemic in etiology. 3. Small sliding-type hiatal hernia. 4. Normal caliber aorta with no dissection or hemodynamically significant stenosis. Labs Labs: Laboratory Results - last 24 hr 10/25/24 10/26/24 17:19 05:00 WBC 22.3 H RBC 3.77 L Hgb 11.3 L Hct 35.3 L MCV 93.6 MCH 30.0 MCHC 32.0 RDW 15.1 H Plt Count 292 MPV 9.6 Immature Gran % (Auto) 0.6 H Neut % (Auto) 85.6 H Lymph % (Auto) 7.3 L [place] % (Auto) 5.8 Eos % (Auto) 0.5 Baso % (Auto) 0.2 Lymph # (Auto) 1.62 [place] # (Auto) 1.3 H Eos # (Auto) 0.1 Baso # (Auto) 0.1 Abs Immat Gran (auto) 0.14 H Absolute Neuts (auto) 19.1 H Absolute Nucleated RBC 0.000 Band Neutrophils % Not Reportable Nucleated RBC % 0.0 Platelet Estimate Adequate Anisocytosis 1+ [place] Cells 1+ Schistocytes None seen Sodium 134 L Potassium 3.4 Chloride 107 Carbon Dioxide 19 L Anion Gap 8 BUN 16 D Creatinine 1.00 Estim Creat Clear Calc 42 Estimated GFR 56 L Glucose 147 H Calcium 8.6 Total Bilirubin 0.5 AST 35 ALT 20 Alkaline Phosphatase 97 Total Protein 6.2 L Albumin 3.3 L Vitamin B12 535.0 Vitamin D 25-Hydroxy 17.1 Folate 9.4 TSH (Reflex) 0.690 Stl Occult Blood (IFOB) Positive H C. difficile (PCR) Negative
--- NOTE | 2024-10-26 12:12 | PM.IMPN ---
Progress Note: A&P Assessment and Plan (1) Sepsis: Code(s): A41.9 - Sepsis, unspecified organism Status: Acute Assessment and Plan: Patient presents with AMS and found to be septic (AMS, tachycardia, tachypnea, leukocytosis and lactic acidosis). Unclear if the renal insufficiency is acute or chronic given her hx of nephrectomy but Cr better with rehydration. CXR clear. UA not consistent with UTI. BCx pending. CTA Ch/A/P showing evidence of enterocolitis. She was given cefepime and vanco in ED. Changed to Rocephin and Flagyl. WBC trending down now. (2) Enterocolitis: Code(s): K52.9 - Noninfective gastroenteritis and colitis, unspecified Status: Acute Assessment and Plan: She had a large BM in the ED and another BM since admission. Still with abd pain. Also having bright red blood per rectum. No hx of hemorrhoids. Suspect either rectal tear or related to enterocolitis. Stool guaiac positive. CDiff negative. Stool Cx pending. No further BMs. Consider GI consult. Start clears with popsicles. Advance diet as tolerated Abx as above. (3) Cannabinoid hyperemesis syndrome: Code(s): R11.2 - Nausea with vomiting, unspecified; F12.90 - Cannabis use, unspecified, uncomplicated Status: Acute Assessment and Plan: Patient with Cyclic vomiting syndrome probably triggered by her daily marijuana use. Educated about the benefits of abstaining from marijuana use. Still with nausea/vomiting. Continue Zofran and phenergan prn. NPO except for ice chips until n/v subsides. Okay for popsicles. (4) Altered mental status: Code(s): R41.82 - Altered mental status, unspecified Status: Acute Assessment and Plan: Patient with AMS on arrival. CT brain showing no acute findings. B12, folate and TSH normal. VitD level low. Etiology could be related to sepsis picture, excessive narcotic use and/or marijuana use. Mental status better. Monitor for now. Replace VitD. (5) Renal failure: Code(s): N19 - Unspecified kidney failure Status: Acute Assessment and Plan: Cr 1.5 on admission. Could be related to recent nephrectomy or acute from dehydration. Cr better at 1.0 now so suspect some ANSELMO related to sepsis. Follow renal function, UOP and electrolytes (6) Rotator cuff tear, right: Code(s): M75.101 - Unspecified rotator cuff tear or rupture of right shoulder, not specified as traumatic Status: Acute Assessment and Plan: Patient had right rotator cuff repair 10/19. Wound site dry and does not clinical appear to be a possible source of infection. Courtesy call to ortho to inform them that the patient is here. Hold off on PT/OT unless ortho feels otherwise (7) Tobacco abuse: Code(s): Z72.0 - Tobacco use Status: Acute Assessment and Plan: Patient was educated about the benefits of smoking cessation. Plan DVT Prophylaxis - SCDs Code status - Full Subjective Date/time seen: 10/26/24 12:12 Interval history: 64yo female with hx of cyclic vomiting syndrome, daily marijuana use and recent shoulder surgery who is brought in to the ED for altered mental status. Patient underwent a right rotator cuff repair and distal clavicle excision on 10/19/24. +nausea/vomiting still mostly bilious. Does not feel hungry but asking for popsicles. Last BM was yesterday. Exam Narrative: AF 97.4 151/79 105 16 99% ra Gen - NARD Chest - clear anteriroly. nml RR CV - RRR S1/S2. Abd - soft, diffusely tender - Allred secured draining clear yellow urine Ext - no pedal edema. Neuro - nonfocal Psych - normal mood and affect. Patient is pleasant and cooperative. Skin - warm and dry. Objective Data Vital Signs Vital Signs: Vital Signs - 24 hr 10/25/24 14:00 10/25/24 20:34 10/26/24 05:14 Temperature 97.2 F L 98.4 F 97.4 F L Pulse Rate 119 H 118 H 105 H Respiratory Rate 16 16 16 Blood Pressure 149/77 H 151/83 H 151/79 H Pulse Oximetry 98 99 99 Oxygen Delivery 10/26/24 08:00 Temperature Pulse Rate 105 H Respiratory Rate 16 Blood Pressure Pulse Oximetry 99 Oxygen Delivery Room Air Intake/Output Intake/Output: Intake & Output 10/23/24 10/24/24 10/25/24 10/26/24 23:59 23:59 23:59 23:59 Intake Total 2800 1050 Output Total 1625 Balance 1175 1050 Meds/Results Medications: Active Medications Generic Name Dose Route Start Last Admin Trade Name Freq PRN Reason Stop Dose Admin Acetaminophen 1,000 mg 10/25/24 10:07 10/25/24 21:35 Acetaminophen 500 Mg Tablet PO 1,000 mg Q6H PRN Administration Mild Pain (1-3) or Fever Acetaminophen 650 mg 10/25/24 10:07 Acetaminophen 650 Mg Suppository RECTAL Q6H PRN Mild Pain (1-3) or Fever Metronidazole 500 mg in 100 mls @ 100 mls/hr 10/25/24 12:00 10/26/24 05:20 Flagyl 500 Mg/Iso Soln 100 Ml IVPB 100 mls/hr Q8HR RD Administration Ceftriaxone Sodium 1 gm/ 50 mls @ 100 mls/hr 10/25/24 10:10 10/26/24 08:37 Sodium Chloride IVPB 100 mls/hr QAM RD Administration Dextrose/Sodium Chloride 1,000 mls @ 70 mls/hr 10/25/24 10:15 10/26/24 02:15 Dextrose 5% Sodium Chloride 0.9% IV CONT 70 mls/hr .[id number] RD Administration Ondansetron HCl 4 mg 10/25/24 08:16 10/26/24 02:11 Ondansetron Inj 4 Mg/2 Ml Vial IV PUSH 4 mg Q6H PRN Administration Nausea And Vomiting Promethazine HCl 25 mg 10/25/24 10:07 10/26/24 04:44 Promethazine Hcl 25 Mg Tablet PO 25 mg Q4H PRN Administration Nausea And Vomiting Promethazine HCl 25 mg 10/25/24 10:07 10/26/24 07:47 Promethazine Hcl 25 Mg/Ml Ampul IM 25 mg Q4H PRN Administration Nausea And Vomiting Vitamin D 125 mcg 10/26/24 09:00 10/26/24 08:44 Cholecalciferol (Vitamin D3) 125 Mcg (5,000 Units) Tablet PO [address] Administration Radiology Results: ITS Impressions Chest X-Ray 10/25/24 08:23 IMPRESSION: 1. No acute cardiopulmonary disease. Head CT 10/25/24 08:36 IMPRESSION: 1. Normal head CT. Chest/Abdomen/Pelvis CTA 10/25/24 12:11 IMPRESSION: 1. Mild emphysema. No acute cardiopulmonary disease. 2. Verify positioning surrounding the descending colon suggestive of colitis and fluid in the proximal to distal colon consistent with diarrhea. This could be infectious, inflammatory or less likely ischemic in etiology. 3. Small sliding-type hiatal hernia. 4. Normal caliber aorta with no dissection or hemodynamically significant stenosis. Labs Labs: Laboratory Results - last 24 hr 10/25/24 10/26/24 17:19 05:00 WBC 22.3 H RBC 3.77 L Hgb 11.3 L Hct 35.3 L MCV 93.6 MCH 30.0 MCHC 32.0 RDW 15.1 H Plt Count 292 MPV 9.6 Immature Gran % (Auto) 0.6 H Neut % (Auto) 85.6 H Lymph % (Auto) 7.3 L [place] % (Auto) 5.8 Eos % (Auto) 0.5 Baso % (Auto) 0.2 Lymph # (Auto) 1.62 [place] # (Auto) 1.3 H Eos # (Auto) 0.1 Baso # (Auto) 0.1 Abs Immat Gran (auto) 0.14 H Absolute Neuts (auto) 19.1 H Absolute Nucleated RBC 0.000 Band Neutrophils % Not Reportable Nucleated RBC % 0.0 Platelet Estimate Adequate Anisocytosis 1+ [place] Cells 1+ Schistocytes None seen Sodium 134 L Potassium 3.4 Chloride 107 Carbon Dioxide 19 L Anion Gap 8 BUN 16 D Creatinine 1.00 Estim Creat Clear Calc 42 Estimated GFR 56 L Glucose 147 H Calcium 8.6 Total Bilirubin 0.5 AST 35 ALT 20 Alkaline Phosphatase 97 Total Protein 6.2 L Albumin 3.3 L Vitamin B12 535.0 Vitamin D 25-Hydroxy 17.1 Folate 9.4 TSH (Reflex) 0.690 Stl Occult Blood (IFOB) Positive H C. difficile (PCR) Negative
[2024-10-26] MEDS: ACETAMINOPHEN 500 MG TABLET 1000 MG PO (12:34)
[2024-10-26 14:00] VITALS: BP 157/99; PULSE 123; RESP 12; TEMP 36.7; O2SAT 100
[2024-10-26] MEDS: PROCHLORPERAZINE EDISYLATE 10 MG/2 ML VIAL IV PUSH ×2 (14:59→21:04)
[2024-10-26 20:40] VITALS: BP 154/91; PULSE 132; RESP 16; TEMP 37; O2SAT 99
[2024-10-26] MEDS: ATORVASTATIN 40 MG TABLET PO (21:04)
[2024-10-26 23:46] VITALS: O2SAT 97
[2024-10-27] MEDS: PROMETHAZINE HCL 25 MG/ML AMPUL IM ×2 (00:31→09:05)
[2024-10-27 05:25] LABS: Hematocrit 35.5 % (37.0-47.0); Hemoglobin 11.7 g/dL (12.0-15.0); Immature Granulocyte Percent A 1.0 % (0-0.5); Lymphocytes Absolute Auto 2.17 K/mm3 (0.9-3.2); Mean Corpuscular HGB Conc 33.0 g/dl (32-36); Mean Corpuscular Hemoglobin 30.5 pg (26-34); Mean Corpuscular Volume 92.4 fl (80-100); Nucleated Red Blood Cells Absolute Auto 0.000 K/mm3 (0.0-0.012); Nucleated Red Blood Cells Perc 0.0 % (0.0-0.2); Platelet Count Result 290 k/mm3 (150-375); Red Blood Count 3.84 M/mm3 (4.2-5.4); White Blood Count 23.5 K/mm3 (4.5-10.0)
[2024-10-27 05:53] LABS: Albumin Level 3.2 g/dL (3.5-5.1); Anion Gap 8 mmol/L (4-12); Blood Urea Nitrogen 11 mg/dL (7-17); Calcium 8.6 mg/dL (8.4-10.2); Carbon Dioxide 19 mmol/L (22-30); Chloride 108 mmol/L (98-107); Estimated CRCL calculation 46 ml/min; Estimated Glomerular Filt Rate > 60; Glucose 145 mg/dL (65-110); Magnesium 2.2 mg/dL (1.6-2.3); Potassium 3.7 mmol/L (3.4-5.0); Sodium 135 mmol/L (137-145)
[2024-10-27 05:56] LABS: Anisocytosis 1+
[2024-10-27 05:57] LABS: Microcytosis 1+ (NORMAL); Schistocytes None Seen
[2024-10-27] MEDS: metroNIDAZOLE 500 MG/ISO 100ML 500 MG/100 ML BAG 100 MG IVPB ×2 (06:00→13:28)
[2024-10-27] MEDS: PROCHLORPERAZINE EDISYLATE 10 MG/2 ML VIAL IV PUSH (06:05)
[2024-10-27 06:14] VITALS: BP 151/89; PULSE 124; RESP 16; TEMP 36.6; O2SAT 98
[2024-10-27] MEDS: CHOLECALCIFEROL (VITAMIN D3) 125 MCG (5,000 UNITS) TABLET PO (09:04)
[2024-10-27] MEDS: POTASSIUM/PHOSPHORUS/SODIUM 1.5 GM PACKET 1 PACKET PO (09:05)
[2024-10-27] MEDS: cefTRIAXone 2 GM in SODIUM CHLORIDE 0.9% IV 100 ML 200 ML IVPB (09:05)
--- NOTE | 2024-10-27 12:58 | P.CONGI_ITS ---
Assessment and Plan Assessment and plan (1) Enterocolitis: Code(s): K52.9 - Noninfective gastroenteritis and colitis, unspecified Status: Acute (2) Opioid-induced constipation: Code(s): K59.03 - Drug induced constipation; T40.2X5A - Adverse effect of other opioids, initial encounter Status: Acute (3) Hematochezia: Code(s): K92.1 - Melena Status: Acute (4) Hemorrhoids: Qualifiers: Hemorrhoid type: unspecified Qualified Code(s): K64.9 - Unspecified hemorrhoids Code(s): K64.9 - Unspecified hemorrhoids Status: Acute (5) Cannabinoid hyperemesis syndrome: Code(s): R11.2 - Nausea with vomiting, unspecified; F12.90 - Cannabis use, unspecified, uncomplicated Status: Acute (6) Nausea: Code(s): R11.0 - Nausea Status: Acute Plan 1. Colitis/leukocytosis/constipation/LLQ pain/hematochezia/hemorrhoids: Per patient last colonoscopy around 3 years ago was unremarkable other than small internal hemorrhoids. Patient underwent right shoulder surgery recently and had been taking ?way too much pain medicine? which she states caused severe constipation and exacerbated her cyclic vomiting syndrome. Patient states while constipated she had a 1 time episode of painless rectal bleeding while attempting to strain for a patient states that prior to her admission she went 5 days without a bowel movement but then on Saturday while in the ER she had a large formed bowel movement and states that she completely evacuated. Prior to her surgery she was having daily bowel movements that were formed and not urgent. CTA showed moderate amount of stool in the sigmoid colon and rectum with fluid layering in the more proximal colon consistent with diarrhea. No bowel obstruction. There is subtle stranding about the distal descending colon consistent with a mild colitis which could be infectious, inflammatory or less likely ischemic in etiology. CTA was done prior to her large bowel movement. Labs today showed WBC's 24, HGB 12, HCT 36, platelets 290. She still has an elevated heart rate around 124 but is afebrile with a temperature of 97.9? F. She admits to left lower quadrant abdominal pain that was worse when she was constipated and now is only mildly tender with palpation. She denies any diarrhea fecal occult blood positive and C diff negative. * Mild colitis noted on CTA is likely not the cause of her leukocytosis given that she is already on Rocephin and Flagyl. Primary care team to consider other causes of leukocytosis other than GI etiology * Rectal bleeding and heme-positive stools likely secondary to known hemorrhoids with opioid induced constipation. She denies any signs of active GI bleeding since admission * Patient advised to use pain medication sparingly and take stool softeners and MiraLax adjusted to comfort if constipation occurs again * Recommended patient follow up in the office outpatient if symptoms persist 2. Cyclic vomiting syndrome/chronic marijuana use/nausea: Patient states she has never had an EGD. She uses marijuana daily. Her cyclic vomiting syndrome occurs episodically but typically improves with antiemetics. Patient was experiencing nausea prior to admission but states that her nausea and vomiting have improved with antiemetics. Prior to admission she was not taking any antacid medications. She denies any reflux symptoms or swallowing difficulty. * Continue supportive care with antiemetics * Recommended cessation of marijuana use as this may be exacerbating her symptoms * Given that patient has never had an EGD we can further discuss her symptoms and possible need for endoscopic evaluation at her outpatient visit Thank you very much for allowing me to share in the care of this very nice patient. This report may have been done utilizing a voice recognition system. Attempts have been made to correct errors. However, there may be uncorrected grammatical, spelling, and recognition errors present. GI Consult Note Consult date/time: 10/27/24 12:58 Reason for consult: Colitis HPI: Franca Smiley is a 64 year old female with PMSH of cyclic vomiting syndrome, daily marijuana use, HLD, left nephrectomy, x2, hysterectomy, and neck surgery. She was admitted on 10/25/2024 for altered mental status. Patient recently had right shoulder surgery and had been taking narcotic pain medication. Patient's stated that the patient seemed less responsive and was moaning about abdominal pain nausea and vomiting. In the ER she was noted to be tachycardic, hypothermic, and tachypneic. She was admitted for altered mental status, sepsis, can avoid hyperemesis syndrome and and enterocolitis. GI has been consulted for colitis and leukocytosis. Patient states that following her recent right shoulder surge she was ?taking too much pain medication? which causes severe constipation and exacerbated her cyclic vomiting syndrome. Patient states that prior to surgery she was having daily bowel movements that were formed and non urgent. Her last bowel movement was on Saturday while in the emergency room. Prior to admission the patient states that she had 1 moderate amount of bright red blood per rectum after attempting a straining bowel movement. She denies any further episodes of rectal bleeding. Patient states that she has been having left lower abdominal pain that was worse when she was constipated. This pain has improved since bowel movement but is still somewhat sensitive with palpation. Her nausea has improved with antiemetics since admission. She currently denies any vomiting, bloating, odynophagia, dysphagia, reflux, regurgitation, early satiety or unexplained weight loss. She states that she had decreased her p.o. intake prior to admission given that she was having a ?flare? of cyclic vomiting syndrome. She denies any diarrhea or melena. Patient quit smoking 3 years ago but has a 50 year history of smoking. She denies any alcohol use but uses marijuana daily. Family history negative for CRC or IBD. ENDOSCOPY HISTORY: EGD: Patient has never had an EGD COLONOSCOPY: Per patient her last colonoscopy was performed at [facility] around 3 years ago at which time she was noted to have small internal hemorrhoids but was otherwise unremarkable LABS AND STOOL STUDIES: Labs 10/27/2024: Sodium 134, potassium 4.3, BUN 29, creatinine 1.50, GFR 35, calcium 10.5 WBC 26, Hgb 13, Hct 39, MCV 92, platelets 351, INR 1.0 Total bilirubin 0.8, AST 37, ALT 22, Alkaline Phos 131, albumin 4.1 Lactic acid 3.2 fecal occult stool positive and C-Diff negative 10/25/2024 Labs 10/27/2024: WBC 24, HGB 12, HCT 36, MCV 92, platelets 290 Sodium 135, potassium 3.7, BUN 11, creatinine 0.89, GFR > 60, calcium 8.6, phosphorus 2.2, magnesium 2.2 Total bilirubin 0.5, AST 35, ALT 20, alkaline phosphatase 97, albumin 3.2 B12 535, vitamin-D 17.1, folate 9.4 and TSH 0.690 IMAGING: CTA chest/abdomen/pelvis 10/25/2024: Mild emphysema no acute cardiopulmonary disease . Moderate amount of stool in the sigmoid colon and rectum with fluid layering in the more proximal colon consistent with diarrhea. No bowel obstruction. There is subtle stranding about the distal descending colon consistent with mild colitis which could be infectious, inflammatory or less likely ischemic in etiology. Small sliding hiatal hernia. Normal caliber aorta with no dissection or hemodynamically significant stenosis Review of Systems 2 Constitutional: Constitutional: Reports as per HPI ENT: Reports as per HPI Cardiovascular: Cardiovascular: Reports as per HPI, Denies chest pain and Reports dyspnea (while constipated) Respiratory: Respiratory: Denies cough and Reports dyspnea (while constipated) Gastrointestinal: Gastrointestinal: Reports as per HPI Musculoskeletal: Musculoskeletal: Reports as per HPI Integumentary/Breasts: Skin/Breast: Reports as per HPI Psychiatric: Psychiatric: Reports as per HPI Endocrine: Endocrine: Reports no additional endocrine complaints Hematologic/Lymphatic: Hematologic/Lymphatic: Reports no additional hematologic/lymphatic complaints [facility] Past Medical History Medical History (Updated 10/27/24 @ 13:21 by Sada Thomas APRN) Cyclical vomiting syndrome not associated with migraine Marijuana use 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 Social History Social History (Updated 10/25/24 @ 09:43 by Nnamdi Shay MD) Social History: Patient quit tobacco August 2024 after smoking 1ppd x 50yrs. No alcohol use. Smokes marijuana 1-2 joints per day. No other drug use and no hx of IVDU. Home with . Has 3 dogs, snake, chix and ducks. Code status - full Surrogate decision maker - blanka Love dtr Smoking packs per day: 1 Smoking cigarettes per day: 20.0 Years smoked: 50 Smoking pack-years: 50.00 Smoking status: Former smoker Second hand tobacco smoke exposure: Yes Alcohol intake: never Substance use: current Substance use type: marijuana Other substance usage details: daily 50 years Do You Feel Safe in your Home?: Yes Lack of Transportation: No Lack of Food: Never True Current Housing: I Have Housing Concerned About Future Housing: No Difficulty Paying Gas/Electric Bills: No Difficulty Paying for Meds: No Currently Unemployed: No Education: High School Diploma/GED Difficulty w/ Childcare or Family Care: No Living arrangements: with family Occupation/Education: occupation 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[employer] Gender identity (if verbalized by the patient): Female Spiritual care concerns: No Meds Home Medications and Allergies Home Medications ?Medication ?Instructions ?Recorded ?Confirmed ?Type amitriptyline 100 mg tablet 100 mg PO QHS 11/21/22 10/25/24 History atorvastatin 40 mg tablet 40 mg PO HS 12/25/23 10/25/24 History hydrocodone 7.5 mg-acetaminophen 1 tablet PO Q4H PRN pain #40 tabs 10/19/24 10/25/24 Rx 325 mg tablet lisinopril 5 mg tablet 5 mg PO DAILY 10/25/24 10/25/24 History scopolamine base 1 mg over 3 days 1 patch transdermal Q72H PRN 10/25/24 10/25/24 History transdermal patch nausea and vomiting Allergies Allergy/AdvReac Type Severity Reaction Status Date / Time Sulfa (Sulfonamide Allergy Unknown Unknown Verified 10/24/24 23:37 Antibiotics) Vital Signs Vital Signs - 24 hr 10/26/24 14:00 10/26/24 20:40 10/26/24 23:46 Temperature 98.0 F 98.6 F Pulse Rate 123 H 132 H Respiratory Rate 12 16 Blood Pressure 157/99 H 154/91 H Pulse Oximetry 100 99 97 Oxygen Delivery Room Air Fraction of Inspired Oxygen 21 10/27/24 06:14 10/27/24 09:05 Temperature 97.9 F Pulse Rate 124 H Respiratory Rate 16 Blood Pressure 151/89 H Pulse Oximetry 98 Oxygen Delivery Room Air Fraction of Inspired Oxygen Exam 2 Const: General: cooperative, healthy appearing, comfortable, no acute distress and well developed Orientation/consciousness: oriented to person, oriented to place, oriented to time and patient oriented x3 HENMT: Head: normal to inspection, normocephalic and atraumatic Mouth: Yes Normal oral and palatal mucosa present and Yes moist mucous membranes Eyes: General: appearance normal, both eyes and all related structures C onjunctivae: conjunctivae normal Sclera: sclerae normal Pupils: Equal, round and reactive pupils present Neck: Neck: normal visual inspection Chest: Chest palpation & inspection: normal inspection of the chest Resp: Effort & Inspection: normal respiratory effort and able to speak in complete sentences Auscultation: clear to auscultation bilaterally Cardio: Jugular venous distension: no JVD Rate: regular rate Rhythm: r egular rhythm Heart sounds: S1 normal heart sound present and S2 normal heart sound present GI: Inspection: normal to inspection GI Palp: Yes Soft to palpation and Yes No hepatosplenomegaly present Auscultation: normal bowel sounds Rectal Exam: deferred Skin: General skin exam: normal color and no rashes or lesions noted Neuro: General: oriented to person, oriented to place, oriented to time and patient oriented x3 Cranial nerves: Yes Equal, round and reactive pupils present Speech: normal speech Extrem: General: normal to inspection and no clubbing, cyanosis or edema Psych: Appearance: grossly normal and well kempt Affect: normal affect Results Labs 10/27/24 04:52 10/27/24 04:52 Labs: Short CBC 10/27/24 Range/Units 04:52 WBC 23.5 H (4.5-10.0) K/mm3 Hgb 11.7 L (12.0-15.0) g/dL Hct 35.5 L (37.0-47.0) % Plt Count 290 (150-375) k/mm3 BMP 10/27/24 04:52 Sodium 135 L Potassium 3.7 Chloride 108 H Carbon Dioxide 19 L BUN 11 D Creatinine 0.89 Glucose 145 H Calcium 8.6 Liver Function 10/27/24 Range/Units 04:52 Albumin 3.2 L (3.5-5.1) g/dL
--- NOTE | 2024-10-27 13:55 | P.PNIM_ITS ---
Progress Note: A&P Assessment and Plan (1) Sepsis: Code(s): A41.9 - Sepsis, unspecified organism Status: Acute Assessment and Plan: Patient presents with AMS and found to be septic (AMS, tachycardia, tachypnea, leukocytosis and lactic acidosis). Unclear if the renal insufficiency is acute or chronic given her hx of nephrectomy but Cr better with rehydration. CXR clear. UA not consistent with UTI. BCx pending. CDiff negative. Stool Cx pending CTA Ch/A/P showing evidence of enterocolitis. She was given cefepime and vanco in ED. Changed to Rocephin and Flagyl. GI consulted but did not feel sepsis related to a GI source. WBC trending up again. Still tachycardic. TSH normal. No PE or PNA by CTA. Shoulder does appear to be infected. No other obvious source of infection. Patient is improving with current abx despite increasing WBC. (2) Enterocolitis: Code(s): K52.9 - Noninfective gastroenteritis and colitis, unspecified Status: Acute Assessment and Plan: She had a large BM in the ED and another BM on admission. Still with abd pain. Also having bright red blood per rectum. No hx of hemorrhoids. Suspect either rectal tear or related to enterocolitis. Stool guaiac positive. CDiff negative. Stool Cx pending. No further BMs. GI consulted. Started clears and advanced diet as tolerated Abx as above. (3) Cannabinoid hyperemesis syndrome: Code(s): R11.2 - Nausea with vomiting, unspecified; F12.90 - Cannabis use, unspecified, uncomplicated Status: Acute Assessment and Plan: Patient with Cyclic vomiting syndrome probably triggered by her daily marijuana use and constipation. Educated about the benefits of abstaining from marijuana use. Still with nausea/vomiting. Continue Zofran and phenergan prn. Diet advanced. (4) Altered mental status: Code(s): R41.82 - Altered mental status, unspecified Status: Acute Assessment and Plan: Patient with AMS on arrival. CT brain showing no acute findings. B12, folate and TSH normal. VitD level low. Etiology could be related to sepsis picture, excessive narcotic use and/or marijuana use. Vit D replaced. Mental status better. Monitor for now. (5) Renal failure: Code(s): N19 - Unspecified kidney failure Status: Acute Assessment and Plan: Cr 1.5 on admission. Could be related to recent nephrectomy and/or acute from dehydration. Cr better at 0.9 now so suspect some ANSELMO related to sepsis. Follow renal function, UOP and electrolytes (6) Rotator cuff tear, right: Code(s): M75.101 - Unspecified rotator cuff tear or rupture of right shoulder, not specified as traumatic Status: Acute Assessment and Plan: Patient had right rotator cuff repair 10/19. Wound site dry Ortho informed that patient was admitted and they have evaluated the patient here. PT/OT for weakness. (7) Tobacco abuse: Code(s): Z72.0 - Tobacco use Status: Acute Assessment and Plan: Patient education about the benefits of smoking cessation. Plan DVT Prophylaxis - SCDs Code status - Full Subjective Date/time seen: 10/27/24 13:55 Interval history: 64yo female with hx of cyclic vomiting syndrome, daily marijuana use and recent shoulder surgery who is brought in to the ED for altered mental status. Patient underwent a right rotator cuff repair and distal clavicle excision on 10/19/24. Feeling better. Tolerating liquids. No BM since admission. No n/v. Exam Narrative: AF 97.9 151/89 124 16 98% ra Gen - NARD Chest - cCTA bilaterally, nml RR CV - RRR S1/S2. Abd - soft, diffusely tender but no guarding, +BS Ext - no pedal edema. Neuro - nonfocal Psych - normal mood and affect. Skin - warm and dry. Scant erythema around incision site of right shoulder Objective Data Vital Signs Vital Signs: Vital Signs - 24 hr 10/26/24 14:00 10/26/24 20:40 10/26/24 23:46 Temperature 98.0 F 98.6 F Pulse Rate 123 H 132 H Respiratory Rate 12 16 Blood Pressure 157/99 H 154/91 H Pulse Oximetry 100 99 97 Oxygen Delivery Room Air Fraction of Inspired Oxygen 21 10/27/24 06:14 10/27/24 09:05 Temperature 97.9 F Pulse Rate 124 H Respiratory Rate 16 Blood Pressure 151/89 H Pulse Oximetry 98 Oxygen Delivery Room Air Fraction of Inspired Oxygen Intake/Output Intake/Output: Intake & Output 10/24/24 10/25/24 10/26/24 10/27/24 23:59 23:59 23:59 23:59 Intake Total 2800 2950 440 Output Total 1625 950 Balance 1175 2000 440 Meds/Results Medications: Active Medications Generic Name Dose Route Start Last Admin Trade Name Freq PRN Reason Stop Dose Admin Acetaminophen 1,000 mg 10/25/24 10:07 10/26/24 12:34 Acetaminophen 500 Mg Tablet PO 1,000 mg Q6H PRN Administration Mild Pain (1-3) or Fever Acetaminophen 650 mg 10/25/24 10:07 Acetaminophen 650 Mg Suppository RECTAL Q6H PRN Mild Pain (1-3) or Fever Atorvastatin Calcium 40 mg 10/26/24 21:00 10/26/24 21:04 Atorvastatin 40 Mg Tablet PO [address] Administration Metronidazole 500 mg in 100 mls @ 100 mls/hr 10/25/24 12:00 10/27/24 13:28 Flagyl 500 Mg/Iso Soln 100 Ml IVPB 100 mls/hr Q8HR RD Administration Dextrose/Sodium Chloride 1,000 mls @ 70 mls/hr 10/25/24 10:15 10/27/24 10:09 Dextrose 5% Sodium Chloride 0.9% IV CONT Not Given .[id number] RD Ceftriaxone Sodium 2 gm/ 100 mls @ 200 mls/hr 10/27/24 08:00 10/27/24 09:35 Sodium Chloride IVPB Infused Q24H RD Infusion Lisinopril 5 mg 10/27/24 09:00 10/27/24 09:05 Lisinopril 5 Mg Tablet PO [address] Administration Prochlorperazine Edisylate 10 mg 10/26/24 12:25 10/27/24 06:05 Prochlorperazine Edisylate 10 Mg/2 Ml Vial IV PUSH 10 mg Q6H PRN Administration Nausea And Vomiting Promethazine HCl 25 mg 10/25/24 10:07 10/26/24 04:44 Promethazine Hcl 25 Mg Tablet PO 25 mg Q4H PRN Administration Nausea And Vomiting Promethazine HCl 25 mg 10/25/24 10:07 10/27/24 09:05 Promethazine Hcl 25 Mg/Ml Ampul IM 25 mg Q4H PRN Administration Nausea And Vomiting Vitamin D 125 mcg 10/26/24 09:00 10/27/24 09:04 Cholecalciferol (Vitamin D3) 125 Mcg (5,000 Units) Tablet PO [address] Administration Radiology Results: ITS Impressions Chest X-Ray 10/25/24 08:23 IMPRESSION: 1. No acute cardiopulmonary disease. Head CT 10/25/24 08:36 IMPRESSION: 1. Normal head CT. Chest/Abdomen/Pelvis CTA 10/25/24 12:11 IMPRESSION: 1. Mild emphysema. No acute cardiopulmonary disease. 2. Verify positioning surrounding the descending colon suggestive of colitis and fluid in the proximal to distal colon consistent with diarrhea. This could be infectious, inflammatory or less likely ischemic in etiology. 3. Small sliding-type hiatal hernia. 4. Normal caliber aorta with no dissection or hemodynamically significant stenosis. Labs Labs: Laboratory Results - last 24 hr 10/27/24 04:52 WBC 23.5 H RBC 3.84 L Hgb 11.7 L Hct 35.5 L MCV 92.4 MCH 30.5 MCHC 33.0 RDW 14.9 H Plt Count 290 MPV 9.6 Immature Gran % (Auto) 1.0 H Neut % (Auto) 83.6 H Lymph % (Auto) 9.2 L [place] % (Auto) 6.0 Eos % (Auto) 0.0 Baso % (Auto) 0.2 Lymph # (Auto) 2.17 [place] # (Auto) 1.4 H Eos # (Auto) 0.0 Baso # (Auto) 0.1 Abs Immat Gran (auto) 0.23 H Absolute Neuts (auto) 19.6 H Absolute Nucleated RBC 0.000 Band Neutrophils % Not Reportable Nucleated RBC % 0.0 Platelet Estimate Adequate Anisocytosis 1+ Microcytosis 1+ Schistocytes None seen Sodium 135 L Potassium 3.7 Chloride 108 H Carbon Dioxide 19 L Anion Gap 8 BUN 11 D Creatinine 0.89 Estim Creat Clear Calc 46 Estimated GFR > 60 Glucose 145 H Calcium 8.6 Phosphorus 2.2 L Magnesium 2.2 Albumin 3.2 L
[2024-10-27 14:00] VITALS: BP 116/82; PULSE 130; RESP 18; TEMP 36.3; O2SAT 100
[2024-10-27] MEDS: DEXTROSE 5%/0.9% SOD CHL 1,000 ML 70 ML IV CONT (14:31)
--- NOTE | 2024-10-30 14:53 | P.DS_ITS ---
DS: Admitting Diagnosis Discharge Date 10/27/24 Admitting Diagnosis Altered mental status DS: Discharge Diagnosis Discharge Diagnosis (1) Sepsis: Code(s): A41.9 - Sepsis, unspecified organism Status: Acute (2) Enterocolitis: Code(s): K52.9 - Noninfective gastroenteritis and colitis, unspecified Status: Acute (3) Cannabinoid hyperemesis syndrome: Code(s): R11.2 - Nausea with vomiting, unspecified; F12.90 - Cannabis use, unspecified, uncomplicated Status: Acute (4) Altered mental status: Code(s): R41.82 - Altered mental status, unspecified Status: Acute (5) Renal failure: Code(s): N19 - Unspecified kidney failure Status: Acute (6) Rotator cuff tear, right: Code(s): M75.101 - Unspecified rotator cuff tear or rupture of right shoulder, not specified as traumatic Status: Acute (7) Tobacco abuse: Code(s): Z72.0 - Tobacco use Status: Acute DS: Summary Hospital Course Reason for hospitalization: 64yo female with hx of cyclic vomiting syndrome, daily marijuana use and recent shoulder surgery who is brought in to the ED for altered mental status. Patient underwent a right rotator cuff repair and distal clavicle excision on 10/19/24. Please see H&P for details. Hospital Course: The following issues were addressed during her hospital course: (1) Sepsis: Patient presented with AMS and found to be septic (AMS, tachycardia, tachypnea, leukocytosis and lactic acidosis). Unclear if the renal insufficiency is acute or chronic given her hx of nephrectomy but Cr better with rehydration. CXR was clear. UA not consistent with UTI. BCx were pending at discharge but did return positive for Clostridium innocuum from anaerobic bottle only (verified 10/30/24 at 1310). CDiff negative. Stool Cx negative to date CTA Ch/A/P showing evidence of enterocolitis. She was given cefepime and vanco in ED. Changed to Rocephin and Flagyl. GI consulted but did not feel sepsis related to a GI source. WBC trending up again. Still tachycardic. TSH normal. No PE or PNA by CTA. Shoulder does appear to be infected. No other obvious source of infection. Patient is improving with current abx despite increasing WBC. (2) Enterocolitis: She had a large BM in the ED and another BM on admission. Still with abd pain. Also having bright red blood per rectum. No hx of hemorrhoids. Suspect either rectal tear or related to enterocolitis. Stool guaiac positive. CDiff negative. Stool Cx negative to date No further BMs. GI consulted. Started clears and advanced diet as tolerated Treated with abx as above. (3) Cannabinoid hyperemesis syndrome: Patient with Cyclic vomiting syndrome probably triggered by her daily marijuana use and constipation. Educated about the benefits of abstaining from marijuana use. Still with nausea/vomiting. Treated with Zofran and phenergan prn. Diet advanced as tolerated. (4) Altered mental status: Patient with AMS on arrival. CT brain showing no acute findings. B12, folate and TSH normal. VitD level low. Etiology could be related to sepsis picture, excessive narcotic use and/or marijuana use. Vit D replaced. Mental status better. (5) Renal failure: Cr 1.5 on admission. Could be related to recent nephrectomy and/or acute from dehydration. Cr better at 0.9 now so suspect some ANSELMO related to sepsis. (6) Rotator cuff tear, right: Patient had right rotator cuff repair 10/19. Wound site dry without evidence of infection Ortho informed that patient was admitted and they have evaluated the patient here. (7) Tobacco abuse: Patient education about the benefits of smoking cessation. Patient was requesting discharge but explained that we were still waiting for culture results and that her WBC was increasing. Called back to the room by the nurse stating patient was signing out AMA. A family member was in the room with patient's permission and asked whet the next steps were. It was explained that we are still considering this to be a GI infection and are waiting for culture results. The family member then immediately stood and said to the patient that she was taking her to [place]. The nurse was informed and patient signed out AMA. After dischage, BCx returned positive on 10/28/24 at 1430 and verified 10/30/24 at 1310. Spoke with (10/30/24 at 1510) and he informed me that [facility] was aware that she had positive BCx and she was doing well. Status at Discharge Cognitive/behavioral status at discharge: stable Time Spent with Patient Time attestation: Total time spent providing and/or coordinating discharge services: 32 minutes Time spent: Greater than 30 minutes Exam Narrative: AF 97.9 151/89 124 16 98% ra Gen - NARD Chest - cCTA bilaterally, nml RR CV - RRR S1/S2. Abd - soft, diffusely tender but no guarding, +BS Ext - no pedal edema. Neuro - nonfocal Psych - normal mood and affect. Skin - warm and dry. Scant erythema around incision site of right shoulder DS: Data Data Completed and Pending Labs on day of discharge: Preliminary micro results at discharge 10/24/24 23:00 Blood Culture - Preliminary Blood Clostridium innocuum 10/25/24 00:11 Blood Culture - Preliminary Blood Discharge Plan Discharge Consulting providers: Danny De La Paz; Bhavesh Yeh; Sada Thomas; Mumtaz Alvarado; Donald Buitrago Patient Disposition: Left Against Medical Advice Patient Language: [place] Discharge Medications: No Action amitriptyline 100 mg tablet 100 mg PO QHS hydrocodone-acetaminophen 7.5-325 mg tablet 1 tablet PO Q4H PRN (Reason: pain) Qty: 40 0RF lisinopril 5 mg tablet 5 mg PO DAILY scopolamine base 1 mg over 3 days patch 3 day 1 patch transdermal Q72H PRN (Reason: nausea and vomiting) atorvastatin 40 mg tablet 40 mg PO HS Date of admission: 10/25/24 02:41 Primary Care Provider: FunmiLaura Admitting Provider: Shaye Pratt Attending physician on admission: Nnamdi Shay Condition: Serious
== END 2024-10-27 15:20 | disposition left against medical advice (07) ==
LOC: ANHED 22:49 → ANH2MED 10-25 03:19
PROVIDERS: Admitting Provider Internal Medicine; Emergency Provider Emergency Medicine; PCP Physician Assistant; Visit Provider Internal Medicine
DX: A41.9 Sepsis, unspecified organism (principal); K52.9 Noninfective gastroenteritis and colitis, unspecified; R11.2 Nausea with vomiting, unspecified; N19 Unspecified kidney failure; K59.03 Drug induced constipation; T40.2X5A Adverse effect of other opioids, initial encounter; K64.9 Unspecified hemorrhoids; F12.90 Cannabis use, unspecified, uncomplicated; Z87.891 Personal history of nicotine dependence; Z98.890 Other specified postprocedural states; Z79.899 Other long term (current) drug therapy
CPT/HCPCS: 36415; 36600; 70450; 71045; 71275; 74174; 80053; 80069; 80143; 80179; 80307; 81001; 82077; 82274; 82306; 82607; 82746; 82805; 83605; 83735; 84443; 84484; 85018; 85025; 85610; 85730; 87040; 87045; 87046; 87427; 87493; 93005; 96365; 96366; 96367; 96374; 96375; 99285; A9270; J0692; J0696; J0780; J1790; J1836; J2312; J2405; J2550; J3373; J7042; J7120; Q9967